=== PATIENT | male | born 1955 | race Caucasian/White ===

== ENCOUNTER → 2016-05-29 | Outpatient (CLI) | payer MEDICARE, MEDICAID | LOC: OD 17:00 | PROVIDERS: ATTEND Preventive Medicine Undersea and Hyperbaric Medicine | DX: L97.524 Non-pressure chronic ulcer of other part of left foot with necrosis of bone (principal); L97.512 Non-pressure chronic ulcer of other part of right foot with fat layer exposed ==

== ENCOUNTER → 2016-05-29 | Outpatient (CLI) | payer MEDICARE, MEDICAID ==
[2016-05-29 17:37] LABS: ABSOLUTE BASOPHILS # (AUTO) 0.1 10^3/uL (0.0-0.2); ABSOLUTE EOSINOPHILS # (AUTO) 0.2 10^3/uL (0.0-0.6); ABSOLUTE LYMPHOCYTES (AUTO) 2.8 10^3/uL (0.5-4.7); ABSOLUTE MONOCYTES (AUTO) 1.3 10^3/uL (0.1-1.4); ABSOLUTE NEUT (AUTO) 9.1 10^3/uL (1.7-8.2); BASOPHILS % (AUTO) 0.6 % (0-2); EOSINOPHILS % (AUTO) 1.1 % (0-6); HEMATOCRIT 47.6 % (37.9-51.0); HEMOGLOBIN 15.4 g/dL (13.5-17.0); HGB HCT DIFFERENCE -1.4; LYMPHOCYTES % (AUTO) 21.2 % (13-45); MEAN CORPUSCULAR HEMOGLOBIN 31.3 pg (27.0-33.4); MEAN CORPUSCULAR HGB CONC 32.3 g/dL (32.0-36.0); MEAN CORPUSCULAR VOLUME 97 fl (80-97); MONOCYTES % (AUTO) 9.5 % (3-13); RED BLOOD COUNT 4.91 10^6/uL (4.35-5.55); RED CELL DISTRIBUTION WIDTH 14.6 % (11.5-14.0); SEGMENTED NEUTROPHILS % (AUTO) 67.6 % (42-78); WHITE BLOOD COUNT 13.4 10^3/uL (4.0-10.5)
[2016-05-29 17:39] LABS: PROTHROMBIN TIME 31.7 SEC (11.4-15.4)
[2016-05-29 17:51] LABS: ALANINE AMINOTRANSFERASE 26 U/L (21-72); ALBUMIN 4.4 g/dL (3.5-5.0); ALKALINE PHOSPHATASE 74 U/L (38-126); ANION GAP 12 (5-19); ASPARTATE AMINO TRANSFERASE 23 U/L (17-59); BILIRUBIN,TOTAL 0.8 mg/dL (0.2-1.3); BLOOD UREA NITROGEN 24 mg/dL (7-20); C-REACTIVE PROTEIN 16.4 mg/L (<10.0); CALCIUM 9.6 mg/dL (8.4-10.2); CARBON DIOXIDE 26 mmol/L (22-30); CHLORIDE 107 mmol/L (98-107); CREATININE RESULT 1.49 mg/dL (0.52-1.25); GLUCOSE 85 mg/dL (75-110); POTASSIUM 4.6 mmol/L (3.6-5.0); SODIUM 145.4 mmol/L (137-145); TOTAL PROTEIN 7.2 g/dL (6.3-8.2)
[2016-05-29 18:14] LABS: ERYTHROCYTE SEDIMENTATION RATE 23 mm/hr (0-20)
== END ==
LOC: OD 16:29
PROVIDERS: ATTEND Internal Medicine
DX: L97.524 Non-pressure chronic ulcer of other part of left foot with necrosis of bone (principal); I48.2 Chronic atrial fibrillation; Z79.01 Long term (current) use of anticoagulants
CPT/HCPCS: 36415; 80053; 85025; 85610; 85652; 86140

== ENCOUNTER → 2016-07-08 | Outpatient (CLI) | payer MEDICARE, MEDICAID ==
[2016-07-08 16:17] LABS: PROTHROMBIN TIME 24.8 SEC (11.4-15.4)
== END ==
LOC: OD 15:15
PROVIDERS: ATTEND Internal Medicine
DX: I48.2 Chronic atrial fibrillation (principal); Z79.02 Long term (current) use of antithrombotics/antiplatelets
CPT/HCPCS: 36415; 85610

== ENCOUNTER → 2016-07-08 | Outpatient (CLI) | payer MEDICARE, MEDICAID | LOC: OD 15:09 | PROVIDERS: ATTEND Preventive Medicine Undersea and Hyperbaric Medicine | DX: L97.524 Non-pressure chronic ulcer of other part of left foot with necrosis of bone (principal) ==

== ENCOUNTER → 2016-08-07 | Outpatient (CLI) | payer MEDICARE, MEDICAID | LOC: OD 16:45 | PROVIDERS: ATTEND Preventive Medicine Undersea and Hyperbaric Medicine | DX: L97.513 Non-pressure chronic ulcer of other part of right foot with necrosis of muscle (principal) ==

== ENCOUNTER → 2016-09-18 | Outpatient (CLI) | payer MEDICARE, MEDICAID | LOC: OD 14:34 | PROVIDERS: ATTEND Internal Medicine | DX: I48.2 Chronic atrial fibrillation (principal); Z79.01 Long term (current) use of anticoagulants; Z53.8 Procedure and treatment not carried out for other reasons ==

== ENCOUNTER → 2016-09-24 | Outpatient (CLI) | payer MEDICARE, MEDICAID ==
[2016-09-23 18:16] LABS: PROTHROMBIN TIME 23.7 SEC (11.4-15.4)
== END ==
LOC: OD 11:28
PROVIDERS: ATTEND Internal Medicine
DX: I48.2 Chronic atrial fibrillation (principal); Z79.01 Long term (current) use of anticoagulants
CPT/HCPCS: 36415; 85610

== ENCOUNTER → 2016-10-16 | Outpatient (CLI) | payer MEDICARE, MEDICAID ==
[2016-10-16 15:06] LABS: PROTHROMBIN TIME 23.8 SEC (11.4-15.4)
== END ==
LOC: OD 14:22
PROVIDERS: ATTEND Internal Medicine
DX: I48.2 Chronic atrial fibrillation (principal); Z79.01 Long term (current) use of anticoagulants
CPT/HCPCS: 36415; 85610

== ENCOUNTER → 2016-10-16 | Outpatient (CLI) | payer MEDICARE, MEDICAID ==
[2016-10-16 14:58] LABS: ABSOLUTE BASOPHILS # (AUTO) 0.1 10^3/uL (0.0-0.2); ABSOLUTE EOSINOPHILS # (AUTO) 0.1 10^3/uL (0.0-0.6); ABSOLUTE LYMPHOCYTES (AUTO) 2.7 10^3/uL (0.5-4.7); ABSOLUTE MONOCYTES (AUTO) 0.9 10^3/uL (0.1-1.4); BASOPHILS % (AUTO) 0.6 % (0-2); EOSINOPHILS % (AUTO) 0.8 % (0-6); HEMATOCRIT 46.9 % (37.9-51.0); HEMOGLOBIN 15.4 g/dL (13.5-17.0); HGB HCT DIFFERENCE -0.7; LYMPHOCYTES % (AUTO) 23.3 % (13-45); MEAN CORPUSCULAR HEMOGLOBIN 30.9 pg (27.0-33.4); MEAN CORPUSCULAR HGB CONC 32.8 g/dL (32.0-36.0); MEAN CORPUSCULAR VOLUME 94 fl (80-97); MONOCYTES % (AUTO) 7.5 % (3-13); RED BLOOD COUNT 4.97 10^6/uL (4.35-5.55); RED CELL DISTRIBUTION WIDTH 14.8 % (11.5-14.0); SEGMENTED NEUTROPHILS % (AUTO) 67.8 % (42-78); WHITE BLOOD COUNT 11.8 10^3/uL (4.0-10.5)
--- NOTE | 2016-10-16 15:10 | RADIOLOGY REPORT (SQ) ---
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 TECHNIQUE: AP, lateral and oblique radiographic images acquired of the right foot. LIMITATIONS: None. FINDINGS: MINERALIZATION: Normal. BONES: No acute fracture or dislocation. No worrisome bone lesions. JOINTS: No effusions. SOFT TISSUES: No soft tissue swelling. No foreign body. OTHER: No other significant finding. IMPRESSION: NEGATIVE STUDY OF THE RIGHT FOOT. NO RADIOGRAPHIC EVIDENCE OF ACUTE INJURY. TECHNICAL DOCUMENTATION: JOB ID: [id number] [employer]- All Rights Reserved
[2016-10-16 15:25] LABS: ALANINE AMINOTRANSFERASE 25 U/L (21-72); ALKALINE PHOSPHATASE 69 U/L (38-126); ANION GAP 10 (5-19); ASPARTATE AMINO TRANSFERASE 19 U/L (17-59); BILIRUBIN,DIRECT 0.3 mg/dL (0.0-0.4); BILIRUBIN,TOTAL 0.8 mg/dL (0.2-1.3); BLOOD UREA NITROGEN 20 mg/dL (7-20); C-REACTIVE PROTEIN 12.7 mg/L (<10.0); CALCIUM 9.6 mg/dL (8.4-10.2); CARBON DIOXIDE 29 mmol/L (22-30); CHLORIDE 103 mmol/L (98-107); GLUCOSE 95 mg/dL (75-110); POTASSIUM 4.4 mmol/L (3.6-5.0); SODIUM 141.6 mmol/L (137-145)
[2016-10-16 15:44] LABS: ERYTHROCYTE SEDIMENTATION RATE 13 mm/hr (0-20)
== END ==
LOC: WC 14:17
PROVIDERS: ATTEND Preventive Medicine Undersea and Hyperbaric Medicine
DX: L97.512 Non-pressure chronic ulcer of other part of right foot with fat layer exposed (principal)
CPT/HCPCS: 36415; 80053; 85025; 85610; 85652; 86140

== ENCOUNTER → 2016-11-07 | Outpatient (CLI) | payer MEDICARE, MEDICAID ==
--- NOTE | 2016-11-07 11:19 | RADIOLOGY REPORT (SQ) ---
EXAM DESCRIPTION: U/S ABD AORTIC SCREENING COMPLETED DATE/TIME: 11/07/2016 10:35 am REASON FOR STUDY: PERIPHERAL VASCULAR DISEASE, UNSPECIFIED N18.3 CHRONIC KIDNEY DISEASE, STAGE 3 (M ODERATE) I73.9 PERIPHERAL VASCULAR DISEASE, UNSPECIFIED I12.9 HYPERTENSIVE CHRONIC KIDNEY DISEASE W STG 1-4/UNSP CHR COMPARISON: None. TECHNIQUE: Static and dynamic grayscale images acquired of the aorta and stored on PACs. Selected co tyler Doppler and spectral images recorded. LIMITATIONS: None. FINDINGS: AORTIC CALIBER MAXIMAL PROXIMAL: 2.0 cm. MID: 1.7 cm. DISTAL: 1.9 cm. ILIAC DIAMETER RIGHT: 1.3 cm. LEFT: 1.4 cm. OTHER: No other significant finding. IMPRESSION: NO ABDOMINAL AORTIC ANEURYSM. TECHNICAL DOCUMENTATION: JOB ID: [id number] [employer]- All Rights Reserved
--- NOTE | 2016-11-07 11:31 | RADIOLOGY REPORT (SQ) ---
EXAM DESCRIPTION: U/S RETROPERITON (RENAL/AORTA) COMPLETED DATE/TIME: 11/07/2016 10:31 am REASON FOR STUDY: CKD STAGE 3 N18.3 CHRONIC KIDNEY DISEASE, STAGE 3 (MODERATE) I73.9 PERIPHERAL VA SCULAR DISEASE, UNSPECIFIED I12.9 HYPERTENSIVE CHRONIC KIDNEY DISEASE W STG 1-4/UNSP CHR COMPARISON: None. TECHNIQUE: Dynamic and static grayscale images acquired of the kidneys and bladder and recorded on P ACS. Additional selected color Doppler and spectral images recorded. LIMITATIONS: None. FINDINGS: RIGHT KIDNEY: Right kidney is 9.5 cm in length. Diffuse cortical thinning and increased e chogenicity from medical renal disease. There is a shadowing stone in the lower pole right kidney, 2 cm in diameter. LEFT KIDNEY: Left kidney is 12 cm in length. Grossly normal cortical thickness. Question 2 cm eric d cortical nodule along the left upper pole kidney. Patient has renal insufficiency, non contrasted MRI is recommended for followup, to include coronal T2, coronal STIR, coronal T1 weighted images, axi al T2, axial T1, and axial fat-sat T1 weighted images for followup. BLADDER: No masses. OTHER FINDINGS: No other significant finding. IMPRESSION: Diffuse right renal cortical thinning and increased echogenicity, likely from chronic ar terial insufficiency. Normal size left kidney with normal cortical thickness. Question 2 cm solid nodule upper pole left k idney for which noncontrast MRI is recommended for followup. TECHNICAL DOCUMENTATION: JOB ID: [id number]- All Rights Reserved
--- NOTE | 2016-11-07 12:26 | RADIOLOGY REPORT (SQ) ---
EXAM DESCRIPTION: CAROTID DOPPLER COMPLETED DATE/TIME: 11/07/2016 11:51 am REASON FOR STUDY: PAD I73.9 N18.3 CHRONIC KIDNEY DISEASE, STAGE 3 (MODERATE) I73.9 PERIPHERAL VASC ULAR DISEASE, UNSPECIFIED I12.9 HYPERTENSIVE CHRONIC KIDNEY DISEASE W STG 1-4/UNSP CHR COMPARISON: None. TECHNIQUE: Grayscale ultrasound, Doppler velocity and spectra, and color Doppler images acquired of the extra-cranial carotid and vertebral arteries. Images stored on PACS. LIMITATIONS: None. FINDINGS: RIGHT CAROTID CCA Velocities: Within normal limits. ICA Velocities Peak systolic 1.05 m/s. End diastolic 0.54 m/s. Proximal ICA/CCA peak systolic ratio 2.2. Heterogeneous irregular plaque noted within the ICA. Normal waveforms LEFT CAROTID CCA Velocities: Within normal limits. ICA Velocities Peak systolic 1.1 m/s. End diastolic 0.39 m/s. Proximal ICA/CCA peak systolic ratio 1.9. Irregular heterogeneous plaque noted in the proximal ICA. Normal waveforms. VERTEBRAL ARTERIES: Antegrade flow. Normal waveforms. SUBCLAVIAN ARTERIES: No finding. OTHER: No other significant finding. IMPRESSION: NO HEMODYNAMICALLY SIGNIFICANT STENOSIS. COMMENT: Quality ID #[id number]: Velocity criteria are extrapolated from the diameter data as defined by t he Society of Radiologists in Ultrasound Consensus Conference. Radiology 2003: 229; 340-346. TECHNICAL DOCUMENTATION: JOB ID: [id number]- All Rights Reserved
== END ==
LOC: RAD 09:06
PROVIDERS: ATTEND Family Medicine
DX: R19.00 Intra-abdominal and pelvic swelling, mass and lump, unspecified site (principal); I73.9 Peripheral vascular disease, unspecified; I25.10 Atherosclerotic heart disease of native coronary artery without angina pectoris; I12.9 Hypertensive chronic kidney disease with stage 1 through stage 4 chronic kidney disease, or unspecified chronic kidney disease; N18.3 Chronic kidney disease, stage 3 (moderate); E78.5 Hyperlipidemia, unspecified; Z72.0 Tobacco use
CPT/HCPCS: 76706; 76770; 93880

== ENCOUNTER 2016-11-13 14:36 | Emergency (ER) | payer MEDICARE, MEDICAID ==
--- NOTE | 2016-11-13 18:46 | ER Document Report ---
ED Fall - General Information source: Patient TRAVEL OUTSIDE OF THE [place]. IN LAST 30 DAYS: No - HPI Occurred: Other - Friday Where: Home Context: Slipped Location of injury/pain: Chest - right ribs <MANNY ESCALANTE - Last Filed: 11/13/16 22:34> <BRUCE ODONNELL - Last Filed: 11/14/16 04:26> - General Chief Complaint: Rib Pain Stated Complaint: RIB PAIN Time Seen by Provider: 11/13/16 18:33 Notes: Patient is a 61 year old male who presents to the ED with complaints of right rib pain secondary to a fall that occurred on Friday. Patient states he slipped on his walking shoe causing the fall, patient landed on bricks. Patient states he is in constant pain and it is exacerbated by movement but there are not any relieving factors. Patient states he has had fractured ribs in the past so he wrapped himself with an abdi bandage like in the past. Patient states today he developed a productive cough which he is attributing to smoking more than baseline over the weekend. Patient denies a known history of any lung diseases. Patient took 1500 mg of Tylenol this morning at 1000 which he states he takes daily. No other concerns or complaints at this time. ( MANNY ESCALANTE) - Related data Allergies/Adverse Reactions: No Known Allergies Allergy (Unverified 03/09/15 12:33) Past Medical History - General Information source: Patient - Social History Smoking Status: Current Every Day Smoker Chew tobacco use (# tins/day): No Frequency of alcohol use: Occasional Drug Abuse: None Patient has suicidal ideation: No Patient has homicidal ideation: No - Past Medical History Cardiac Medical History: Reports: Hx Coronary Artery Disease, Hx Heart Attack, Hx Hypertension Pulmonary Medical History: Denies: Hx Asthma, Hx Bronchitis, Hx COPD, Hx Pneumonia Neurological Medical History: Denies: Hx Cerebrovascular Accident, Hx Seizures Renal/ Medical History: Denies: Hx Peritoneal Dialysis Musculoskeltal Medical History: Reports Hx Arthritis - Immunizations Hx Diphtheria, Pertussis, Tetanus Vaccination: No Hx Pneumococcal Vaccination: 02/20/13 <MANNY ESCALANTE - Last Filed: 11/13/16 22:34> - Social History Family History: Reviewed & Not Pertinent <BRUCE ODONNELL - Last Filed: 11/14/16 04:26> Review of Systems - Review of Systems Constitutional: No symptoms reported EENT: No symptoms reported Cardiovascular: No symptoms reported Respiratory: See HPI, Cough - productive Gastrointestinal: No symptoms reported Genitourinary: No symptoms reported Male Genitourinary: No symptoms reported Musculoskeletal: See HPI, Other - right rib pain Skin: No symptoms reported Hematologic/Lymphatic: No symptoms reported Neurological/Psychological: No symptoms reported <MANNY ESCALANTE - Last Filed: 11/13/16 22:34> Physical Exam - General General appearance: Appears well - HEENT Head: Normocephalic, Atraumatic Eyes: Normal Extraocular movements intact: Yes Pupils: PERRL - Respiratory Respiratory status: No respiratory distress Chest status: Tender - right lateral chest wall pain Breath sounds: Normal - Cardiovascular Rhythm: Regular Heart sounds: Normal auscultation Murmur: No - Abdominal Inspection: Normal Distension: No distension Tenderness: Nontender. No: Tender - Back Back: Normal - Extremities General upper extremity: Normal inspection, Normal ROM General lower extremity: Normal inspection, Normal ROM - Neurological Neuro grossly intact: Yes Cognition: Normal Orientation: AAOx4 Naseem Coma Scale Eye Opening: Spontaneous [place] Coma Scale Verbal: Oriented [place] Coma Scale Motor: Obeys Commands Naseem Coma Scale Total: 15 Speech: Normal - Psychological Associated symptoms: Normal affect, Normal mood - Skin Skin Temperature: Warm Skin Moisture: Dry Skin Color: Normal <MANNY ESCALNATE - Last Filed: 11/13/16 22:34> Course <MANNY ESCALANTE - Last Filed: 11/13/16 22:34> - Diagnostic Test Radiology reviewed: Reports reviewed <BRUCE ODONNELL - Last Filed: 11/14/16 04:26> - Re-evaluation Re-evalutation: Patient presents with right reproducible chest wall pain after a fall on Friday under his right side. No acute findings on x-ray. Patient has reproducible tenderness to palpation. No abdominal pain. Patient began having a productive cough this morning. No evidence for x-ray but due to his comorbidities, patient will be started on Levaquin for possible early pneumonia related to his chest wall injury. Patient will be discharged home with Tylenol with codeine which she is taken from pain in the past as well as Levaquin. Stable for discharge. Understands and agrees with plan. Follow-up with PMD this week. (BRUCE ODONNELL) - Vital Signs Vital signs: Temp Pulse Resp BP Pulse Ox 98.0 F 73 14 150/92 H 97 11/13/16 19:05 11/13/16 19:05 11/13/16 19:05 11/13/16 19:05 11/13/16 19:05 Discharge <MANNY ESCALANTE - Last Filed: 11/13/16 22:34> <BRUCE ODONNELL - Last Filed: 11/14/16 04:26> - Discharge Clinical Impression: Cough Chest wall injury Qualifiers: Encounter type: initial encounter Qualified Code(s): S29.9XXA - Unspecified injury of thorax, initial encounter Condition: Stable Disposition: HOME, SELF-CARE Instructions: Chest Wall Pain ([facility]), Pneumonia ([facility]), Rib Injuries and Fractures ([facility]) Prescriptions: Acetaminophen with Codeine [Tylenol with Codeine #3 Tablet] 1 tab PO TIDP PRN # 14 tab PRN Reason: Levofloxacin [Levaquin 750 mg Tablet] 750 mg PO DAILY #5 tablet Referrals: RIMA REIS DO [Primary Care Provider] - Follow up in 3-5 days Scribe Attestation: 11/14/16 04:26 I personally performed the services described in the documentation, reviewed and edited the documentation which was dictated to the scribe in my presence, and it accurately records my words and actions. (BRUCE ODONNELL) Scribe Documentation - Scribe Written by Norberto:: norberto Tabor, 11/[id number] acting as scribe for :: Bill <MANNY ESCALANTE - Last Filed: 11/13/16 22:34>
[2016-11-13 19:07] VITALS: BP 150/92
--- NOTE | 2016-11-13 19:21 | RADIOLOGY REPORT (SQ) ---
EXAM DESCRIPTION: RIBS RIGHT W/PA CHEST COMPLETED DATE/TIME: 11/13/2016 6:57 pm REASON FOR STUDY: fall, pain COMPARISON: None. TECHNIQUE: Frontal view of the chest and additional views of the right ribs acquired. NUMBER OF VIEWS: Four views LIMITATIONS: None. FINDINGS: FRONTAL CXR: No pneumothorax. No pleural effusion. No atelectasis or infiltrates. RIBS: No displaced rib fractures. No lytic or blastic bony lesions. Couple old healed right rib fra ctures are identified. OTHER: No other significant finding. IMPRESSION: NO PNEUMOTHORAX. NO DISPLACED RIB FRACTURES. COMMENT: SITE OF TRAUMA/COMPLAINT MARKED/STAMP COMPLETED: No TECHNICAL DOCUMENTATION: JOB ID: [id number] [employer]- All Rights Reserved
[2016-11-13] MEDS ORDERED: ACETAMINOPHEN WITH CODEINE #3 TABLET PO ONE (19:46)
[2016-11-13] MEDS ORDERED: LEVOFLOXACIN 750 MG TABLET PO ONE (19:46)
== END 2016-11-13 21:07 | disposition home or self-care (01) ==
LOC: ER 14:36
DX: S29.9XXA Unspecified injury of thorax, initial encounter (principal); R07.81 Pleurodynia; R05 Cough; F17.200 Nicotine dependence, unspecified, uncomplicated; W01.0XXA Fall on same level from slipping, tripping and stumbling without subsequent striking against object, initial encounter; Y92.009 Unspecified place in unspecified non-institutional (private) residence as the place of occurrence of the external cause; I25.10 Atherosclerotic heart disease of native coronary artery without angina pectoris; I10 Essential (primary) hypertension; I25.2 Old myocardial infarction
CPT/HCPCS: 99283; 71101; A9270 ×2

== ENCOUNTER → 2016-11-29 | Outpatient (CLI) | payer MEDICARE, MEDICAID ==
[2016-11-29 15:23] LABS: ABSOLUTE BASOPHILS # (AUTO) 0.1 10^3/uL (0.0-0.2); ABSOLUTE EOSINOPHILS # (AUTO) 0.1 10^3/uL (0.0-0.6); ABSOLUTE LYMPHOCYTES (AUTO) 2.8 10^3/uL (0.5-4.7); ABSOLUTE NEUT (AUTO) 8.6 10^3/uL (1.7-8.2); BASOPHILS % (AUTO) 0.4 % (0-2); EOSINOPHILS % (AUTO) 0.8 % (0-6); HEMATOCRIT 45.4 % (37.9-51.0); HGB HCT DIFFERENCE -0.4; LYMPHOCYTES % (AUTO) 22.6 % (13-45); MEAN CORPUSCULAR HEMOGLOBIN 31.5 pg (27.0-33.4); MEAN CORPUSCULAR VOLUME 96 fl (80-97); MONOCYTES % (AUTO) 7.8 % (3-13); PROTHROMBIN TIME 21.8 SEC (11.4-15.4); RED BLOOD COUNT 4.76 10^6/uL (4.35-5.55); RED CELL DISTRIBUTION WIDTH 14.4 % (11.5-14.0); SEGMENTED NEUTROPHILS % (AUTO) 68.4 % (42-78); WHITE BLOOD COUNT 12.6 10^3/uL (4.0-10.5)
[2016-11-29 15:28] LABS: APPEARANCE,URINE CLEAR; BILIRUBIN,URINE NEGATIVE (NEGATIVE); GLUCOSE, URINE NEGATIVE (NEGATIVE); KETONES,URINE NEGATIVE (NEGATIVE); LEUKOCYTE ESTERASE,URINE NEGATIVE (NEGATIVE); NITRITE,URINE NEGATIVE (NEGATIVE); PROTEIN,URINE 30 mg/dL (NEGATIVE); URINE SPECIFIC GRAVITY 1.011; UROBILINOGEN,URINE NEGATIVE mg/dL (<2.0)
[2016-11-29 15:37] LABS: ALANINE AMINOTRANSFERASE 29 U/L (21-72); ALBUMIN 3.9 g/dL (3.5-5.0); ALKALINE PHOSPHATASE 77 U/L (38-126); ANION GAP 11 (5-19); ASPARTATE AMINO TRANSFERASE 18 U/L (17-59); BILIRUBIN,DIRECT 0.3 mg/dL (0.0-0.4); BILIRUBIN,TOTAL 0.7 mg/dL (0.2-1.3); BLOOD UREA NITROGEN 22 mg/dL (7-20); CALCIUM 9.3 mg/dL (8.4-10.2); CARBON DIOXIDE 27 mmol/L (22-30); CHLORIDE 105 mmol/L (98-107); CREATININE RESULT 1.28 mg/dL (0.52-1.25); GLUCOSE 85 mg/dL (75-110); POTASSIUM 4.7 mmol/L (3.6-5.0); SODIUM 142.5 mmol/L (137-145); TOTAL PROTEIN 6.6 g/dL (6.3-8.2); URIC ACID 6.7 mg/dL (3.5-8.5)
== END ==
LOC: OD 14:21
PROVIDERS: ATTEND Internal Medicine
DX: I12.9 Hypertensive chronic kidney disease with stage 1 through stage 4 chronic kidney disease, or unspecified chronic kidney disease (principal); N18.3 Chronic kidney disease, stage 3 (moderate); Z79.01 Long term (current) use of anticoagulants; I48.2 Chronic atrial fibrillation
CPT/HCPCS: 36415; 80053; 81001; 84550; 85025; 85610

== ENCOUNTER → 2016-12-03 | Outpatient (CLI) | payer MEDICARE, MEDICAID ==
--- NOTE | 2016-12-03 15:05 | RADIOLOGY REPORT (SQ) ---
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 TECHNIQUE: Noncontrast imaging of the abdomen, including axial and coronal T1 and T2 weighted sequen frantz and in and out of phase T1 sequences. LIMITATIONS: None. FINDINGS: RIGHT KIDNEY: Mildly atrophic with mild cortical thinning. No solid or cystic masses. N o hydronephrosis. LEFT KIDNEY: No solid or cystic masses. No hydronephrosis. ADRENAL GLANDS: Normal configuration. No mass. GALLBLADDER: No masses. No stones. No gallbladder wall thickening or pericholecystic fluid. LIVER AND BILIARY STRUCTURES: Normal. No ductal dilatation. SPLEEN: Normal. PANCREAS: Normal. Peripancreatic tissues normal. PERITONEUM: No ascites, gross adenopathy or implants. OTHER: No other significant finding. IMPRESSION: MILD ATROPHY OF THE RIGHT KIDNEY. OTHERWISE UNREMARKABLE NONCONTRAST MRI OF THE ABDOMEN . NO MASS OR OTHER ABNORMALITY IDENTIFIED IN THE LEFT KIDNEY. FINDINGS ON ULTRASOUND ARE DUE TO MIL D IRREGULARITY OF THE RENAL CONTOUR. TECHNICAL DOCUMENTATION: JOB ID: [id number] [employer]- All Rights Reserved
== END ==
LOC: RAD 10:39
PROVIDERS: ATTEND Internal Medicine Nephrology
DX: D41.02 Neoplasm of uncertain behavior of left kidney (principal); N18.3 Chronic kidney disease, stage 3 (moderate)
CPT/HCPCS: 74181

== ENCOUNTER → 2016-12-18 | Outpatient (CLI) | payer MEDICARE, MEDICAID ==
[2016-12-18 14:04] LABS: PROTHROMBIN TIME 32.2 SEC (11.4-15.4)
== END ==
LOC: OD 12:11
PROVIDERS: ATTEND Internal Medicine
DX: I48.2 Chronic atrial fibrillation (principal); Z79.01 Long term (current) use of anticoagulants
CPT/HCPCS: 36415; 85610

== ENCOUNTER → 2017-01-29 | Outpatient (CLI) | payer MEDICARE, MEDICAID ==
[2017-01-29 17:55] LABS: PROTHROMBIN TIME 20.8 SEC (11.4-15.4)
== END ==
LOC: OD 16:26
PROVIDERS: ATTEND Internal Medicine
DX: Z79.01 Long term (current) use of anticoagulants (principal); I48.2 Chronic atrial fibrillation
CPT/HCPCS: 36415; 85610

== ENCOUNTER → 2017-02-19 | Outpatient (CLI) | payer MEDICARE, MEDICAID ==
[2017-02-19 17:55] LABS: PROTHROMBIN TIME 25.7 SEC (11.4-15.4)
== END ==
LOC: OD 16:14
PROVIDERS: ATTEND Internal Medicine
DX: Z79.01 Long term (current) use of anticoagulants (principal); I48.2 Chronic atrial fibrillation
CPT/HCPCS: 36415; 85610

== ENCOUNTER → 2017-03-24 | Outpatient (CLI) | payer MEDICARE, MEDICAID ==
[2017-03-24 12:58] LABS: PROTHROMBIN TIME 27.5 SEC (11.4-15.4)
== END ==
LOC: OD 10:30
PROVIDERS: ATTEND Internal Medicine
DX: I48.2 Chronic atrial fibrillation (principal); Z79.01 Long term (current) use of anticoagulants
CPT/HCPCS: 36415; 85610

== ENCOUNTER → 2017-04-16 | Outpatient (CLI) | payer MEDICARE, MEDICAID ==
[2017-04-16 17:21] LABS: HEMATOCRIT 49.8 % (37.9-51.0); HEMOGLOBIN 16.8 g/dL (13.5-17.0); HGB HCT DIFFERENCE 0.6; MEAN CORPUSCULAR HEMOGLOBIN 30.7 pg (27.0-33.4); MEAN CORPUSCULAR HGB CONC 33.7 g/dL (32.0-36.0); MEAN CORPUSCULAR VOLUME 91 fl (80-97); RED BLOOD COUNT 5.46 10^6/uL (4.35-5.55); WHITE BLOOD COUNT 15.1 10^3/uL (4.0-10.5)
[2017-04-16 17:28] LABS: APPEARANCE,URINE CLEAR; BILIRUBIN,URINE NEGATIVE (NEGATIVE); GLUCOSE, URINE NEGATIVE (NEGATIVE); KETONES,URINE NEGATIVE (NEGATIVE); LEUKOCYTE ESTERASE,URINE NEGATIVE (NEGATIVE); NITRITE,URINE NEGATIVE (NEGATIVE); PROTEIN,URINE NEGATIVE (NEGATIVE); URINE SPECIFIC GRAVITY 1.012; UROBILINOGEN,URINE NEGATIVE mg/dL (<2.0)
[2017-04-16 17:29] LABS: PROTHROMBIN TIME 46.6 SEC (11.4-15.4)
[2017-04-16 17:42] LABS: ANION GAP 15 (5-19); BLOOD UREA NITROGEN 29 mg/dL (7-20); CALCIUM 9.4 mg/dL (8.4-10.2); CARBON DIOXIDE 28 mmol/L (22-30); CHLORIDE 102 mmol/L (98-107); CREATININE RESULT 1.52 mg/dL (0.52-1.25); GLUCOSE 88 mg/dL (75-110); POTASSIUM 4.5 mmol/L (3.6-5.0); SODIUM 145.2 mmol/L (137-145)
[2017-04-16 17:45] LABS: URINE CREATININE 136.2 mg/dL (22-328); URINE PROTEIN 19.3 mg/dL (<12)
== END ==
LOC: OD 15:33
PROVIDERS: ATTEND Internal Medicine Nephrology
DX: I12.9 Hypertensive chronic kidney disease with stage 1 through stage 4 chronic kidney disease, or unspecified chronic kidney disease (principal); N18.3 Chronic kidney disease, stage 3 (moderate); R80.9 Proteinuria, unspecified; I48.2 Chronic atrial fibrillation; Z79.01 Long term (current) use of anticoagulants
CPT/HCPCS: 36415; 80048; 81001; 82570; 84156; 85027; 85610

== ENCOUNTER → 2017-04-30 | Outpatient (CLI) | payer MEDICARE, MEDICAID ==
--- NOTE | 2017-04-30 16:31 | RADIOLOGY REPORT (SQ) ---
EXAM DESCRIPTION: FOOT RIGHT COMPLETE COMPLETED DATE/TIME: 04/30/2017 3:29 pm REASON FOR STUDY: NON-PRS CHRONIC ULCER OTH PRT RIGHT FOOT W NECROSIS OF BONE L97.514 NON-PRS CHRON IC ULCER OTH PRT RIGHT FOOT W NECROSIS COMPARISON: Right foot films 08/07/2016, 10/16/2016, 03/05/2017 NUMBER OF VIEWS: Three views. TECHNIQUE: AP, lateral and oblique radiographic images acquired of the right foot. LIMITATIONS: None. FINDINGS: MINERALIZATION: Aggressive demineralization of the knees right 4th proximal phalanx, and m edial aspect of the 5th metatarsal head and base 5th proximal phalanx worrisome for osteomyelitis. BONES: Post amputation of right 4th metatarsal at the midshaft. There is a 2 cm radiodensity at the amputation site which may be antibiotic impregnated material or bone graft. JOINTS: Mild 1st metatarsophalangeal joint space narrowing. SOFT TISSUES: Diffuse forefoot soft tissue swelling OTHER: Artifact from cast IMPRESSION: Aggressive bony demineralization at the base of the 4th toe proximal phalanx, and medial aspect of the 5th metatarsal head and 5th toe proximal phalanx worrisome for osteomyelitis. Overlyi ng soft tissue swelling. TECHNICAL DOCUMENTATION: JOB ID: [id number] [employer]- All Rights Reserved
== END ==
LOC: OD 15:08
PROVIDERS: ATTEND Preventive Medicine Undersea and Hyperbaric Medicine
DX: L97.514 Non-pressure chronic ulcer of other part of right foot with necrosis of bone (principal)

== ENCOUNTER → 2017-06-13 | Outpatient (CLI) | payer MEDICARE, MEDICAID ==
[2017-06-13 16:59] LABS: HEMATOCRIT 46.6 % (37.9-51.0); HEMOGLOBIN 15.7 g/dL (13.5-17.0); MEAN CORPUSCULAR HEMOGLOBIN 30.5 pg (27.0-33.4); MEAN CORPUSCULAR HGB CONC 33.6 g/dL (32.0-36.0); MEAN CORPUSCULAR VOLUME 91 fl (80-97); PLATELET COUNT 271 10^3/uL (150-450); RED BLOOD COUNT 5.13 10^6/uL (4.35-5.55); RED CELL DISTRIBUTION WIDTH 16.8 % (11.5-14.0); WHITE BLOOD COUNT 9.2 10^3/uL (4.0-10.5)
--- NOTE | 2017-06-13 17:00 | RADIOLOGY REPORT (SQ) ---
EXAM DESCRIPTION: CHEST PA/LATERAL COMPLETED DATE/TIME: 06/13/2017 4:46 pm REASON FOR STUDY: PNEUMOTHORAX,UNSPEC COMPARISON: 02/01/2014. EXAM PARAMETERS: NUMBER OF VIEWS: two views TECHNIQUE: Digital Frontal and Lateral radiographic views of the chest acquired. RADIATION DOSE: NA LIMITATIONS: none FINDINGS: LUNGS AND PLEURA: No opacities, masses or pneumothorax. No pleural effusion. MEDIASTINUM AND HILAR STRUCTURES: No masses or contour abnormalities. HEART AND VASCULAR STRUCTURES: Heart upper limits of normal size. No evidence for failure. BONES: No acute findings. HARDWARE: None in the chest. OTHER: No other significant finding. IMPRESSION: NO SIGNIFICANT RADIOGRAPHIC FINDING IN THE CHEST. TECHNICAL DOCUMENTATION: JOB ID: [id number] [employer]- All Rights Reserved
--- NOTE | 2017-06-13 17:03 | RADIOLOGY REPORT (SQ) ---
EXAM DESCRIPTION: FOOT RIGHT COMPLETE COMPLETED DATE/TIME: 06/13/2017 4:46 pm REASON FOR STUDY: NON-PRS CHRONIC ULCER OTH PRT RIGHT FOOT W NECROSIS OF BONE Z11.59 ENCOUNTER FOR SCREENING FOR OTHER VIRAL DISEASES N18.3 CHRONIC KIDNEY DISEASE, STAGE 3 (MODERATE) I48.2 CHRONIC A TRIAL FIBRILLATION COMPARISON: 04/30/2017. NUMBER OF VIEWS: Three views. TECHNIQUE: AP, lateral and oblique radiographic images acquired of the right foot. LIMITATIONS: None. FINDINGS: MINERALIZATION: Normal. BONES: Interval resection of the distal 4th metatarsal. Osteopenia and cortical destruction at the b ase of the proximal phalanx of the 4th toe. JOINTS: No effusions. SOFT TISSUES: No soft tissue swelling. No foreign body. OTHER: No other significant finding. IMPRESSION: INTERVAL RESECTION OF THE DISTAL 4TH METATARSAL. AGAIN SEEN IS OSTEOPENIA AND CORTICAL DESTRUCTION AT THE BASE OF THE PROXIMAL PHALANX 4TH TOE. TECHNICAL DOCUMENTATION: JOB ID: [id number] [employer]- All Rights Reserved
[2017-06-13 17:18] LABS: INTERNATIONAL RATION (INR) 1.81
[2017-06-13 17:45] LABS: ANION GAP 9 (5-19); BLOOD UREA NITROGEN 18 mg/dL (7-20); CARBON DIOXIDE 27 mmol/L (22-30); CHLORIDE 103 mmol/L (98-107); GLUCOSE 81 mg/dL (75-110); POTASSIUM 4.6 mmol/L (3.6-5.0); SODIUM 139.1 mmol/L (137-145)
[2017-06-15 07:39] LABS: HEPATITIS C VIRUS AB 0.1 s/co ratio (0.0-0.9)
== END ==
LOC: OD 15:30
PROVIDERS: ATTEND Family Medicine
DX: J93.9 Pneumothorax, unspecified (principal); L97.514 Non-pressure chronic ulcer of other part of right foot with necrosis of bone; L97.512 Non-pressure chronic ulcer of other part of right foot with fat layer exposed; Z11.59 Encounter for screening for other viral diseases; I12.9 Hypertensive chronic kidney disease with stage 1 through stage 4 chronic kidney disease, or unspecified chronic kidney disease; N18.3 Chronic kidney disease, stage 3 (moderate); R80.9 Proteinuria, unspecified; I48.2 Chronic atrial fibrillation
CPT/HCPCS: 36415; 71046; 80048; 85027; 85610; 86803; 86804

== ENCOUNTER → 2017-06-13 | Outpatient (CLI) | payer MEDICARE, MEDICAID ==
[2017-06-13 16:59] LABS: ABSOLUTE BASOPHILS # (AUTO) 0.1 10^3/uL (0.0-0.2); ABSOLUTE EOSINOPHILS # (AUTO) 0.1 10^3/uL (0.0-0.6); ABSOLUTE LYMPHOCYTES (AUTO) 2.9 10^3/uL (0.5-4.7); ABSOLUTE MONOCYTES (AUTO) 0.7 10^3/uL (0.1-1.4); ABSOLUTE NEUT (AUTO) 5.6 10^3/uL (1.7-8.2); BASOPHILS % (AUTO) 0.7 % (0-2); EOSINOPHILS % (AUTO) 1.3 % (0-6); HEMATOCRIT 47.4 % (37.9-51.0); HEMOGLOBIN 15.6 g/dL (13.5-17.0); LYMPHOCYTES % (AUTO) 30.2 % (13-45); MEAN CORPUSCULAR HEMOGLOBIN 30.2 pg (27.0-33.4); MEAN CORPUSCULAR VOLUME 92 fl (80-97); MONOCYTES % (AUTO) 7.8 % (3-13); PLATELET COUNT 268 10^3/uL (150-450); RED BLOOD COUNT 5.18 10^6/uL (4.35-5.55); RED CELL DISTRIBUTION WIDTH 16.6 % (11.5-14.0); TOTAL CELLS COUNTED % (AUTO) 100 %; WHITE BLOOD COUNT 9.4 10^3/uL (4.0-10.5)
[2017-06-13 17:21] LABS: ALANINE AMINOTRANSFERASE 29 U/L (21-72); ALBUMIN 4.2 g/dL (3.5-5.0); ALKALINE PHOSPHATASE 66 U/L (38-126); ANION GAP 9 (5-19); ASPARTATE AMINO TRANSFERASE 29 U/L (17-59); BILIRUBIN,DIRECT 0.7 mg/dL (0.0-0.4); BILIRUBIN,TOTAL 0.9 mg/dL (0.2-1.3); BLOOD UREA NITROGEN 18 mg/dL (7-20); C-REACTIVE PROTEIN 13.6 mg/L (<10.0); CARBON DIOXIDE 27 mmol/L (22-30); CHLORIDE 103 mmol/L (98-107); GLUCOSE 81 mg/dL (75-110); POTASSIUM 4.6 mmol/L (3.6-5.0); SODIUM 139.1 mmol/L (137-145); TOTAL PROTEIN 6.8 g/dL (6.3-8.2)
[2017-06-13 17:43] LABS: ERYTHROCYTE SEDIMENTATION RATE 10 mm/hr (0-20)
== END ==
LOC: WC 15:55
PROVIDERS: ATTEND Preventive Medicine Undersea and Hyperbaric Medicine
DX: L97.512 Non-pressure chronic ulcer of other part of right foot with fat layer exposed (principal)
CPT/HCPCS: 36415; 80053; 85025; 85652; 86140

== ENCOUNTER → 2017-07-14 | Outpatient (CLI) | payer MEDICARE, MEDICAID ==
--- NOTE | 2017-07-14 17:08 | RADIOLOGY REPORT (SQ) ---
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 NUMBER OF VIEWS: Three views. TECHNIQUE: AP, lateral and oblique radiographic images acquired of the right foot. LIMITATIONS: None. FINDINGS: MINERALIZATION: Normal. BONES: Amputation of the distal 4th metatarsal. Regional osteopenia involving the proximal end of th e proximal phalanx of the 4th and 5th toe. Periosteal reaction involving the proximal phalanx of the 4th toe. Cortical irregularity at the base. JOINTS: No effusions. SOFT TISSUES: No soft tissue swelling. No foreign body. OTHER: No other significant finding. IMPRESSION: AMPUTATION OF THE DISTAL 4TH METATARSAL. OSTEOPENIA AND PERIOSTEAL REACTION INVOLVING T HE PROXIMAL PHALANX OF THE 4TH TOE. CORTICAL IRREGULARITY AT THE BASE. CONCERNING FOR OSTEOMYELITIS . TECHNICAL DOCUMENTATION: JOB ID: [id number] [employer]- All Rights Reserved Reading location - IP/workstation name: [email or web address]
== END ==
LOC: OD 15:28
PROVIDERS: ATTEND Preventive Medicine Undersea and Hyperbaric Medicine
DX: L97.512 Non-pressure chronic ulcer of other part of right foot with fat layer exposed (principal); M85.871 Other specified disorders of bone density and structure, right ankle and foot

== ENCOUNTER → 2017-08-14 | Outpatient (CLI) | payer MEDICARE, MEDICAID ==
[2017-08-14 14:18] LABS: PROTHROMBIN TIME 31.6 SEC (11.4-15.4)
== END ==
LOC: OD 13:13
PROVIDERS: ATTEND Specialist
DX: I25.10 Atherosclerotic heart disease of native coronary artery without angina pectoris (principal); I48.2 Chronic atrial fibrillation; Z79.01 Long term (current) use of anticoagulants; G45.9 Transient cerebral ischemic attack, unspecified; E78.5 Hyperlipidemia, unspecified; F17.210 Nicotine dependence, cigarettes, uncomplicated; R01.1 Cardiac murmur, unspecified; I12.9 Hypertensive chronic kidney disease with stage 1 through stage 4 chronic kidney disease, or unspecified chronic kidney disease; N18.3 Chronic kidney disease, stage 3 (moderate); R06.00 Dyspnea, unspecified; Z79.899 Other long term (current) drug therapy
CPT/HCPCS: 36415; 85610

== ENCOUNTER → 2017-08-14 | Outpatient (CLI) | payer MEDICARE, MEDICAID ==
--- NOTE | 2017-08-14 15:01 | RADIOLOGY REPORT (SQ) ---
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 TECHNIQUE: AP, lateral and oblique radiographic images acquired of the right foot. LIMITATIONS: None. FINDINGS: Patient is post resection of the distal half of the right 4th metatarsal. Healing at the osteotomy site. There is demineralization of the 4th toe proximal phalanx, with periosteal new bone formation along t he 4th toe proximal phalanx. Question osteomyelitis. There is demineralization of the 5th metatarsal head and base 5th proximal phalanx without periostiti s. This is similar compared to multiple previous studies. No radiopaque foreign body. No soft tissue gas. Small dorsal calcaneal spur. IMPRESSION: Healed osteotomy of the 4th metatarsal Demineralization of the 4th toe proximal phalanx with periosteal new bone worrisome for osteomyelitis TECHNICAL DOCUMENTATION: JOB ID: [id number] [employer]- All Rights Reserved Reading location - IP/workstation name: [email or web address]
== END ==
LOC: OD 13:28
PROVIDERS: ATTEND Preventive Medicine Undersea and Hyperbaric Medicine
DX: L97.514 Non-pressure chronic ulcer of other part of right foot with necrosis of bone (principal); M86.371 Chronic multifocal osteomyelitis, right ankle and foot

== ENCOUNTER → 2017-09-24 | Outpatient (CLI) | payer MEDICARE, MEDICAID ==
[2017-09-24 14:59] LABS: HEMATOCRIT 49.1 % (37.9-51.0); HEMOGLOBIN 16.3 g/dL (13.5-17.0); MEAN CORPUSCULAR HEMOGLOBIN 30.8 pg (27.0-33.4); MEAN CORPUSCULAR HGB CONC 33.2 g/dL (32.0-36.0); MEAN CORPUSCULAR VOLUME 93 fl (80-97); PLATELET COUNT 255 10^3/uL (150-450); RED BLOOD COUNT 5.28 10^6/uL (4.35-5.55); RED CELL DISTRIBUTION WIDTH 14.8 % (11.5-14.0); WHITE BLOOD COUNT 11.3 10^3/uL (4.0-10.5)
[2017-09-24 15:02] LABS: INTERNATIONAL RATION (INR) 3.11; PROTHROMBIN TIME 33.5 SEC (11.4-15.4)
[2017-09-24 15:25] LABS: ANION GAP 13 (5-19); BLOOD UREA NITROGEN 21 mg/dL (7-20); CALCIUM 9.9 mg/dL (8.4-10.2); CARBON DIOXIDE 29 mmol/L (22-30); CHLORIDE 102 mmol/L (98-107); GLUCOSE 82 mg/dL (75-110); POTASSIUM 4.4 mmol/L (3.6-5.0); SODIUM 143.8 mmol/L (137-145)
== END ==
LOC: OD 14:12
PROVIDERS: ATTEND Internal Medicine Nephrology
DX: I12.9 Hypertensive chronic kidney disease with stage 1 through stage 4 chronic kidney disease, or unspecified chronic kidney disease (principal); N18.3 Chronic kidney disease, stage 3 (moderate); R80.9 Proteinuria, unspecified; I48.2 Chronic atrial fibrillation; Z79.01 Long term (current) use of anticoagulants
CPT/HCPCS: 36415; 80048; 85027; 85610

== ENCOUNTER → 2017-10-14 | Outpatient (CLI) | payer MEDICARE, MEDICAID ==
[2017-10-14 16:22] LABS: ABSOLUTE EOSINOPHILS # (AUTO) 0.1 10^3/uL (0.0-0.6); ABSOLUTE LYMPHOCYTES (AUTO) 2.6 10^3/uL (0.5-4.7); ABSOLUTE MONOCYTES (AUTO) 1.2 10^3/uL (0.1-1.4); ABSOLUTE NEUT (AUTO) 7.4 10^3/uL (1.7-8.2); BASOPHILS % (AUTO) 0.4 % (0-2); EOSINOPHILS % (AUTO) 0.9 % (0-6); HEMATOCRIT 48.9 % (37.9-51.0); HEMOGLOBIN 16.4 g/dL (13.5-17.0); LYMPHOCYTES % (AUTO) 23.1 % (13-45); MEAN CORPUSCULAR HEMOGLOBIN 31.3 pg (27.0-33.4); MEAN CORPUSCULAR HGB CONC 33.4 g/dL (32.0-36.0); MEAN CORPUSCULAR VOLUME 94 fl (80-97); MONOCYTES % (AUTO) 10.7 % (3-13); PLATELET COUNT 337 10^3/uL (150-450); RED BLOOD COUNT 5.23 10^6/uL (4.35-5.55); RED CELL DISTRIBUTION WIDTH 14.6 % (11.5-14.0); SEGMENTED NEUTROPHILS % (AUTO) 64.9 % (42-78); TOTAL CELLS COUNTED % (AUTO) 100 %; WHITE BLOOD COUNT 11.5 10^3/uL (4.0-10.5)
[2017-10-14 16:38] LABS: ALANINE AMINOTRANSFERASE 23 U/L (21-72); ALKALINE PHOSPHATASE 65 U/L (38-126); ANION GAP 7 (5-19); ASPARTATE AMINO TRANSFERASE 25 U/L (17-59); BILIRUBIN,DIRECT 0.4 mg/dL (0.0-0.4); BILIRUBIN,TOTAL 0.5 mg/dL (0.2-1.3); BLOOD UREA NITROGEN 18 mg/dL (7-20); C-REACTIVE PROTEIN 17.9 mg/L (<10.0); CALCIUM 9.3 mg/dL (8.4-10.2); CARBON DIOXIDE 29 mmol/L (22-30); CHLORIDE 108 mmol/L (98-107); GLUCOSE 82 mg/dL (75-110); POTASSIUM 4.4 mmol/L (3.6-5.0); SODIUM 144.3 mmol/L (137-145); TOTAL PROTEIN 7.1 g/dL (6.3-8.2)
--- NOTE | 2017-10-14 16:38 | RADIOLOGY REPORT (SQ) ---
EXAM DESCRIPTION: FOOT LEFT COMPLETE COMPLETED DATE/TIME: 10/14/2017 4:21 pm REASON FOR STUDY: NON-PRESSURE CHRONIC ULCER FAT LAYER EXPOSED L97.522 NON-PRS CHRONIC ULCER OTH MO T LEFT FOOT W FAT LAYER COMPARISON: 07/08/2016. NUMBER OF VIEWS: Three views. TECHNIQUE: AP, lateral and oblique without weight bearing radiographic images acquired of the left f oot. LIMITATIONS: None. FINDINGS: MINERALIZATION: Normal. BONES: Stable chronic changes in the 4th and 5th toe. No acute fracture or dislocation. No worrisome bone lesions. No significant osteophytes. JOINTS: No erosions. No alexandra-articular osteopenia. No chondrocalcinosis. SOFT TISSUES: No swelling. No calcifications. OTHER: No other significant finding. IMPRESSION: STABLE CHRONIC CHANGES IN THE 4TH AND 5TH TOE. OTHERWISE NO ACUTE OR SIGNIFICANT FINDIN GS. TECHNICAL DOCUMENTATION: JOB ID: [id number] [employer]- All Rights Reserved Reading location - IP/workstation name: [email or web address]
[2017-10-14 16:59] LABS: ERYTHROCYTE SEDIMENTATION RATE 20 mm/hr (0-20)
== END ==
LOC: WC 15:23
PROVIDERS: ATTEND Preventive Medicine Undersea and Hyperbaric Medicine
DX: L97.522 Non-pressure chronic ulcer of other part of left foot with fat layer exposed (principal)
CPT/HCPCS: 36415; 80053; 85025; 85652; 86140

== ENCOUNTER → 2017-10-14 | Outpatient (CLI) | payer MEDICARE, MEDICAID ==
[2017-10-14 16:30] LABS: INTERNATIONAL RATION (INR) 3.31; PROTHROMBIN TIME 35.2 SEC (11.4-15.4)
[2017-10-14 16:44] LABS: ALANINE AMINOTRANSFERASE 23 U/L (21-72); ALKALINE PHOSPHATASE 65 U/L (38-126); ASPARTATE AMINO TRANSFERASE 25 U/L (17-59); BILIRUBIN,DIRECT 0.4 mg/dL (0.0-0.4); BILIRUBIN,TOTAL 0.5 mg/dL (0.2-1.3); TOTAL PROTEIN 7.1 g/dL (6.3-8.2)
[2017-10-14 16:52] LABS: CHOLESTEROL 142.54 mg/dL (0-200); TRIGLYCERIDES 193 mg/dL (<150)
[2017-10-14 17:03] LABS: DIRECT LDL 69 mg/dL (<100)
[2017-10-14 17:15] LABS: VLDL CHOLESTEROL 38.6 mg/dL (10-31)
== END ==
LOC: OD 15:18
PROVIDERS: ATTEND Specialist
DX: I25.10 Atherosclerotic heart disease of native coronary artery without angina pectoris (principal); I12.9 Hypertensive chronic kidney disease with stage 1 through stage 4 chronic kidney disease, or unspecified chronic kidney disease; N18.3 Chronic kidney disease, stage 3 (moderate); E78.5 Hyperlipidemia, unspecified; I48.2 Chronic atrial fibrillation; Z79.01 Long term (current) use of anticoagulants; I73.9 Peripheral vascular disease, unspecified; G45.9 Transient cerebral ischemic attack, unspecified; F17.210 Nicotine dependence, cigarettes, uncomplicated; R01.1 Cardiac murmur, unspecified; R06.00 Dyspnea, unspecified; Z79.899 Other long term (current) drug therapy
CPT/HCPCS: 36415; 80061; 80076; 85610

== ENCOUNTER → 2017-12-25 | Outpatient (CLI) | payer MEDICARE, MEDICAID ==
[2017-12-25 13:29] LABS: INTERNATIONAL RATION (INR) 2.21; PROTHROMBIN TIME 25.6 SEC (11.4-15.4)
== END ==
LOC: OD 12:35
PROVIDERS: ATTEND Specialist
DX: Z79.01 Long term (current) use of anticoagulants (principal); Z79.899 Other long term (current) drug therapy; I25.10 Atherosclerotic heart disease of native coronary artery without angina pectoris; I25.2 Old myocardial infarction; I48.2 Chronic atrial fibrillation; I73.9 Peripheral vascular disease, unspecified; G45.9 Transient cerebral ischemic attack, unspecified; E78.5 Hyperlipidemia, unspecified; F17.210 Nicotine dependence, cigarettes, uncomplicated; R01.1 Cardiac murmur, unspecified; I12.9 Hypertensive chronic kidney disease with stage 1 through stage 4 chronic kidney disease, or unspecified chronic kidney disease; N18.3 Chronic kidney disease, stage 3 (moderate)
CPT/HCPCS: 36415; 85610

== ENCOUNTER → 2018-02-10 | Outpatient (CLI) | payer MEDICARE, MEDICAID ==
[2018-02-10 16:43] LABS: INTERNATIONAL RATION (INR) 3.07; PROTHROMBIN TIME 33.1 SEC (11.4-15.4)
== END ==
LOC: OD 15:17
PROVIDERS: ATTEND Specialist
DX: I48.2 Chronic atrial fibrillation (principal); Z79.01 Long term (current) use of anticoagulants
CPT/HCPCS: 36415; 85610

== ENCOUNTER → 2018-02-27 | Outpatient (CLI) | payer MEDICARE, MEDICAID ==
[2018-02-27 12:24] LABS: HEMATOCRIT 41.7 % (37.9-51.0); MEAN CORPUSCULAR HEMOGLOBIN 32.5 pg (27.0-33.4); MEAN CORPUSCULAR HGB CONC 33.6 g/dL (32.0-36.0); MEAN CORPUSCULAR VOLUME 97 fl (80-97); PLATELET COUNT 268 10^3/uL (150-450); RED BLOOD COUNT 4.31 10^6/uL (4.35-5.55); RED CELL DISTRIBUTION WIDTH 15.3 % (11.5-14.0); WHITE BLOOD COUNT 12.3 10^3/uL (4.0-10.5)
[2018-02-27 12:28] LABS: INTERNATIONAL RATION (INR) 2.32; PROTHROMBIN TIME 26.6 SEC (11.4-15.4)
[2018-02-27 12:45] LABS: ANION GAP 9 (5-19); BLOOD UREA NITROGEN 21 mg/dL (7-20); CALCIUM 9.3 mg/dL (8.4-10.2); CARBON DIOXIDE 30 mmol/L (22-30); CHLORIDE 101 mmol/L (98-107); GLUCOSE 92 mg/dL (75-110); POTASSIUM 4.3 mmol/L (3.6-5.0); SODIUM 139.8 mmol/L (137-145)
== END ==
LOC: OD 11:07
PROVIDERS: ATTEND Specialist
DX: I25.10 Atherosclerotic heart disease of native coronary artery without angina pectoris (principal); I25.2 Old myocardial infarction; I48.2 Chronic atrial fibrillation; I12.9 Hypertensive chronic kidney disease with stage 1 through stage 4 chronic kidney disease, or unspecified chronic kidney disease; N18.3 Chronic kidney disease, stage 3 (moderate); R80.9 Proteinuria, unspecified; Z79.01 Long term (current) use of anticoagulants; I73.9 Peripheral vascular disease, unspecified; G45.9 Transient cerebral ischemic attack, unspecified; E78.5 Hyperlipidemia, unspecified; F17.210 Nicotine dependence, cigarettes, uncomplicated; R01.1 Cardiac murmur, unspecified; R06.00 Dyspnea, unspecified; Z79.899 Other long term (current) drug therapy
CPT/HCPCS: 36415; 80048; 85027; 85610

== ENCOUNTER 2018-04-20 15:33 | Emergency (ER) | payer MEDICARE, MEDICAID ==
[2018-04-20] MEDS ORDERED: CEFTRIAXONE 1 GM/D5W RTU 1 GM/50 ML RTUPB IV ONE (16:00)
--- NOTE | 2018-04-20 16:02 | ER Document Report ---
ED Medical Screen (RME) - General Chief Complaint: Skin Sore(s) Stated Complaint: FOOT PAIN Time Seen by Provider: 04/20/18 15:43 TRAVEL OUTSIDE OF THE [place] IN LAST 30 DAYS: No - HPI Notes: 04/20/18 16:00 Patient with a history of peripheral vascular disease coming in for possible foot infection bilaterally - Related Data Allergies/Adverse Reactions: No Known Allergies Allergy (Verified 04/20/18 15:33) Past Medical History - Past Medical History Cardiac Medical History: Reports: Hx Coronary Artery Disease, Hx Heart Attack, Hx Hypertension Pulmonary Medical History: Denies: Hx Asthma, Hx Bronchitis, Hx COPD, Hx Pneumonia Neurological Medical History: Denies: Hx Cerebrovascular Accident, Hx Seizures Renal/ Medical History: Denies: Hx Peritoneal Dialysis Musculoskeltal Medical History: Reports Hx Arthritis - Immunizations Hx Diphtheria, Pertussis, Tetanus Vaccination: No Review of Systems - Review of Systems Skin: Other - Feet infection Physical Exam - Vital signs Vitals: Temp Pulse Resp BP Pulse Ox 97.9 F 73 16 163/85 H 97 04/20/18 15:36 04/20/18 15:36 04/20/18 15:36 04/20/18 15:36 04/20/18 15:36 - Notes Notes: Bilateral feet left one third digit with dry gangrene of the tip with redness redness on the dorsum of the right Course - Vital Signs Vital signs: Temp Pulse Resp BP Pulse Ox 97.9 F 73 16 163/85 H 97 04/20/18 15:36 04/20/18 15:36 04/20/18 15:36 04/20/18 15:36 04/20/18 15:36 Doctor's Discharge - Discharge Referrals: ISAC DIAZ MD [Primary Care Provider] - Follow up as needed
--- NOTE | 2018-04-20 16:25 | RADIOLOGY REPORT (SQ) ---
EXAM DESCRIPTION: FOOT BILATERAL 3 VIEWS COMPLETED DATE/TIME: 04/20/2018 4:10 pm REASON FOR STUDY: foot infection blisters on the bilateral 2nd and 3rd toes on both the, evaluate fo r toe osteomyelitis COMPARISON: None. NUMBER OF VIEWS: Three views. TECHNIQUE: AP, lateral and oblique radiographic images acquired of the right and left foot. LIMITATIONS: None. FINDINGS: RIGHT FOOT: MINERALIZATION: Normal. BONES: No aggressive demineralization worrisome for active osteomyelitis. Post resection of the dist al half, 4th metatarsal. JOINTS: No effusions. SOFT TISSUES: Mild diffuse forefoot soft tissue swelling. No foreign body. OTHER: No other significant finding. LEFT FOOT: MINERALIZATION: Normal. BONES: No aggressive demineralization worrisome for active osteomyelitis. Post resection of the dist al half, 4th and 5th metatarsals. Chronic resorption of the 3rd toe distal phalanx tuft. JOINTS: No effusions. SOFT TISSUES: Mild forefoot soft tissue swelling. No foreign body. OTHER: No other significant finding. IMPRESSION: No acute bony findings TECHNICAL DOCUMENTATION: JOB ID: [id number] [employer]- All Rights Reserved Reading location - IP/workstation name: [email or web address]
[2018-04-20 16:33] LABS: ABSOLUTE BASOPHILS # (AUTO) 0.1 10^3/uL (0.0-0.2); ABSOLUTE EOSINOPHILS # (AUTO) 0.1 10^3/uL (0.0-0.6); ABSOLUTE LYMPHOCYTES (AUTO) 2.5 10^3/uL (0.5-4.7); ABSOLUTE NEUT (AUTO) 7.9 10^3/uL (1.7-8.2); BASOPHILS % (AUTO) 0.6 % (0-2); EOSINOPHILS % (AUTO) 0.8 % (0-6); HEMATOCRIT 47.5 % (37.9-51.0); HEMOGLOBIN 15.9 g/dL (13.5-17.0); LYMPHOCYTES % (AUTO) 21.4 % (13-45); MEAN CORPUSCULAR HEMOGLOBIN 31.9 pg (27.0-33.4); MEAN CORPUSCULAR HGB CONC 33.5 g/dL (32.0-36.0); MEAN CORPUSCULAR VOLUME 95 fl (80-97); MONOCYTES % (AUTO) 8.7 % (3-13); PLATELET COUNT 281 10^3/uL (150-450); RED BLOOD COUNT 4.98 10^6/uL (4.35-5.55); RED CELL DISTRIBUTION WIDTH 13.7 % (11.5-14.0); SEGMENTED NEUTROPHILS % (AUTO) 68.5 % (42-78); TOTAL CELLS COUNTED % (AUTO) 100 %; WHITE BLOOD COUNT 11.5 10^3/uL (4.0-10.5)
[2018-04-20 16:40] LABS: INTERNATIONAL RATION (INR) 1.92; PROTHROMBIN TIME 22.9 SEC (11.4-15.4)
[2018-04-20 16:41] LABS: PARTIAL THROMBOPLASTIN TIME 54.8 SEC (23.5-35.8)
[2018-04-20 16:55] LABS: ANION GAP 16 (5-19); BLOOD UREA NITROGEN 16 mg/dL (7-20); CALCIUM 9.6 mg/dL (8.4-10.2); CARBON DIOXIDE 27 mmol/L (22-30); CHLORIDE 101 mmol/L (98-107); GLUCOSE 103 mg/dL (75-110); POTASSIUM 3.9 mmol/L (3.6-5.0); SODIUM 143.6 mmol/L (137-145)
[2018-04-20] MEDS ORDERED: SULFAMETHOXAZOLE/TRIMETHOPRIM 800-160 MG TABLET PO ONE (19:33)
[2018-04-20] MEDS ORDERED: BACITRACIN ZINC OINTMENT 15 GM TP ONE (19:34)
--- NOTE | 2018-04-20 19:37 | ER Document Report ---
ED Skin Rash/Insect Bite/Abscs - General Chief Complaint: Skin Sore(s) Stated Complaint: FOOT PAIN Time Seen by Provider: 04/20/18 15:43 Notes: This is a 62-year-old male with known vascular disease status post bilateral lower extremity grafting presents to the emergency department for evaluation of blisters and possible cellulitis on bilateral feet. Patient states that he has been putting some Gold[employer] powder on his feet. Followed by local competitive intelligence analyst. Was unable to get seen today. Patient has had multiple osteomyelitis infections to the feet. Decided to come in and get checked out. The feet have been swollen but appear to be getting better in his opinion. The toenail on the third digit of the left foot fell off yesterday. TRAVEL OUTSIDE OF THE [place] IN LAST 30 DAYS: No - HPI Patient complains to provider of: Skin rash/lesion, Tender/swollen area Quality of pain: Achy Severity: Mild Pain Level: 1 Skin Character: Drainage, Erythema, Swelling, Tenderness Skin Temperature: Warm Quality of rash: Burning Identify cause: No - Related Data Allergies/Adverse Reactions: No Known Allergies Allergy (Verified 04/20/18 15:33) Past Medical History - General Information source: Patient - Social History Smoking Status: Never Smoker Frequency of alcohol use: None Drug Abuse: None Lives with: Alone Family History: Reviewed & Not Pertinent Patient has suicidal ideation: No Patient has homicidal ideation: No - Past Medical History Cardiac Medical History: Reports: Hx Coronary Artery Disease, Hx Heart Attack, Hx Hypertension Pulmonary Medical History: Denies: Hx Asthma, Hx Bronchitis, Hx COPD, Hx Pneumonia Neurological Medical History: Denies: Hx Cerebrovascular Accident, Hx Seizures Renal/ Medical History: Denies: Hx Peritoneal Dialysis Musculoskeletal Medical History: Reports Hx Arthritis - Immunizations Hx Diphtheria, Pertussis, Tetanus Vaccination: No Hx Pneumococcal Vaccination: 02/20/13 Review of Systems - Review of Systems Notes: Constitutional: denies: Chills, Diaphoresis, Fever, Malaise, Weakness EENT: denies: Eye discharge, Blurred vision, Tearing, Double vision, Nose congestion, Nose discharge, Throat swelling, Mouth pain Cardiovascular: denies: Palpitations, Heart racing, Orthopnea, Dyspnea, Chest pain Respiratory: denies: Cough, Hurts to breathe, Wheezing, Shortness of breath Gastrointestinal: denies: Abdominal pain, Diarrhea, Nausea, Vomiting, Black stools, bright red blood in stool Genitourinary: denies: Burning, Dysuria, Discharge, Frequency, Flank pain, Hematuria Musculoskeletal: denies: Joint pain, Joint swelling, Muscle pain, Muscle stiffness, back pain Hematologic/Lymphatic: denies: Anemia, Easy bleeding, Easy bruising, Blood clots Neurological/Psychological: denies: Confusion, Dementia, Depression, Loss of consciousness Skin: Patient complaining of cellulitis, redness and blisters to the bilateral feet and toes. Physical Exam - Vital signs Vitals: Temp Pulse Resp BP Pulse Ox 97.9 F 73 16 163/85 H 97 04/20/18 15:36 04/20/18 15:36 04/20/18 15:36 04/20/18 15:36 04/20/18 15:36 Interpretation: Normal - General General appearance: Appears well, Alert - HEENT Head: Normocephalic, Atraumatic Eyes: Normal Pupils: PERRL - Respiratory Respiratory status: No respiratory distress Chest status: Nontender Breath sounds: Normal Chest palpation: Normal - Cardiovascular Rhythm: Regular Heart sounds: Normal auscultation Murmur: No - Abdominal Inspection: Normal Distension: No distension Bowel sounds: Normal Tenderness: Nontender Organomegaly: No organomegaly - Back Back: Normal, Nontender - Extremities General upper extremity: Normal inspection, Nontender, Normal color, Normal ROM , Normal temperature General lower extremity: Other - Patient has sloughing of the skin on the dorsum of both feet distally at the digits. The left foot appears to have a toenail missing on the third digit with darkening noted to the distal aspect of the third digit of the left foot. The right foot has blisters on the bottom of all toes but no signs of necrosis. There is some redness and erythema on the tops of both feet. The pulse is bounding on the left dorsalis pedis. There is a dopplerable pulse on the right dorsalis pedis.. No: Naresh's sign - Neurological Neuro grossly intact: Yes Cognition: Normal Orientation: AAOx4 Naseem Coma Scale Eye Opening: Spontaneous [place] Coma Scale Verbal: Oriented Naseem Coma Scale Motor: Obeys Commands Naseem Coma Scale Total: 15 Speech: Normal Motor strength normal: LUE, RUE, LLE, RLE Sensory: Normal - Psychological Associated symptoms: Normal affect, Normal mood - Skin Skin Temperature: Warm Skin Moisture: Dry Skin Color: Other - Redness, blistering and erythema noted to the toes bilaterally Course - Re-evaluation Re-evalutation: 04/20/18 21:43 Patient has a slightly elevated WBC count. No evidence of osteomyelitis seen on x-ray. A arterial study was done bilaterally which demonstrates patency of both grafts. There is a monophasic flow to the right lower extremity but this appears to be at his baseline. The feet are warm. There is some concern for infection. Unknown etiology. No signs of mild osteomyelitis at this time. Offered admission to the patient and highly advised that he needed to be admitted however the patient did not want to be admitted at this time. Patient only wants oral antibiotics. I have advised that this will unlikely cure his current condition but he would like for me to try it at this time. I have expressed my concerns and patient will be leaving at this time with oral antibiotics. An initial dose of Bactrim p.o. was given as well as an initial dose of IV Rocephin given. I have advised him to follow-up with his competitive intelligence analyst to return tomorrow for repeat evaluation. - Vital Signs Vital signs: Temp Pulse Resp BP Pulse Ox 98.0 F 89 18 189/87 H 100 04/20/18 20:16 04/20/18 20:16 04/20/18 20:16 04/20/18 20:16 04/20/18 20:16 - Laboratory Result Diagrams: 04/20/18 16:20 04/20/18 16:20 Laboratory results interpreted by me: 04/20/18 04/20/18 16:20 16:20 WBC 11.5 H PT 22.9 H APTT 54.8 H Discharge - Discharge Clinical Impression: Cellulitis of both feet Condition: Good Disposition: HOME, SELF-CARE Instructions: Cellulitis ([facility]) Additional Instructions: Please follow-up with your doctor tomorrow to have these reevaluated. Take all medications as prescribed. In the event that redness is getting worse he should return immediately. Prescriptions: Cefdinir [Omnicef 300 mg Capsule] 1 cap PO BID 10 Days #20 capsule Mupirocin [Bactroban 2% Ointment 22 gm] 1 applic TP BID 10 Days #1 tube Sulfamethoxazole/Trimethoprim [Bactrim Ds Tablet] 1 each PO BID 10 Days #20 tablet Referrals: NILE ORO DPM [ACTIVE STAFF] - Follow up tomorrow
[2018-04-20 20:17] VITALS: BP 189/87
--- NOTE | 2018-04-21 13:35 | XCELERA REPORT ---
[address] [address] Lower Extremity Arterial Evaluation Name: FRANCIE RUVALCABA Age: 62 yrs Gender: Male : 1955 Patient Status: Emergency Patient Location: ER Study Date: 04/20/2018 07:08 PM Procedure: A color flow and duplex scan of the lower extremity arteries was performed bilaterally with velocity and waveform anaylsis. 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 Biphasic with step up in velocity at the Femoral. Normal velocity and biphasic in the Popliteal. Monophasic, low normal velocity in the infrageniculate vessels . Ankle Brachial index not done. Left Side Arterial Evaluation Normal velocity and triphasic waveforms noted from the Common Femoral To Popliteal. Monophasic, low normal velocity in the Posterior Tibial. Biphasic with step up in velocity at the Dorsalis Pedis. Anterior Tibial, not well seen. Ankle Brachial index not done. Critical Findings Discussed with Dr Joshua. Interpretation Summary Severe hemodynamically significant lesions in the right lower extremity only, on duplex imaging, at rest. Moderate hemodynamically significant lesions in the left lower extremity only, on duplex imaging, at rest. Complex pattern of disease, possible graft on left. Not fully elucidated. : GRISELDA JOSHUA > Ronnie Ryan
== END 2018-04-20 20:18 | disposition home or self-care (01) ==
LOC: ER 15:33
DX: L03.116 Cellulitis of left lower limb (principal); L03.115 Cellulitis of right lower limb; I25.10 Atherosclerotic heart disease of native coronary artery without angina pectoris; I25.2 Old myocardial infarction; I10 Essential (primary) hypertension
CPT/HCPCS: 99284; 96365; 36415; 87040; 85025; 85610; 85730; 80048; 93925 ×2; 73630; A9270; J0696; J3490

== ENCOUNTER 2018-05-14 13:24 | Inpatient (IN) | payer MEDICARE, MEDICAID ==
[2018-05-14 14:13] LABS: ABSOLUTE MONOCYTES (AUTO) 0.5 10^3/uL (0.1-1.4); ABSOLUTE NEUT (AUTO) 7.4 10^3/uL (1.7-8.2); BASOPHILS % (AUTO) 0.4 % (0-2); EOSINOPHILS % (AUTO) 0.3 % (0-6); HEMATOCRIT 37.9 % (37.9-51.0); HEMOGLOBIN 12.5 g/dL (13.5-17.0); LYMPHOCYTES % (AUTO) 10.9 % (13-45); MEAN CORPUSCULAR HEMOGLOBIN 31.5 pg (27.0-33.4); MEAN CORPUSCULAR VOLUME 96 fl (80-97); MONOCYTES % (AUTO) 5.7 % (3-13); PLATELET COUNT 258 10^3/uL (150-450); RED BLOOD COUNT 3.96 10^6/uL (4.35-5.55); RED CELL DISTRIBUTION WIDTH 14.6 % (11.5-14.0); SEGMENTED NEUTROPHILS % (AUTO) 82.7 % (42-78); TOTAL CELLS COUNTED % (AUTO) 100 %; WHITE BLOOD COUNT 8.9 10^3/uL (4.0-10.5)
--- NOTE | 2018-05-14 14:14 | ER Document Report ---
ED General - General Chief Complaint: Low Blood Pressure Stated Complaint: BLOOD PRESSURE ISSUE Time Seen by Provider: 05/14/18 13:47 Notes: Patient is here because his blood pressure is low. He is feeling somewhat lightheaded and dizzy. Went to a scheduled appointment at the wound care clinic this morning and they found his blood pressure was low and referred him here. EMS obtained a blood pressure of 92/60, and without any interventions, it went up to 111/73. Patient has severe hypertension and is on metoprolol 100 mg twice a day, hydralazine 100 mg twice a day, lisinopril 40 mg twice daily, and amlodipine 5 mg daily. He has not had any recent changes in his blood pressure medicines. Patient says he was sick about a week ago with some nausea but no vomiting. Had explosive diarrhea, however, he does have chronic diarrhea and is on loperamide. Denies any chest pains. Has a history of atrial fibrillation and is on Coumadin.. Patient has not had any fever. No significant infections anywhere, although he is has both feet under wound care visits twice a week. Patient had recent surgery on his toes by local project manager retail, Dr. Domingo, and has been taking cephalosporin and sulfa antibiotics orally. TRAVEL OUTSIDE OF THE [place] IN LAST 30 DAYS: No - Related Data Allergies/Adverse Reactions: No Known Allergies Allergy (Verified 05/14/18 17:20) Past Medical History - Social History Smoking Status: Never Smoker Chew tobacco use (# tins/day): No Frequency of alcohol use: None Drug Abuse: None Family History: Reviewed & Not Pertinent Patient has suicidal ideation: No Patient has homicidal ideation: No - Past Medical History Cardiac Medical History: Reports: Hx Atrial Fibrillation, Hx Coronary Artery Disease, Hx Heart Attack, Hx Hypertension, Hx Peripheral Vascular Disease Musculoskeletal Medical History: Reports Hx Arthritis - Immunizations Hx Diphtheria, Pertussis, Tetanus Vaccination: No Hx Pneumococcal Vaccination: 02/20/13 Review of Systems - Review of Systems Notes: REVIEW OF SYSTEMS: CONSTITUTIONAL : Denies fever. EENT: Denies eye, ear, nose or mouth or throat pain or other symptoms. CARDIOVASCULAR: Denies chest pain. Patient has severe peripheral vascular disease. Has had surgery of both lower extremities. He has some necrotic tip to the middle toe of the left foot. RESPIRATORY: Denies cough, chest congestion, or shortness of breath. GASTROINTESTINAL: See HPI. GENITOURINARY: Denies difficulty or painful urinating, urinary frequency, blood in urine. Has a history of kidney problems and is seen Dr. Castro Miller. MUSCULOSKELETAL: Denies back or neck pain. Denies joint pain or swelling. SKIN: Denies rash or skin lesions. NEUROLOGICAL: Denies LOC or altered mental status. Denies headache. Denies sensory loss or motor deficits. ALL OTHER SYSTEMS REVIEWED AND NEGATIVE. Physical Exam - Vital signs Vitals: Temp Resp BP Pulse Ox 98.2 F 14 106/68 99 05/14/18 13:32 05/14/18 13:32 05/14/18 13:32 05/14/18 13:32 Interpretation: Normal Notes: PHYSICAL EXAMINATION: GENERAL: Well-appearing, in no acute distress. Blood pressure low for this patient. HEAD: Atraumatic, normocephalic. EYES: Pupils equal round and reactive to light, extraocular movements intact. ENT: oropharynx clear without exudates. Moist mucous membranes. NECK: Normal range of motion, supple. LUNGS: Breath sounds clear and equal bilaterally. HEART: Irregularly irregular rate and rhythm without murmurs. ABDOMEN: Soft, nontender. No guarding or rebound. No masses. BACK: No tenderness throughout entire back. EXTREMITIES: Normal range of motion without pain. Scars from previous vascular surgery of the lower legs bilaterally. Both feet are bandaged from the wound care center. We remove the bandages revealing some small areas of redness around a couple of toes, but nothing that would suggest a significant infection or sepsis. The left middle toe has a bandage on it its stuck on it and probably has a necrotic tip to that toe. NEUROLOGICAL: Normal speech, normal gait. Normal sensory, motor, and reflex exams. Awake, alert, and oriented x3. Cranial nerves normal. PSYCH: Normal mood, normal affect. SKIN: Warm, dry, no rashes. Course - Re-evaluation Re-evalutation: 05/14/18 16:14 Patient's lab work revealed significant increase in creatinine and BUN since a previous chemistry April 20. His creatinine is now 3.47 and BUN of 52. Additionally, patient's pro time is greater than 130 and the INR cannot be calculated. Most likely this is result of the fact the patient is on 2 very common antibiotics for warfarin coagulopathies. Patient is receiving his first dose of vitamin K p.o. here in the emergency department. He has had a bag of saline. Blood pressure has improved. I talked to the hospitalist who will admit him to the hospital. - Vital Signs Vital signs: Temp Pulse Resp BP Pulse Ox 98.2 F 75 12 91/56 L 99 05/14/18 18:28 05/14/18 18:28 05/14/18 18:28 05/14/18 18:28 05/14/18 18:28 - Laboratory Result Diagrams: 05/14/18 13:45 05/14/18 13:45 Laboratory results interpreted by me: 05/14/18 05/14/18 05/14/18 13:45 13:45 14:48 RBC 3.96 L Hgb 12.5 L RDW 14.6 H Seg Neutrophils % 82.7 H Lymphocytes % 10.9 L PT > 120.0 H* Potassium 5.1 H Carbon Dioxide 21 L BUN 52 H Creatinine 3.47 H Est GFR ( Amer) 22 L Est GFR (Non-Af Amer) 18 L ALT 17 L - Diagnostic Test Radiology results interpreted by me: 05/14/18 16:18 Chest x-ray is unremarkable. X-ray of the foot does not show any evidence of osteomyelitis. - EKG Interpretation by Me Rate: Normal Rhythm: A.Fib [place]/QRS: RBBB Discharge - Discharge Clinical Impression: Over-anticoagulated, Acute renal injury due to circulatory failure, Peripheral vascular disease Condition: Stable Disposition: ADMITTED OBSERVATION Admitting Provider: Hospitalist Unit Admitted: Medical Floor
--- NOTE | 2018-05-14 14:26 | RADIOLOGY REPORT (SQ) ---
EXAM DESCRIPTION: CHEST SINGLE VIEW COMPLETED DATE/TIME: 05/14/2018 2:05 pm REASON FOR STUDY: short of breath COMPARISON: 06/13/2017. EXAM PARAMETERS: NUMBER OF VIEWS: One view. TECHNIQUE: Single frontal radiographic view of the chest acquired. RADIATION DOSE: NA LIMITATIONS: None. FINDINGS: LUNGS AND PLEURA: No opacities, masses or pneumothorax. No pleural effusion. MEDIASTINUM AND HILAR STRUCTURES: No masses. Contour normal. HEART AND VASCULAR STRUCTURES: Heart upper limits of normal in size. Normal vasculature. BONES: No acute findings. HARDWARE: None in the chest. OTHER: No other significant finding. IMPRESSION: NO ACUTE RADIOGRAPHIC FINDING IN THE CHEST. TECHNICAL DOCUMENTATION: JOB ID: [id number] [employer]- All Rights Reserved Reading location - IP/workstation name: [email or web address]
[2018-05-14 14:33] LABS: ALANINE AMINOTRANSFERASE 17 U/L (21-72); ALBUMIN 3.8 g/dL (3.5-5.0); ALKALINE PHOSPHATASE 56 U/L (38-126); ANION GAP 12 (5-19); ASPARTATE AMINO TRANSFERASE 28 U/L (17-59); BILIRUBIN,DIRECT 0.2 mg/dL (0.0-0.4); BILIRUBIN,TOTAL 0.2 mg/dL (0.2-1.3); BLOOD UREA NITROGEN 52 mg/dL (7-20); CALCIUM 8.8 mg/dL (8.4-10.2); CARBON DIOXIDE 21 mmol/L (22-30); CHLORIDE 106 mmol/L (98-107); GLUCOSE 105 mg/dL (75-110); POTASSIUM 5.1 mmol/L (3.6-5.0); SODIUM 139.4 mmol/L (137-145); TOTAL PROTEIN 6.5 g/dL (6.3-8.2)
[2018-05-14] MEDS ORDERED: NORMAL SALINE 1000 ML 1,000 ML IV ONE (14:57)
[2018-05-14] MEDS ORDERED: MUPIROCIN 2% OINTMENT 22 GM TP ONE (15:15)
[2018-05-14 15:30] LABS: PROTHROMBIN TIME > 120.0 SEC (11.4-15.4)
[2018-05-14] MEDS ORDERED: PHYTONADIONE 5 MG TABLET PO ONE (16:03)
[2018-05-14] MEDS ORDERED: ACETAMINOPHEN 325 MG TABLET PO PRN (17:30)
[2018-05-14] MEDS ORDERED: METOPROLOL SUCCINATE PO SCH (18:00)
[2018-05-14] MEDS ORDERED: NICOTINE 7 MG/24 HR PATCH.TD24 TD PRN (18:28)
--- NOTE | 2018-05-14 18:28 | PDOC H&P ---
History of Present Illness Admission Date/PCP: 05/14/18 16:26 RIMA REIS DO Patient complains of: Hypotension History of Present Illness: FRANCIE RUVALCABA is a 62 year old male who is a chronic kidney patient of Dr. Miller and wound care patient of Dr. Domingo. He has underlying chronic atrial fibrillation, chronic kidney failure, hypertension and peripheral vascular disease. He went to the wound care center for a routine follow-up appointment today and prior to the appointment while taking his vital signs he was found to have a systolic pressure less than 100. The office directed him to go to the emergency department. The patient reports that he felt that his blood pressure might have been a little low but did not think it was going to be as low as the measured pressure. During the evaluation in the emergency department blood work revealed that his INR was above the detectable limit. This is likely from antibiotics given for his feet. The patient is on multiple antihypertensive medications and we will need to judiciously adjust them. In addition we need to evaluate the absolute need for antibiotics or not. His renal function certainly took a hit. He states that he had profuse diarrhea approximately 1 week ago and believes that it was volume depletion that may have started this. He will be admitted to the hospital and given fluids and adjust medications for his blood pressure. He was given vitamin K for the markedly elevated INR. We will continue to monitor his labs. I have asked Dr. Domingo to see the patient tomorrow regarding his feet and have asked Dr. Rodgers, who is covering for Dr. Miller, to review the patient tomorrow as well. Past Medical History Cardiac Medical History: Reports: Atrial Fibrillation, Coronary Artery Disease, Myocardial Infarction, Hypertension, Peripheral Vascular Disease Pulmonary Medical History: Denies: Asthma, Bronchitis, Chronic Obstructive Pulmonary Disease (COPD), Pneumonia Neurological Medical History: Denies: Seizures Musculoskeltal Medical History: Reports: Arthritis Hematology: Denies: Anemia Past Surgical History Past Surgical History: Reports: Vascular Surgery - Left femoropopliteal bypass. Right artery stent. Social History Information Source: Patient Lives with: Alone Smoking Status: Current Every Day Smoker Frequency of Alcohol Use: Social Hx Recreational Drug Use: Yes - None since 2002 Drugs: Cocaine Hx Prescription Drug Abuse: No - Advance Directive Resuscitation Status: Do Not Resuscitate Surrogate healthcare decision maker:: The patient does have a completed DNR form. It is not on his person. He was very clear about his CODE STATUS. Family History Family History: CAD, Malignancy Parental Family History Reviewed: Yes Children Family History Reviewed: Yes Sibling(s) Family History Reviewed.: Yes Medication/Allergy Home Medications: Acetaminophen with Codeine [Tylenol with Codeine #3 Tablet] 1 tab PO Q6HP PRN 05/14/18 Amlodipine Besylate [Norvasc 5 mg Tablet] 5 mg PO DAILY 05/14/18 Atorvastatin Calcium [Lipitor 40 mg Tablet] 40 mg PO QHS 05/14/18 Fenofibrate 160 mg PO QHS 05/14/18 Furosemide [Lasix] 20 mg PO DAILY 05/14/18 Hydralazine HCl 100 mg PO Q12 05/14/18 Lisinopril [Prinivil 40 mg Tablet] 40 mg PO Q12 05/14/18 Metoprolol Tartrate [Lopressor 100 mg Tablet] 100 mg PO Q12 05/14/18 Nifedipine [Nifedipine ER] 30 mg PO QHS 05/14/18 Tramadol HCl [Ultram 50 mg Tablet] 50 mg PO Q6HP PRN 05/14/18 Warfarin Sodium [Coumadin 2.5 mg Tablet] 2.5 mg PO MOWEFR@1000 05/14/18 Warfarin Sodium [Coumadin 5 mg Tablet] 5 mg PO SUTUTHSA@1000 05/14/18 Allergies/Adverse Reactions: No Known Allergies Allergy (Verified 05/14/18 17:20) Review of Systems Constitutional: PRESENT: as per HPI Eyes: PRESENT: other - Wears glasses Ears: ABSENT: hearing changes Nose, Mouth, and Throat: PRESENT: other - Poor dentition. ABSENT: mouth pain Cardiovascular: PRESENT: edema. ABSENT: chest pain, dyspnea on exertion, palpitations Respiratory: ABSENT: dyspnea, hemoptysis Gastrointestinal: ABSENT: abdominal pain, heartburn, nausea, vomiting Genitourinary: ABSENT: dysuria, hematuria Musculoskeletal: ABSENT: deformity, joint swelling Integumentary: PRESENT: other - Ulcerations on the third toe of each foot Neurological: ABSENT: abnormal speech, confusion, memory loss, syncope, vertigo Psychiatric: ABSENT: anxiety, depression, hallucinations Endocrine: ABSENT: cold intolerance, heat intolerance, polydipsia, polyuria Hematologic/Lymphatic: PRESENT: other - Chronic warfarin therapy Physical Exam Vital Signs: Temp Pulse Resp BP Pulse Ox 98.2 F 15 107/71 100 05/14/18 13:32 05/14/18 17:01 05/14/18 17:00 05/14/18 16:01 Intake & Output 05/13/18 05/14/18 05/15/18 06:59 06:59 06:59 Intake Total 1000 Balance 1000 General appearance: PRESENT: no acute distress, obese, well-developed Head exam: PRESENT: normocephalic Eye exam: PRESENT: conjunctiva pale, EOMI. ABSENT: scleral icterus Ear exam: PRESENT: normal external ear exam Mouth exam: PRESENT: moist, neck supple, tongue midline Teeth exam: PRESENT: poor dentation Neck exam: PRESENT: full ROM. ABSENT: carotid bruit, JVD, lymphadenopathy Respiratory exam: PRESENT: clear to auscultation manuela, symmetrical, unlabored. ABSENT: prolonged expiratory phas, rales, rhonchi, wheezes Cardiovascular exam: PRESENT: irregular rhythm GI/Abdominal exam: PRESENT: normal bowel sounds, soft. ABSENT: distended, tenderness Rectal exam: PRESENT: deferred Extremities exam: PRESENT: other - Both feet with gauze dressings in place Neurological exam: PRESENT: alert, awake, oriented to person, oriented to place, oriented to time, oriented to situation, CN II-XII grossly intact Psychiatric exam: PRESENT: appropriate affect, normal mood. ABSENT: agitated, anxious Focused psych exam: ABSENT: restlessness Skin exam: PRESENT: other - Large incision medial left lower leg. Chronic pigment deposition both legs from chronic edema. Results Laboratory Results: 05/14/18 13:45 05/14/18 13:45 05/14/18 05/14/18 13:45 13:45 WBC 8.9 RBC 3.96 L Hgb 12.5 L Hct 37.9 MCV 96 MCH 31.5 MCHC 33.0 RDW 14.6 H Plt Count 258 Seg Neutrophils % 82.7 H Lymphocytes % 10.9 L Monocytes % 5.7 Eosinophils % 0.3 Basophils % 0.4 Absolute Neutrophils 7.4 Absolute Lymphocytes 1.0 Absolute Monocytes 0.5 Absolute Eosinophils 0.0 Absolute Basophils 0.0 Sodium 139.4 Potassium 5.1 H Chloride 106 Carbon Dioxide 21 L Anion Gap 12 BUN 52 H Creatinine 3.47 H Est GFR ( Amer) 22 L Est GFR (Non-Af Amer) 18 L Glucose 105 Calcium 8.8 Total Bilirubin 0.2 AST 28 ALT 17 L Alkaline Phosphatase 56 Total Protein 6.5 Albumin 3.8 Impressions: Chest X-Ray 05/14/18 13:34 IMPRESSION: NO ACUTE RADIOGRAPHIC FINDING IN THE CHEST. Assessment & Plan - Diagnosis (1) Hypotension Qualifiers: Hypotension type: hypotension due to hypovolemia Qualified Code(s): I95.89 - Other hypotension; E86.1 - Hypovolemia Is this a current diagnosis for this admission?: Yes Plan: The patient typically has refractory hypertension. He is on multiple medications. I will continue the amlodipine and metoprolol. I am temporarily holding the furosemide, hydralazine and lisinopril. He will be hydrated. We will be able to add these medications back based on his blood pressures. (2) Acute renal injury due to circulatory failure Is this a current diagnosis for this admission?: Yes Plan: The patient has acute on chronic kidney injury. Looking back at his records it appears that his baseline GFR is between 55 and 65. On admission today his GFR was only 18. We will hydrate the patient. Antihypertensives on hold as above. Repeat laboratory studies in the morning. Nephrology consulted to see the patient as well. (3) Over-anticoagulated Is this a current diagnosis for this admission?: Yes Plan: He was given vitamin K in the emergency department. I will recheck his INR tomorrow. Additional vitamin K if needed. If there is no bleeding then I will likely let his INR drift down without additional medication. (4) Peripheral vascular disease Is this a current diagnosis for this admission?: Yes Plan: He has had bypass on his left leg. He has a stent in his right leg. He still smokes which he knows is very bad for his peripheral arterial disease and I reminded him of this. A nicotine patch will be available. We will continue his aspirin. Resume warfarin when appropriate. Continue statin therapy. - Time Time Spent: 50 to 70 Minutes Smoking Cessation Education: 3 to 10 minutes Medications reviewed and adjusted accordingly: Yes Anticipated discharge: Home Within: within 48 hours
[2018-05-14] MEDS: NORMAL SALINE 1000 ML 1,000 ML IV PRN (20:17)
[2018-05-14] MEDS: METOPROLOL TARTRATE 100 MG TABLET PO SCH (21:22)
[2018-05-14] MEDS: ACETAMINOPHEN WITH CODEINE #3 TABLET PO PRN (21:48)
[2018-05-14] MEDS ORDERED: NORMAL SALINE 250 ML IV PRN ×2 (22:26)
[2018-05-14] MEDS: MUPIROCIN 2% OINTMENT 22 GM TP SCH (23:05)
[2018-05-15] MEDS: ACETAMINOPHEN WITH CODEINE #3 TABLET PO PRN ×4 (03:07→21:47)
[2018-05-15] MEDS: NORMAL SALINE 1000 ML 1,000 ML IV PRN ×3 (04:29→20:42)
[2018-05-15 04:57] LABS: ABSOLUTE EOSINOPHILS # (AUTO) 0.1 10^3/uL (0.0-0.6); ABSOLUTE LYMPHOCYTES (AUTO) 1.8 10^3/uL (0.5-4.7); ABSOLUTE MONOCYTES (AUTO) 0.7 10^3/uL (0.1-1.4); ABSOLUTE NEUT (AUTO) 2.3 10^3/uL (1.7-8.2); BASOPHILS % (AUTO) 0.7 % (0-2); EOSINOPHILS % (AUTO) 2.3 % (0-6); HEMATOCRIT 28.3 % (37.9-51.0); LYMPHOCYTES % (AUTO) 36.1 % (13-45); MEAN CORPUSCULAR HEMOGLOBIN 32.8 pg (27.0-33.4); MEAN CORPUSCULAR HGB CONC 34.8 g/dL (32.0-36.0); MEAN CORPUSCULAR VOLUME 94 fl (80-97); MONOCYTES % (AUTO) 13.3 % (3-13); PLATELET COUNT 187 10^3/uL (150-450); RED CELL DISTRIBUTION WIDTH 14.7 % (11.5-14.0); SEGMENTED NEUTROPHILS % (AUTO) 47.6 % (42-78); TOTAL CELLS COUNTED % (AUTO) 100 %; WHITE BLOOD COUNT 4.9 10^3/uL (4.0-10.5)
[2018-05-15 05:05] LABS: HEMOGLOBIN 9.8 g/dL (13.5-17.0)
[2018-05-15 05:10] LABS: INTERNATIONAL RATION (INR) 2.38
[2018-05-15 05:12] LABS: PROTHROMBIN TIME 27.1 SEC (11.4-15.4)
[2018-05-15 05:46] LABS: ANION GAP 8 (5-19); BLOOD UREA NITROGEN 45 mg/dL (7-20); CALCIUM 8.1 mg/dL (8.4-10.2); CARBON DIOXIDE 20 mmol/L (22-30); CHLORIDE 110 mmol/L (98-107); GLUCOSE 100 mg/dL (75-110); PHOSPHORUS 3.7 mg/dL (2.5-4.5); POTASSIUM 4.3 mmol/L (3.6-5.0); SODIUM 138.4 mmol/L (137-145)
--- NOTE | 2018-05-15 06:20 | PDOC CONSULTATION ---
Consultation Consult Date: 05/15/18 Consult reason:: bleeding foot wound History of Present Illness Admission Date/PCP: 05/14/18 16:26 RIMA REIS DO History of Present Illness: FRANCIE RUVALCABA is a 62 year old male seen at the request of the hospitalist service. The pt has a chronic foot wound, last debrided by his steam room attendant on 05-11-18. The pt is on Coumadin for A-fib chronically. The pt was started on antibiotics for his foot and began having spontaneous bleeding at home. The pt was seen at the wound-care clinic and was transferred to the hospital for further treatment. Nothing makes his bleeding better or worse. The pt denies CP SOB, fevers, chills, N/V, BANSAL, dizziness, orthostasis, sore throat, melena, he matochezia, hematemesis. Past Medical History Cardiac Medical History: Reports: Atrial Fibrillation, Coronary Artery Disease, Myocardial Infarction, Hypertension, Peripheral Vascular Disease Pulmonary Medical History: Denies: Asthma, Bronchitis, Chronic Obstructive Pulmonary Disease (COPD), Pneumonia Neurological Medical History: Denies: Seizures Musculoskeltal Medical History: Reports: Arthritis Psychiatric Medical History: Denies: Depression Hematology: Denies: Anemia Past Surgical History Past Surgical History: Reports: Vascular Surgery - Left femoropopliteal bypass. Right artery stent. Social History Lives with: Alone Smoking Status: Current Some Day Smoker Cigarettes Packs Per Day: 5 Number of Years Smokin Last Time Smoked: 2 days ago Frequency of Alcohol Use: Occasional Hx Recreational Drug Use: - in past Drugs: Cocaine Hx Prescription Drug Abuse: No - Advance Directive Resuscitation Status: Do Not Resuscitate Family History Family History: Reviewed & Not Pertinent Parental Family History Reviewed: Yes Children Family History Reviewed: Yes Sibling(s) Family History Reviewed.: Yes Medication/Allergy Home Medications: Acetaminophen with Codeine [Tylenol with Codeine #3 Tablet] 1 tab PO Q6HP PRN 05/14/18 Amlodipine Besylate [Norvasc 5 mg Tablet] 5 mg PO DAILY 05/14/18 Atorvastatin Calcium [Lipitor 40 mg Tablet] 40 mg PO QHS 05/14/18 Fenofibrate 160 mg PO QHS 05/14/18 Furosemide [Lasix] 20 mg PO DAILY 05/14/18 Hydralazine HCl 100 mg PO Q12 05/14/18 Lisinopril [Prinivil 40 mg Tablet] 40 mg PO Q12 05/14/18 Metoprolol Tartrate [Lopressor 100 mg Tablet] 100 mg PO Q12 05/14/18 Nifedipine [Nifedipine ER] 30 mg PO QHS 05/14/18 Tramadol HCl [Ultram 50 mg Tablet] 50 mg PO Q6HP PRN 05/14/18 Warfarin Sodium [Coumadin 2.5 mg Tablet] 2.5 mg PO MOWEFR@1000 05/14/18 Warfarin Sodium [Coumadin 5 mg Tablet] 5 mg PO SUTUTHSA@1000 05/14/18 Allergies/Adverse Reactions: No Known Allergies Allergy (Verified 05/14/18 17:20) Review of Systems Constitutional: ABSENT: anorexia, chills, fatigue, fever(s), headache(s) Eyes: ABSENT: visual disturbances Ears: ABSENT: hearing changes Nose, Mouth, and Throat: ABSENT: sore throat Cardiovascular: ABSENT: chest pain Respiratory: ABSENT: cough, dyspnea Gastrointestinal: ABSENT: abdominal pain, hematemesis, hematochezia, melena, nausea, vomiting Genitourinary: ABSENT: dysuria Musculoskeletal: ABSENT: back pain Integumentary: ABSENT: pruritus, rash Neurological: ABSENT: confusion, convulsions, dizziness Psychiatric: ABSENT: anxiety, depression Endocrine: ABSENT: cold intolerance, heat intolerance Hematologic/Lymphatic: PRESENT: easy bleeding, easy bruising Physical Exam Vital Signs: Temp Pulse Resp BP Pulse Ox 98.3 F 83 17 117/74 99 05/15/18 00:44 05/15/18 00:44 05/15/18 00:44 05/15/18 00:44 05/15/18 00:44 Intake & Output 05/13/18 05/14/18 05/15/18 06:59 06:59 06:59 Intake Total 1330 Output Total 300 Balance 1030 Weight 88.3 kg General appearance: PRESENT: no acute distress, cooperative Head exam: PRESENT: atraumatic, normocephalic Eye exam: PRESENT: EOMI, PERRLA. ABSENT: scleral icterus Mouth exam: PRESENT: moist, neck supple Neck exam: ABSENT: meningismus, tenderness, thyromegaly, tracheal deviation Respiratory exam: PRESENT: clear to auscultation manuela, unlabored. ABSENT: chest wall tenderness, tachypnea, wheezes Cardiovascular exam: PRESENT: irregular rhythm Pulses: PRESENT: normal radial pulses Vascular exam: PRESENT: normal capillary refill. ABSENT: pallor GI/Abdominal exam: PRESENT: soft. ABSENT: distended, tenderness Rectal exam: PRESENT: deferred Extremities exam: PRESENT: other - Wound to the distal aspect of the left third toe. No active bleeding.. ABSENT: clubbing Musculoskeletal exam: ABSENT: deformity Neurological exam: PRESENT: alert, awake, oriented to person, oriented to place, oriented to time, oriented to situation, CN II-XII grossly intact Psychiatric exam: ABSENT: agitated, anxious, depressed Focused psych exam: ABSENT: delusional Skin exam: ABSENT: abrasion, erythema, jaundice Results Laboratory Results: 05/14/18 13:45 05/14/18 13:45 05/14/18 05/14/18 05/14/18 13:45 13:45 22:40 WBC 8.9 RBC 3.96 L Hgb 12.5 L Hct 37.9 MCV 96 MCH 31.5 MCHC 33.0 RDW 14.6 H Plt Count 258 Seg Neutrophils % 82.7 H Lymphocytes % 10.9 L Monocytes % 5.7 Eosinophils % 0.3 Basophils % 0.4 Absolute Neutrophils 7.4 Absolute Lymphocytes 1.0 Absolute Monocytes 0.5 Absolute Eosinophils 0.0 Absolute Basophils 0.0 Sodium 139.4 Potassium 5.1 H Chloride 106 Carbon Dioxide 21 L Anion Gap 12 BUN 52 H Creatinine 3.47 H Est GFR ( Amer) 22 L Est GFR (Non-Af Amer) 18 L Glucose 105 Calcium 8.8 Total Bilirubin 0.2 AST 28 ALT 17 L Alkaline Phosphatase 56 Total Protein 6.5 Albumin 3.8 Blood Type O POSITIVE Impressions: Chest X-Ray 05/14/18 13:34 IMPRESSION: NO ACUTE RADIOGRAPHIC FINDING IN THE CHEST. Assessment & Plan - Diagnosis (1) Supratherapeutic INR Is this a current diagnosis for this admission?: Yes (2) Spontaneous bleeding of digits Is this a current diagnosis for this admission?: Yes - Plan Summary Plan Summary: This is a 62-year-old male with spontaneous bleeding from a chronic wound due to his supratherapeutic INR. At this time, I recommend reversal of his Coumadin toxicity. There is no surgical intervention that would be helpful in this patient with an INR so high that it is unmeasurable. I recommend FFP, pressure, and repeat INR in the near future. Damp dressing changes twice daily. I will sign off the patient's care at this time. Please renotify with any questions or concerns.
[2018-05-15 07:05] LABS: APPEARANCE,URINE SLIGHTLY-CLOUDY; BILIRUBIN,URINE NEGATIVE (NEGATIVE); COLOR,URINE YELLOW; GLUCOSE, URINE 50 mg/dL (NEGATIVE); KETONES,URINE NEGATIVE (NEGATIVE); LEUKOCYTE ESTERASE,URINE NEGATIVE (NEGATIVE); NITRITE,URINE NEGATIVE (NEGATIVE); PROTEIN,URINE NEGATIVE (NEGATIVE); URIC ACID CRYSTALS,URINE RARE /HPF; URINE SPECIFIC GRAVITY 1.018; UROBILINOGEN,URINE NEGATIVE mg/dL (<2.0)
--- NOTE | 2018-05-15 08:24 | EKG REPORT ---
SEVERITY:- ABNORMAL ECG - ATRIAL FIBRILLATION, V-RATE 58-89 RIGHT BUNDLE BRANCH BLOCK : Confirmed by: Camelia Cagle MD 15-May-2018 08:23:35
[2018-05-15] MEDS: METOPROLOL TARTRATE 100 MG TABLET PO SCH ×2 (10:18→21:46)
[2018-05-15] MEDS: AMLODIPINE BESYLATE 5 MG TABLET PO SCH (10:18)
[2018-05-15] MEDS: ASPIRIN 81 MG TABLET, ENT COATED PO SCH (10:18)
[2018-05-15] MEDS: PSYLLIUM SEED-SF 5.85 GM PACKET PO SCH (10:18)
[2018-05-15] MEDS: MUPIROCIN 2% OINTMENT 22 GM TP SCH ×2 (10:21→17:31)
[2018-05-15] MEDS: LOPERAMIDE HCL 2 MG CAPSULE PO PRN (17:31)
--- NOTE | 2018-05-15 19:46 | PDOC PROGRESS REPORT ---
Subjective Progress Note for:: 05/15/18 Subjective:: Patient resting comfortably this evening. Left foot with Covan over gauze to apply increased pressure to the spontaneous bleeding. Patient reports diarrhea and requests Imodium. He is otherwise resting comfortably. Reason For Visit: HYPOTENSION,HYPERCOAGULATION Physical Exam Vital Signs: Temp Pulse Resp BP Pulse Ox 98.4 F 71 16 99/57 L 96 05/15/18 15:51 05/15/18 15:51 05/15/18 15:51 05/15/18 15:51 05/15/18 15:51 Intake & Output 05/14/18 05/15/18 05/16/18 06:59 06:59 06:59 Intake Total 2330 1873 Output Total 300 550 Balance 2030 1323 Weight 92.9 kg General appearance: PRESENT: no acute distress Head exam: PRESENT: normocephalic Respiratory exam: PRESENT: clear to auscultation manuela, symmetrical, unlabored. ABSENT: rales, rhonchi, wheezes Cardiovascular exam: PRESENT: irregular rhythm GI/Abdominal exam: PRESENT: normal bowel sounds, soft. ABSENT: tenderness Extremities exam: PRESENT: other - Dressings on both feet. Neurological exam: PRESENT: alert, awake, oriented to person, oriented to place, oriented to time, oriented to situation, CN II-XII grossly intact Psychiatric exam: PRESENT: appropriate affect, normal mood. ABSENT: agitated, anxious Results Laboratory Results: 05/15/18 04:33 05/15/18 04:33 05/14/18 05/15/18 05/15/18 22:40 04:33 04:33 WBC 4.9 RBC 3.00 L Hgb 9.8 L D Hct 28.3 L MCV 94 MCH 32.8 MCHC 34.8 RDW 14.7 H Plt Count 187 Seg Neutrophils % 47.6 Lymphocytes % 36.1 Monocytes % 13.3 H Eosinophils % 2.3 Basophils % 0.7 Absolute Neutrophils 2.3 Absolute Lymphocytes 1.8 Absolute Monocytes 0.7 Absolute Eosinophils 0.1 Absolute Basophils 0.0 Sodium 138.4 Potassium 4.3 Chloride 110 H Carbon Dioxide 20 L Anion Gap 8 BUN 45 H Creatinine 2.70 H Est GFR ( Amer) 29 L Est GFR (Non-Af Amer) 24 L Glucose 100 Calcium 8.1 L Phosphorus 3.7 Albumin 3.0 L Urine Color Urine Appearance Urine pH Ur Specific [place] Urine Protein Urine Glucose (UA) Urine Ketones Urine Blood Urine Nitrite Ur Leukocyte Esterase Urine WBC (Auto) Urine RBC (Auto) Blood Type O POSITIVE 05/15/18 06:42 WBC RBC Hgb Hct MCV MCH MCHC RDW Plt Count Seg Neutrophils % Lymphocytes % Monocytes % Eosinophils % Basophils % Absolute Neutrophils Absolute Lymphocytes Absolute Monocytes Absolute Eosinophils Absolute Basophils Sodium Potassium Chloride Carbon Dioxide Anion Gap BUN Creatinine Est GFR ( Amer) Est GFR (Non-Af Amer) Glucose Calcium Phosphorus Albumin Urine Color YELLOW Urine Appearance SLIGHTLY-CLOUDY Urine pH 5.0 Ur Specific [place] 1.018 Urine Protein NEGATIVE Urine Glucose (UA) 50 H Urine Ketones NEGATIVE Urine Blood MODERATE H Urine Nitrite NEGATIVE Ur Leukocyte Esterase NEGATIVE Urine WBC (Auto) 1 Urine RBC (Auto) 78 Blood Type Impressions: Chest X-Ray 05/14/18 13:34 IMPRESSION: NO ACUTE RADIOGRAPHIC FINDING IN THE CHEST. Assessment & Plan - Diagnosis (1) Hypotension Qualifiers: Hypotension type: hypotension due to hypovolemia Qualified Code(s): I95.89 - Other hypotension; E86.1 - Hypovolemia Is this a current diagnosis for this admission?: Yes Plan: Still with low blood pressures despite holding more than half of his antihypertensives. Parameters are in place to hold for low blood pressure. We will need to add back medications very slowly. (2) Acute renal injury due to circulatory failure Is this a current diagnosis for this admission?: Yes Plan: Serum creatinine is improving slowly. We will continue hydration. The patient sees Dr. Miller for nephrology. Will refer back after discharge. (3) Over-anticoagulated Is this a current diagnosis for this admission?: Yes Plan: INR was in the therapeutic range today. The patient still had some bleeding on his feet. I will resume his warfarin tomorrow. (4) Peripheral vascular disease Is this a current diagnosis for this admission?: Yes Plan: Remains on aspirin. Warfarin is still on hold but will likely start tomorrow. Will need to be mindful of his circulation when applying compression for his bleeding. - Time Time Spent with patient: Less than 15 minutes Medications reviewed and adjusted accordingly: Yes
[2018-05-16] MEDS: NORMAL SALINE 1000 ML 1,000 ML IV PRN ×2 (03:09→10:34)
[2018-05-16 05:10] LABS: ABSOLUTE BASOPHILS # (AUTO) 0.1 10^3/uL (0.0-0.2); ABSOLUTE EOSINOPHILS # (AUTO) 0.1 10^3/uL (0.0-0.6); ABSOLUTE LYMPHOCYTES (AUTO) 2.3 10^3/uL (0.5-4.7); ABSOLUTE MONOCYTES (AUTO) 0.6 10^3/uL (0.1-1.4); ABSOLUTE NEUT (AUTO) 3.6 10^3/uL (1.7-8.2); BASOPHILS % (AUTO) 0.9 % (0-2); EOSINOPHILS % (AUTO) 2.1 % (0-6); HEMATOCRIT 29.3 % (37.9-51.0); HEMOGLOBIN 9.7 g/dL (13.5-17.0); LYMPHOCYTES % (AUTO) 34.2 % (13-45); MEAN CORPUSCULAR HEMOGLOBIN 31.9 pg (27.0-33.4); MEAN CORPUSCULAR HGB CONC 33.1 g/dL (32.0-36.0); MEAN CORPUSCULAR VOLUME 96 fl (80-97); MONOCYTES % (AUTO) 9.6 % (3-13); PLATELET COUNT 176 10^3/uL (150-450); RED BLOOD COUNT 3.04 10^6/uL (4.35-5.55); RED CELL DISTRIBUTION WIDTH 14.6 % (11.5-14.0); SEGMENTED NEUTROPHILS % (AUTO) 53.2 % (42-78); TOTAL CELLS COUNTED % (AUTO) 100 %; WHITE BLOOD COUNT 6.7 10^3/uL (4.0-10.5)
[2018-05-16 05:12] LABS: INTERNATIONAL RATION (INR) 1.57; PROTHROMBIN TIME 19.5 SEC (11.4-15.4)
[2018-05-16 05:44] LABS: ANION GAP 5 (5-19); BLOOD UREA NITROGEN 32 mg/dL (7-20); CALCIUM 7.9 mg/dL (8.4-10.2); CARBON DIOXIDE 21 mmol/L (22-30); CHLORIDE 114 mmol/L (98-107); GLUCOSE 94 mg/dL (75-110); POTASSIUM 4.9 mmol/L (3.6-5.0); SODIUM 139.6 mmol/L (137-145)
[2018-05-16] MEDS: ACETAMINOPHEN WITH CODEINE #3 TABLET PO PRN (10:33)
[2018-05-16] MEDS: LOPERAMIDE HCL 2 MG CAPSULE PO PRN ×2 (10:34→17:03)
[2018-05-16] MEDS: ASPIRIN 81 MG TABLET, ENT COATED PO SCH (10:34)
[2018-05-16] MEDS: METOPROLOL TARTRATE 100 MG TABLET PO SCH (10:34)
[2018-05-16] MEDS: AMLODIPINE BESYLATE 5 MG TABLET PO SCH (10:34)
[2018-05-16] MEDS: MUPIROCIN 2% OINTMENT 22 GM TP SCH ×2 (10:34→17:05)
[2018-05-16] MEDS: PSYLLIUM SEED-SF 5.85 GM PACKET PO SCH (11:14)
[2018-05-16 17:10] VITALS: BP 117/74
--- NOTE | 2018-05-16 19:48 | PDOC DISCHARGE SUMMARY ---
General - Admit/Disc Date/PCP Admission Date/Primary Care Provider: 05/15/18 16:40 RIMA ROBERSON, Castro Domingo Discharge Date: 05/16/18 - Discharge Diagnosis (1) Hypotension Is this a current diagnosis for this admission?: Yes Summary: Due to profuse diarrhea and decreased intake the patient became volume contracted. This led to hypotension. He is on multiple antihypertensive medications. On admission in addition to hydration some of these medications were held. His blood pressure is greatly improved. I will still hold some of his medicines at discharge and he will follow-up with his steel buffer and/or primary care physician before adding the remainder of his medicines. (2) Acute renal injury due to circulatory failure Is this a current diagnosis for this admission?: Yes Summary: The patient has chronic stage III kidney failure. Because of volume depletion and dehydration he suffered acute on chronic kidney injury with significant decrease in GFR. With hydration and holding some of his medications his renal function is improving. It is not yet to baseline. I have asked him to hold his lisinopril and hydralazine. With his current regimen he should have reasonable blood pressure control and his renal function should improve to baseline. I have asked him to follow-up with Dr. Miller and Dr. Roberson. (3) Over-anticoagulated Is this a current diagnosis for this admission?: Yes Summary: His INR is finally in the lower end of the therapeutic range. He has had no more bleeding from his left foot. I told him to resume his current regimen of warfarin. We are holding p.o. antibiotics until cc the wound care clinic on I believe. He will continue his topical Bactroban with dressing epstein es. (4) Peripheral vascular disease Is this a current diagnosis for this admission?: Yes Summary: The patient will continue good blood pressure control and his aspirin therapy along with his warfarin. - Additional Information Resuscitation Status: Do Not Resuscitate Discharge Diet: Cardiac Discharge Activity: Activity As Tolerated, Balance Activity w/Rest Home Medications: Acetaminophen with Codeine [Tylenol with Codeine #3 Tablet] 1 tab PO Q6HP PRN 05/14/18 Amlodipine Besylate [Norvasc 5 mg Tablet] 5 mg PO DAILY 05/14/18 Atorvastatin Calcium [Lipitor 40 mg Tablet] 40 mg PO QHS 05/14/18 Fenofibrate 160 mg PO QHS 05/14/18 Furosemide [Lasix] 20 mg PO DAILY 05/14/18 Metoprolol Tartrate [Lopressor 100 mg Tablet] 100 mg PO Q12 05/14/18 Nifedipine [Nifedipine ER] 30 mg PO QHS 05/14/18 Tramadol HCl [Ultram 50 mg Tablet] 50 mg PO Q6HP PRN 05/14/18 Warfarin Sodium [Coumadin 2.5 mg Tablet] 2.5 mg PO MOWEFR@1000 05/14/18 Warfarin Sodium [Coumadin 5 mg Tablet] 5 mg PO SUTUTHSA@1000 05/14/18 Acetaminophen with Codeine [Tylenol #3 Tablet] 1 each PO TIDP PRN tablet 05/16/18 Amlodipine Besylate [Norvasc 5 mg Tablet] 5 mg PO DAILY tablet 05/16/18 Aspirin [Ecotrin 81 mg EC Tablet] 81 mg PO DAILY tabec 05/16/18 Loperamide HCl [Imodium 2 mg Capsule] 2 mg PO Q4HP PRN capsule 05/16/18 Metoprolol Tartrate [Lopressor 100 mg Tablet] 100 mg PO Q12 tablet 05/16/18 Mupirocin [Bactroban 2% Ointment 22 gm] 1 applic TP BID tube 05/16/18 Nicotine [Nicoderm 7 mg/24 Hr Transdermal Patch] 1 each TD DAILYP PRN patch.td24 05/16/18 Psyllium Seed [Metamucil-Sf Powder 5.85 gm Packet] 1 packet PO DAILY packet 05/16/18 History of Present Illness Patient complains of: Intractable bleeding from his toes History of Present Illness: FRANCIE RUVALCABA is a 62 year old male who is a chronic kidney patient of Dr. Miller and wound care patient of Dr. Domingo. He has underlying chronic atrial fibrillation, chronic kidney failure, hypertension and peripheral vascular disease. He went to the wound care center for a routine follow-up appointment today and prior to the appointment while taking his vital signs he was found to have a systolic pressure less than 100. The office directed him to go to the emergency department. The patient reports that he felt that his blood pressure might have been a little low but did not think it was going to be as low as the measured pressure. During the evaluation in the emergency department blood work revealed that his INR was above the detectable limit. This is likely from antibiotics given for his feet. The patient is on multiple antihypertensive medications and we will need to judiciously adjust them. In addition we need to evaluate the absolute need for antibiotics or not. His renal function certainly took a hit. He states that he had profuse diarrhea approximately 1 week ago and believes that it was volume depletion that may have started this. He will be admitted to the hospital and given fluids and adjust medications for his blood pressure. He was given vitamin K for the markedly elevated INR. We will continue to monitor his labs. I have asked Dr. Domingo to see the patient tomorrow regarding his feet and have asked Dr. Rodgers, who is covering for Dr. Miller, to review the patient tomorrow as well. Hospital Course Hospital Course: Patient uneventful hospital course. He was given vitamin K in the emergency department. His INR decreased and was in the low therapeutic range. Warfarin was held yesterday because he was still bleeding from the left foot. There is no bleeding today. With IV hydration and withholding some of his antihypertensives (furosemide, lisinopril and hydralazine) his renal function was improving. He did review his numbers with Dr. Rodgers and the hydration and limited antihypertensives were a ppropriate. At the time of discharge he has had no more bleeding from his foot. He will resume his old warfarin schedule. He will continue Bactroban to the toe ulcers. I did not give him systemic antibiotics. He finished one 10-day course prior and was in the midst of a second course of antibiotics when his INR was supratherapeutic. We have asked that he be scheduled in wound care clinic on . Dr. Domingo can decide if further antibiotic therapy is appropriate. The patient's lisinopril and hydralazine are being withheld. I did asked that he check his blood pressure regularly. I told him that over the next week or so he will likely be able to slowly add back his medications. I asked that he follow-up with Dr. Miller and Dr. Roberson as it will likely take 5-7 days before the next adjustment is necessary. Physical Exam Vital Signs: Temp Pulse Resp BP Pulse Ox 98.3 F 71 18 117/74 96 05/16/18 17:06 05/16/18 17:06 05/16/18 17:06 05/16/18 17:06 05/16/18 17:06 Intake & Output 05/15/18 05/16/18 05/17/18 06:59 06:59 06:59 Intake Total 2330 3841 1000 Output Total 300 1550 625 Balance 2030 2291 375 Weight 92.9 kg 93 kg 93 kg General appearance: PRESENT: no acute distress Respiratory exam: PRESENT: clear to auscultation manuela, symmetrical, unlabored. ABSENT: prolonged expiratory phas, rales, rhonchi, wheezes Cardiovascular exam: PRESENT: irregular rhythm GI/Abdominal exam: PRESENT: normal bowel sounds, soft. ABSENT: distended - He was in there when I came through, tenderness Extremities exam: PRESENT: other - Dressings on both feet. The left foot had compression dressings due to the bleeding. Neurological exam: PRESENT: alert, awake, oriented to person, oriented to place, oriented to time, oriented to situation, CN II-XII grossly intact Psychiatric exam: PRESENT: appropriate affect, normal mood. ABSENT: agitated, anxious Focused psych exam: ABSENT: restlessness Skin exam: PRESENT: other - Feet as above Results Laboratory Results: 05/16/18 04:48 05/16/18 04:48 05/16/18 05/16/18 04:48 04:48 WBC 6.7 RBC 3.04 L Hgb 9.7 L Hct 29.3 L MCV 96 MCH 31.9 MCHC 33.1 RDW 14.6 H Plt Count 176 Seg Neutrophils % 53.2 Lymphocytes % 34.2 Monocytes % 9.6 Eosinophils % 2.1 Basophils % 0.9 Absolute Neutrophils 3.6 Absolute Lymphocytes 2.3 Absolute Monocytes 0.6 Absolute Eosinophils 0.1 Absolute Basophils 0.1 Sodium 139.6 Potassium 4.9 Chloride 114 H Carbon Dioxide 21 L Anion Gap 5 BUN 32 H Creatinine 1.99 H Est GFR ( Amer) 42 L Est GFR (Non-Af Amer) 34 L Glucose 94 Calcium 7.9 L Impressions: Chest X-Ray 05/14/18 13:34 IMPRESSION: NO ACUTE RADIOGRAPHIC FINDING IN THE CHEST. Qualifiers - * PATIENT BEING DISCHARGED WITH ANY OF THE FOLLOWING DIAGNOSIS: No Plan Discharge Plan: The patient will be discharged to home. He will continue with his primary care, steel buffer, global lead and psychiatry teacher. Time Spent: Greater than 30 Minutes
== END 2018-05-16 17:38 | disposition home or self-care (01) | DRG 813 ==
LOC: ER 13:24 → EH 16:26 → 3N 18:46 → OBSVTOIN 05-15 16:40
PROVIDERS: ADMIT Hospitalist; ATTEND Hospitalist
PROC: 30233K1 Transfusion of Nonautologous Frozen Plasma into Peripheral Vein, Percutaneous Approach (ICD-10-PCS; principal; 2018-05-15)
DX: D68.32 Hemorrhagic disorder due to extrinsic circulating anticoagulants (principal); N17.9 Acute kidney failure, unspecified; R58 Hemorrhage, not elsewhere classified; T45.525A Adverse effect of antithrombotic drugs, initial encounter; I95.89 Other hypotension; Z66 Do not resuscitate; I12.9 Hypertensive chronic kidney disease with stage 1 through stage 4 chronic kidney disease, or unspecified chronic kidney disease; N18.3 Chronic kidney disease, stage 3 (moderate); L97.529 Non-pressure chronic ulcer of other part of left foot with unspecified severity; L97.519 Non-pressure chronic ulcer of other part of right foot with unspecified severity; I48.2 Chronic atrial fibrillation; I25.10 Atherosclerotic heart disease of native coronary artery without angina pectoris; I73.9 Peripheral vascular disease, unspecified; F17.210 Nicotine dependence, cigarettes, uncomplicated; Y92.098 Other place in other non-institutional residence as the place of occurrence of the external cause; Z60.2 Problems related to living alone; I25.2 Old myocardial infarction; Z79.01 Long term (current) use of anticoagulants; Z79.899 Other long term (current) drug therapy; R19.7 Diarrhea, unspecified
CPT/HCPCS: 36415; 36430; 71045; 80048; 80053; 80069; 81001; 85025; 85610; 86900; 86901; 93005; 93010; 96360; 96361; 99285; G0378; J3490; J7030; P9017

== ENCOUNTER → 2018-05-14 | Outpatient (CLI) | payer MEDICARE, MEDICAID ==
--- NOTE | 2018-05-14 11:45 | RADIOLOGY REPORT (SQ) ---
EXAM DESCRIPTION: FOOT LEFT COMPLETE COMPLETED DATE/TIME: 05/14/2018 11:36 am REASON FOR STUDY: ANON-PRS CHRONIC ULCER OTH PRT LEFT FOOT W NECROSIS OF BONE I48.2 CHRONIC ATRIAL FIBRILLATION Z79.01 DIRECT CARE STAFFER (CURRENT) USE OF ANTICOAGULANTS L97.524 NON-PRS CHRONIC ULCER OTH PRT LEFT FOOT W NECROSIS O COMPARISON: 04/20/2018, 04/14/2015 NUMBER OF VIEWS: Three views. TECHNIQUE: AP, lateral and oblique radiographic images acquired of the left foot. LIMITATIONS: None. FINDINGS: MINERALIZATION: Normal. 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 4th and 5th toes are still pr esent. Progressive demineralization of the 3rd toe phalanges from osteomyelitis. Overlying soft tissue woun d 3rd toe with radiopaque gauze. JOINTS: No ankle joint effusion SOFT TISSUES: No soft tissue swelling. No foreign body. OTHER: No other significant finding. IMPRESSION: Progressive demineralization of the 3rd toe phalanges from osteomyelitis since prior geeta ms 04/20/2018. TECHNICAL DOCUMENTATION: JOB ID: [id number]- All Rights Reserved Reading location - IP/workstation name: [email or web address]
== END ==
LOC: OD 10:55
PROVIDERS: ATTEND Specialist
DX: I48.2 Chronic atrial fibrillation (principal); I25.10 Atherosclerotic heart disease of native coronary artery without angina pectoris; I25.2 Old myocardial infarction; I73.9 Peripheral vascular disease, unspecified; G45.9 Transient cerebral ischemic attack, unspecified; E78.5 Hyperlipidemia, unspecified; F17.210 Nicotine dependence, cigarettes, uncomplicated; R01.1 Cardiac murmur, unspecified; R06.00 Dyspnea, unspecified; I13.0 Hypertensive heart and chronic kidney disease with heart failure and stage 1 through stage 4 chronic kidney disease, or unspecified chronic kidney disease; N18.3 Chronic kidney disease, stage 3 (moderate); Z79.01 Long term (current) use of anticoagulants

== ENCOUNTER → 2018-06-17 | Outpatient (CLI) | payer MEDICARE, MEDICAID ==
[2018-06-17 17:57] LABS: INTERNATIONAL RATION (INR) 1.45; PROTHROMBIN TIME 18.4 SEC (11.4-15.4)
== END ==
LOC: OD 16:54
PROVIDERS: ATTEND Specialist
DX: I25.10 Atherosclerotic heart disease of native coronary artery without angina pectoris (principal); I25.2 Old myocardial infarction; I48.2 Chronic atrial fibrillation; Z79.01 Long term (current) use of anticoagulants; I12.9 Hypertensive chronic kidney disease with stage 1 through stage 4 chronic kidney disease, or unspecified chronic kidney disease; N18.9 Chronic kidney disease, unspecified; G45.9 Transient cerebral ischemic attack, unspecified; E78.5 Hyperlipidemia, unspecified; R06.00 Dyspnea, unspecified; R01.1 Cardiac murmur, unspecified; Z79.899 Other long term (current) drug therapy; F17.210 Nicotine dependence, cigarettes, uncomplicated
CPT/HCPCS: 36415; 85610

== ENCOUNTER → 2018-07-07 | Outpatient (CLI) | payer MEDICARE, MEDICAID ==
[2018-07-07 17:52] LABS: INTERNATIONAL RATION (INR) 1.37; PROTHROMBIN TIME 17.6 SEC (11.4-15.4)
== END ==
LOC: OD 16:31
PROVIDERS: ATTEND Specialist
DX: I25.10 Atherosclerotic heart disease of native coronary artery without angina pectoris (principal); I48.2 Chronic atrial fibrillation; Z79.01 Long term (current) use of anticoagulants; I73.9 Peripheral vascular disease, unspecified; I12.9 Hypertensive chronic kidney disease with stage 1 through stage 4 chronic kidney disease, or unspecified chronic kidney disease; N18.3 Chronic kidney disease, stage 3 (moderate); E78.5 Hyperlipidemia, unspecified; I34.0 Nonrheumatic mitral (valve) insufficiency; I25.2 Old myocardial infarction; I36.1 Nonrheumatic tricuspid (valve) insufficiency; G45.9 Transient cerebral ischemic attack, unspecified; R01.1 Cardiac murmur, unspecified; R06.00 Dyspnea, unspecified; F17.210 Nicotine dependence, cigarettes, uncomplicated; Z79.899 Other long term (current) drug therapy
CPT/HCPCS: 36415; 85610

== ENCOUNTER 2018-07-09 11:10 | Emergency (ER) | payer MEDICARE, MEDICAID ==
[2018-07-09 11:40] LABS: HEMATOCRIT 51.5 % (37.9-51.0); HEMOGLOBIN 16.7 g/dL (13.5-17.0); MEAN CORPUSCULAR HEMOGLOBIN 27.2 pg (27.0-33.4); MEAN CORPUSCULAR HGB CONC 32.4 g/dL (32.0-36.0); MEAN CORPUSCULAR VOLUME 84 fl (80-97); PLATELET COUNT 310 10^3/uL (150-450); RED BLOOD COUNT 6.13 10^6/uL (4.35-5.55); RED CELL DISTRIBUTION WIDTH 17.7 % (11.5-14.0); WHITE BLOOD COUNT 21.6 10^3/uL (4.0-10.5)
[2018-07-09] MEDS ORDERED: KETOROLAC TROMETHAMINE INJ/PF 30 MG/1 ML SDV IV ONE (11:45)
[2018-07-09] MEDS ORDERED: NORMAL SALINE 1000 ML 1,000 ML IV ONE (11:45)
--- NOTE | 2018-07-09 11:46 | ER Document Report ---
ED General - General Chief Complaint: Flank Pain Stated Complaint: NAUSEA Time Seen by Provider: 07/09/18 11:25 Primary Care Provider: ISAC DIAZ MD [ACTIVE STAFF] - Follow up as needed TRAVEL OUTSIDE OF THE [place] IN LAST 30 DAYS: No - HPI Notes: Patient is a 63-year-old male that presents to the emergency department for chief complaint of left flank pain. Patient states he had acute onset of pain in his left flank at 8 PM last night. The pain is sharp and achy. He states it wraps from his left side down into his left groin. He does have a history of kidney stones and states this feels the same. Patient denies any dysuria, hematuria, fever, chills, diarrhea and constipation. He has not taken any [id number] medication for his pain. He denies any relieving factors or aggravating factors to his pain. Past Medical History: Kidney stones, hypertension, atrial fibrillation, cardiomyopathy Past Surgical History: Left leg femoropopliteal bypass Social History: Occasional tobacco, occasional alcohol, denies drug use Family History: Reviewed and noncontributory for presenting illness Allergies: Reviewed, see documented allergy list. REVIEW OF SYSTEMS: CONSTITUTIONAL : No fever No chills No diaphoresis No recent illness EENT: No vision changes No congestion No sore throat CARDIOVASCULAR: No chest pain No palpitations RESPIRATORY: No shortness of breath No cough No difficulty breathing GASTROINTESTINAL: No abdominal pain Left flank pain No nausea No vomiting No diarrhea GENITOURINARY: No dysuria No hematuria No difficulty urinating MUSCULOSKELETAL: No back pain No leg pain No arm pain SKIN: No rashes No lesions LYMPHATIC: No swollen, enlarged glands. NEUROLOGICAL: No lightheadedness No headache No weakness No paresthesias PSYCHIATRIC: No anxiety No depression PHYSICAL EXAMINATION: Vital signs reviewed, nursing noted reviewed. GENERAL: Well-appearing, well-nourished and in no acute distress. HEAD: Atraumatic, normocephalic. EYES: Eyes appear normal, extraocular movements intact, sclera anicteric, conjunctiva are normal. ENT: nares patent, oropharynx clear without exudates. Moist mucous membranes. NECK: Normal range of motion, supple without lymphadenopathy LUNGS: Breath sounds wheezing to auscultation bilaterally. No accessory muscle use or tachypnea HEART: Regular rate and rhythm without murmurs ABDOMEN: No CVA tenderness, protuberant, soft, mild left lower quadrant tenderness. No rebound, guarding, or rigidity. No masses appreciated. EXTREMITIES: Nontender, good range of motion, +1 pretibial edema bilateral, symmetric NEUROLOGICAL: No focal neurological deficits. Moves all extremities spontaneously Motor and sensory grossly intact on exam. PSYCH: Normal mood, normal affect. SKIN: Warm, Dry, normal turgor. Wound dressings to bilateral feet - Related Data Allergies/Adverse Reactions: No Known Allergies Allergy (Verified 05/14/18 17:20) Past Medical History - Social History Smoking Status: Unknown if Ever Smoked Family History: Reviewed & Not Pertinent Patient has suicidal ideation: No Patient has homicidal ideation: No - Past Medical History Cardiac Medical History: Reports: Hx Atrial Fibrillation, Hx Coronary Artery Disease, Hx Heart Attack, Hx Hypertension, Hx Peripheral Vascular Disease Pulmonary Medical History: Denies: Hx Asthma, Hx Bronchitis, Hx COPD, Hx Pneumonia Neurological Medical History: Denies: Hx Cerebrovascular Accident, Hx Seizures Renal/ Medical History: Denies: Hx Peritoneal Dialysis Musculoskeletal Medical History: Reports Hx Arthritis Psychiatric Medical History: Denies: Hx Depression Past Surgical History: Reports: Hx Vascular Surgery - Left femoropopliteal bypass. Right artery stent. - Immunizations Hx Diphtheria, Pertussis, Tetanus Vaccination: No Hx Pneumococcal Vaccination: 02/20/13 Physical Exam - Vital signs Vitals: Temp Pulse Resp BP Pulse Ox 98.2 F 72 14 118/76 100 07/09/18 11:31 07/09/18 11:31 07/09/18 11:31 07/09/18 11:31 07/09/18 11:31 Course - Re-evaluation Re-evalutation: 07/09/18 11:44 Vitals reviewed. Nursing notes reviewed. Patient was at the wound center this morning where he follows for chronic wounds on his feet. He came from there and just had his dressings put on this morning. He has no complaint of fevers or increased pain with his feet. He states they have been healing well. For these reasons I am not going to remove the dressing that was placed this morning by wound management. Patient was given IV fluids and Toradol for pain control. 07/09/18 14:29 Patient was reevaluated and states he is feeling much better. His CT scan shows diverticuli with no diverticulitis however it was a noncontrast study. Patient does not have any ureterolithiasis or hydronephrosis. His urinalysis is negative for infection. Patient does have a leukocytosis of 21 with unknown origin. He is wheezing he had an x-ray was ordered to rule out underlying pneumonia. Patient is otherwise afebrile, eating and improving. Laboratory 07/09/18 07/09/18 07/09/18 11:27 11:27 12:21 WBC 21.6 H RBC 6.13 H Hgb 16.7 Hct 51.5 H MCV 84 MCH 27.2 MCHC 32.4 RDW 17.7 H Plt Count 310 Total Counted 100 Seg Neutrophils % Not Reportable Seg Neuts % (Manual) 92 H Lymphocytes % Not Reportable Lymphocytes % (Manual) 3 L Monocytes % Not Reportable Monocytes % (Manual) 5 Eosinophils % Not Reportable Eosinophils % (Manual) 0 Basophils % Not Reportable Basophils % (Manual) 0 Absolute Neutrophils Not Reportable Abs Neuts (Manual) 19.9 H Absolute Lymphocytes Not Reportable Abs Lymphs (Manual) 0.6 Absolute Monocytes Not Reportable Abs Monocytes (Manual) 1.1 Absolute Eosinophils Not Reportable Absolute Eos (Manual) 0.0 Absolute Basophils Not Reportable Abs Basophils (Manual) 0.0 Platelet Comment ADEQUATE Polychromasia SLIGHT Anisocytosis 2+ Sodium 139.0 Potassium 5.3 H Chloride 98 Carbon Dioxide 26 Anion Gap 15 BUN 29 H Creatinine 1.90 H Est GFR ( Amer) 44 L Est GFR (Non-Af Amer) 36 L Glucose 104 Calcium 10.3 H Urine Color YELLOW Urine Appearance SLIGHTLY-CLOUDY Urine pH 5.0 Ur Specific [place] 1.016 Urine Protein 100 H Urine Glucose (UA) 50 H Urine Ketones TRACE H Urine Blood SMALL H Urine Nitrite NEGATIVE Urine Bilirubin NEGATIVE Urine Urobilinogen NEGATIVE Ur Leukocyte Esterase NEGATIVE Urine WBC (Auto) 1 Urine RBC (Auto) 3 U Hyaline Cast (Auto) 12 Squamous Epi Cells Auto <1 Urine Mucus (Auto) RARE Urine Ascorbic Acid NEGATIVE 07/09/18 15:09 Patient's chest x-ray shows no acute process. He does have now some left lower quadrant tenderness on deep palpation. His leukocytosis and symptoms may be related to early diverticulitis that is not appearing on CT because of lack of contrast dye. Patient will be started on Augmentin and advised to follow closely with his primary care doctor. He was told to return if his pain increases or if he begins to develop fevers or chills. Patient in agreement with plan of care and stable at discharge. - Vital Signs Vital signs: Temp Pulse Resp BP Pulse Ox 98.2 F 72 14 118/76 100 07/09/18 11:31 07/09/18 11:31 07/09/18 11:31 07/09/18 11:31 07/09/18 11:31 - Laboratory Result Diagrams: 07/09/18 11:27 07/09/18 11:27 Laboratory results interpreted by me: 07/09/18 07/09/18 07/09/18 11:27 11:27 12:21 WBC 21.6 H RBC 6.13 H Hct 51.5 H RDW 17.7 H Seg Neuts % (Manual) 92 H Lymphocytes % (Manual) 3 L Abs Neuts (Manual) 19.9 H Potassium 5.3 H BUN 29 H Creatinine 1.90 H Est GFR ( Amer) 44 L Est GFR (Non-Af Amer) 36 L Calcium 10.3 H Urine Protein 100 H Urine Glucose (UA) 50 H Urine Ketones TRACE H Urine Blood SMALL H Discharge - Discharge Clinical Impression: Diverticulitis Leukocytosis Qualifiers: Leukocytosis type: unspecified Qualified Code(s): D72.829 - Elevated white blood cell count, unspecified Condition: Stable Disposition: HOME, SELF-CARE Instructions: Diverticulitis ([facility]) Additional Instructions: Please return to the emergency department if you have any worsening, or concern of your symptoms. Please return to the emergency department if you develop fevers, chest pain, difficulty breathing, severe abdominal pain, or ongoing vomiting. Please follow-up with your primary care physician in 1-2 days and any other recommended physicians. If prescribed, take all medications as directed. If you have any questions or concerns do not hesitate to return the emergency department for evaluation. [] Prescriptions: Amox Tr/Potassium Clavulanate [Augmentin 875-125 Tablet] 1 tab PO BID 10 Days tablet
[2018-07-09 12:01] LABS: ABSOLUTE LYMPHOCYTES# (MANUAL) 0.6 10^3/uL (0.5-4.7); ABSOLUTE MONOCYTES # (MANUAL) 1.1 10^3/uL (0.1-1.4); ABSOLUTE NEUTROPHILS# (MANUAL) 19.9 10^3/uL (1.7-8.2); ANISOCYTOSIS 2+; BASOPHILS % (MANUAL) 0 % (0-2); EOSINOPHILS % (MANUAL) 0 % (0-6); LYMPHOCYTES % (MANUAL) 3 % (13-45); MONOCYTES % (MANUAL) 5 % (3-13); PLATELET COMMENT ADEQUATE; POLYCHROMASIA SLIGHT; SEGMENTED NEUTROPHILS % (MAN) 92 % (42-78); TOTAL CELLS COUNTED 100
[2018-07-09 12:06] LABS: ANION GAP 15 (5-19); BLOOD UREA NITROGEN 29 mg/dL (7-20); CALCIUM 10.3 mg/dL (8.4-10.2); CARBON DIOXIDE 26 mmol/L (22-30); CHLORIDE 98 mmol/L (98-107); GLUCOSE 104 mg/dL (75-110); POTASSIUM 5.3 mmol/L (3.6-5.0)
--- NOTE | 2018-07-09 12:37 | RADIOLOGY REPORT (SQ) ---
EXAM DESCRIPTION: CT ABD/PELVIS NO ORAL OR IV COMPLETED DATE/TIME: 07/09/2018 12:00 pm REASON FOR STUDY: Left flank pain COMPARISON: None. TECHNIQUE: CT scan of the abdomen and pelvis performed without intravenous or oral contrast. Images reviewed with lung, soft tissue, and bone windows. Reconstructed coronal and sagittal MPR images revi ewed. All images stored on PACS. All CT scanners at this facility use dose modulation, iterative reconstruction, and/or weight based d osing when appropriate to reduce radiation dose to as low as reasonably achievable (ALARA). [facility]: Dose Right [facility]: CareDose [facility]: Dose Right [facility]: Teradose 4D [facility]: Smart INgrooves RADIATION DOSE: CT Rad equipment meets quality standard of care and radiation dose reduction techniq ues were employed. CTDIvol: 12.7 mGy. DLP: 696 mGy-cm.mGy. LIMITATIONS: None. FINDINGS: LOWER CHEST: No significant findings. No nodules or infiltrates. NON-CONTRASTED LIVER, SPLEEN, ADRENALS: Evaluation limited by lack of IV contrast. No identified sign ificant masses. PANCREAS: No masses. No peripancreatic inflammatory changes. GALLBLADDER: No identified stones by CT criteria. No inflammatory changes to suggest cholecystitis. RIGHT KIDNEY AND URETER: Right kidney atrophic, and 7 cm in greatest craniocaudad length with diffuse cortical thinning. 1.6 cm stone in the right lower pole kidney, 550 Hounsfield units. No hydroneph rosis or hydroureter. No right renal cysts or masses. LEFT KIDNEY AND URETER: No suspicious masses. Assessment limited by lack of IV contrast. No signifi cant calcifications. No hydronephrosis or hydroureter. AORTA AND RETROPERITONEUM: No aneurysm. No retroperitoneal masses or adenopathy. BOWEL AND PERITONEAL CAVITY: No obvious masses or inflammatory changes. No free fluid. Few colonic d iverticuli without CT signs of acute diverticulitis. APPENDIX: Normal. PELVIS, BLADDER, AND ABDOMINAL WALL:No abnormal masses. No free fluid. Bladder normal. BONES: No significant findings. OTHER: No other significant finding. IMPRESSION: No CT findings to explain history of left flank pain. Nonobstructive right lower pole 1.6 cm kidney stone COMMENT: Quality ID # [id number]: Final reports with documentation of one or more dose reduction techniques (e.g., Automated exposure control, adjustment of the mA and/or kV according to patient size, use of iterative reconstruction technique) TECHNICAL DOCUMENTATION: JOB ID: [id number] [employer]- All Rights Reserved Reading location - IP/workstation name: [email or web address]
[2018-07-09 12:49] LABS: APPEARANCE,URINE SLIGHTLY-CLOUDY; BILIRUBIN,URINE NEGATIVE (NEGATIVE); COLOR,URINE YELLOW; GLUCOSE, URINE 50 mg/dL (NEGATIVE); KETONES,URINE TRACE mg/dL (NEGATIVE); LEUKOCYTE ESTERASE,URINE NEGATIVE (NEGATIVE); NITRITE,URINE NEGATIVE (NEGATIVE); PROTEIN,URINE 100 mg/dL (NEGATIVE); URINE SPECIFIC GRAVITY 1.016; UROBILINOGEN,URINE NEGATIVE mg/dL (<2.0)
--- NOTE | 2018-07-09 14:39 | RADIOLOGY REPORT (SQ) ---
EXAM DESCRIPTION: CHEST SINGLE VIEW COMPLETED DATE/TIME: 07/09/2018 2:24 pm REASON FOR STUDY: cough COMPARISON: 05/14/2018 EXAM PARAMETERS: NUMBER OF VIEWS: One view. TECHNIQUE: Single frontal radiographic view of the chest acquired. RADIATION DOSE: NA LIMITATIONS: None. FINDINGS: LUNGS AND PLEURA: No opacities, masses or pneumothorax. No pleural effusion. MEDIASTINUM AND HILAR STRUCTURES: No masses. Contour normal. HEART AND VASCULAR STRUCTURES: Heart normal in size. Normal vasculature. BONES: No acute findings. HARDWARE: None in the chest. OTHER: No other significant finding. IMPRESSION: NO ACUTE RADIOGRAPHIC FINDING IN THE CHEST. TECHNICAL DOCUMENTATION: JOB ID: [id number] [employer]- All Rights Reserved Reading location - IP/workstation name: [email or web address]
[2018-07-09] MEDS ORDERED: AMOXICILLIN TR/POT CLAVULANATE 500-125 MG TAB PO ONE (15:03)
[2018-07-09 16:05] VITALS: BP 152/77
== END 2018-07-09 15:45 | disposition home or self-care (01) ==
LOC: ER 11:10
DX: K57.92 Diverticulitis of intestine, part unspecified, without perforation or abscess without bleeding (principal); D72.829 Elevated white blood cell count, unspecified; R11.0 Nausea; R10.9 Unspecified abdominal pain; I48.91 Unspecified atrial fibrillation; I25.10 Atherosclerotic heart disease of native coronary artery without angina pectoris; I25.2 Old myocardial infarction; I10 Essential (primary) hypertension; Z87.442 Personal history of urinary calculi
CPT/HCPCS: 99284; 96361; 96374; 36415; 85025; 80048; 81001; 71045; 74176; A9270; J1885; J7030

== ENCOUNTER → 2018-07-21 | Outpatient (CLI) | payer MEDICARE, MEDICAID ==
[2018-07-21 17:43] LABS: INTERNATIONAL RATION (INR) 1.98; PROTHROMBIN TIME 23.5 SEC (11.4-15.4)
== END ==
LOC: OD 16:37
PROVIDERS: ATTEND Specialist
DX: I25.10 Atherosclerotic heart disease of native coronary artery without angina pectoris (principal); I25.2 Old myocardial infarction; I48.2 Chronic atrial fibrillation; I73.9 Peripheral vascular disease, unspecified; E78.5 Hyperlipidemia, unspecified; I12.9 Hypertensive chronic kidney disease with stage 1 through stage 4 chronic kidney disease, or unspecified chronic kidney disease; N18.3 Chronic kidney disease, stage 3 (moderate); Z79.01 Long term (current) use of anticoagulants; F17.210 Nicotine dependence, cigarettes, uncomplicated; G45.9 Transient cerebral ischemic attack, unspecified; I34.0 Nonrheumatic mitral (valve) insufficiency; I36.1 Nonrheumatic tricuspid (valve) insufficiency; R01.1 Cardiac murmur, unspecified; R06.00 Dyspnea, unspecified; Z79.899 Other long term (current) drug therapy
CPT/HCPCS: 36415; 85610

== ENCOUNTER → 2018-08-14 | Outpatient (CLI) | payer MEDICARE, MEDICAID ==
[2018-08-14 16:11] LABS: HEMATOCRIT 44.6 % (37.9-51.0); HEMOGLOBIN 14.4 g/dL (13.5-17.0); MEAN CORPUSCULAR HEMOGLOBIN 26.8 pg (27.0-33.4); MEAN CORPUSCULAR HGB CONC 32.4 g/dL (32.0-36.0); MEAN CORPUSCULAR VOLUME 83 fl (80-97); PLATELET COUNT 239 10^3/uL (150-450); RED BLOOD COUNT 5.37 10^6/uL (4.35-5.55); RED CELL DISTRIBUTION WIDTH 18.1 % (11.5-14.0); WHITE BLOOD COUNT 10.8 10^3/uL (4.0-10.5)
[2018-08-14 16:21] LABS: APPEARANCE,URINE CLEAR; BILIRUBIN,URINE NEGATIVE (NEGATIVE); COLOR,URINE STRAW; GLUCOSE, URINE NEGATIVE (NEGATIVE); KETONES,URINE NEGATIVE (NEGATIVE); LEUKOCYTE ESTERASE,URINE NEGATIVE (NEGATIVE); NITRITE,URINE NEGATIVE (NEGATIVE); PROTEIN,URINE NEGATIVE (NEGATIVE); URINE SPECIFIC GRAVITY 1.008; UROBILINOGEN,URINE NEGATIVE mg/dL (<2.0)
[2018-08-14 16:28] LABS: INTERNATIONAL RATION (INR) 1.79; PROTHROMBIN TIME 21.7 SEC (11.4-15.4)
[2018-08-14 16:39] LABS: ANION GAP 9 (5-19); BLOOD UREA NITROGEN 22 mg/dL (7-20); CALCIUM 9.6 mg/dL (8.4-10.2); CARBON DIOXIDE 24 mmol/L (22-30); CHLORIDE 106 mmol/L (98-107); GLUCOSE 88 mg/dL (75-110); POTASSIUM 4.9 mmol/L (3.6-5.0); SODIUM 138.5 mmol/L (137-145)
== END ==
LOC: OD 14:54
PROVIDERS: ATTEND Internal Medicine
DX: I25.10 Atherosclerotic heart disease of native coronary artery without angina pectoris (principal); I25.2 Old myocardial infarction; I48.2 Chronic atrial fibrillation; E78.5 Hyperlipidemia, unspecified; N18.3 Chronic kidney disease, stage 3 (moderate); R80.9 Proteinuria, unspecified; E11.9 Type 2 diabetes mellitus without complications; I73.9 Peripheral vascular disease, unspecified; F17.210 Nicotine dependence, cigarettes, uncomplicated; G45.9 Transient cerebral ischemic attack, unspecified; I10 Essential (primary) hypertension; Z79.01 Long term (current) use of anticoagulants
CPT/HCPCS: 36415; 80048; 81001; 85027; 85610

== ENCOUNTER → 2018-08-27 | Outpatient (CLI) | payer MEDICARE, MEDICAID ==
[2018-08-27 11:19] LABS: INTERNATIONAL RATION (INR) 2.13; PROTHROMBIN TIME 24.8 SEC (11.4-15.4)
== END ==
LOC: OD 10:10
PROVIDERS: ATTEND Specialist
DX: I25.10 Atherosclerotic heart disease of native coronary artery without angina pectoris (principal); I48.2 Chronic atrial fibrillation; Z79.01 Long term (current) use of anticoagulants; I25.2 Old myocardial infarction; I73.9 Peripheral vascular disease, unspecified; E78.5 Hyperlipidemia, unspecified; F17.210 Nicotine dependence, cigarettes, uncomplicated; G45.9 Transient cerebral ischemic attack, unspecified; I12.9 Hypertensive chronic kidney disease with stage 1 through stage 4 chronic kidney disease, or unspecified chronic kidney disease; N18.3 Chronic kidney disease, stage 3 (moderate); I34.0 Nonrheumatic mitral (valve) insufficiency; I36.1 Nonrheumatic tricuspid (valve) insufficiency; R01.0 Benign and innocent cardiac murmurs; R06.00 Dyspnea, unspecified; Z79.899 Other long term (current) drug therapy
CPT/HCPCS: 36415; 85610

== ENCOUNTER → 2018-09-29 | Outpatient (CLI) | payer MEDICARE, MEDICAID ==
[2018-09-29 16:34] LABS: INTERNATIONAL RATION (INR) 1.82
== END ==
LOC: OD 15:19
PROVIDERS: ATTEND Specialist
DX: I48.2 Chronic atrial fibrillation (principal); I25.10 Atherosclerotic heart disease of native coronary artery without angina pectoris; I25.2 Old myocardial infarction; E78.5 Hyperlipidemia, unspecified; F17.210 Nicotine dependence, cigarettes, uncomplicated; G45.9 Transient cerebral ischemic attack, unspecified; I12.9 Hypertensive chronic kidney disease with stage 1 through stage 4 chronic kidney disease, or unspecified chronic kidney disease; N18.3 Chronic kidney disease, stage 3 (moderate); I34.0 Nonrheumatic mitral (valve) insufficiency; I36.1 Nonrheumatic tricuspid (valve) insufficiency; R01.1 Cardiac murmur, unspecified; Z79.01 Long term (current) use of anticoagulants; Z79.899 Other long term (current) drug therapy
CPT/HCPCS: 36415; 85610

== ENCOUNTER → 2018-10-20 | Outpatient (CLI) | payer MEDICARE, MEDICAID ==
[2018-10-20 15:52] LABS: INTERNATIONAL RATION (INR) 1.93
== END ==
LOC: OD 15:08
PROVIDERS: ATTEND Specialist
DX: I25.10 Atherosclerotic heart disease of native coronary artery without angina pectoris (principal); I12.9 Hypertensive chronic kidney disease with stage 1 through stage 4 chronic kidney disease, or unspecified chronic kidney disease; N18.3 Chronic kidney disease, stage 3 (moderate); I73.9 Peripheral vascular disease, unspecified; E78.5 Hyperlipidemia, unspecified; G45.9 Transient cerebral ischemic attack, unspecified; I34.0 Nonrheumatic mitral (valve) insufficiency; I48.2 Chronic atrial fibrillation; I25.2 Old myocardial infarction; F17.210 Nicotine dependence, cigarettes, uncomplicated; I36.1 Nonrheumatic tricuspid (valve) insufficiency; R01.1 Cardiac murmur, unspecified; R06.00 Dyspnea, unspecified; Z79.01 Long term (current) use of anticoagulants; E78.00 Pure hypercholesterolemia, unspecified; Z79.899 Other long term (current) drug therapy
CPT/HCPCS: 36415; 85610

== ENCOUNTER → 2018-11-03 | Outpatient (CLI) | payer MEDICARE, MEDICAID ==
[2018-11-03 15:54] LABS: PROTHROMBIN TIME 20.2 SEC (11.4-15.4)
== END ==
LOC: OD 15:16
PROVIDERS: ATTEND Specialist
DX: I25.10 Atherosclerotic heart disease of native coronary artery without angina pectoris (principal); I12.9 Hypertensive chronic kidney disease with stage 1 through stage 4 chronic kidney disease, or unspecified chronic kidney disease; N18.3 Chronic kidney disease, stage 3 (moderate); I73.9 Peripheral vascular disease, unspecified; E78.5 Hyperlipidemia, unspecified; I25.2 Old myocardial infarction; I48.2 Chronic atrial fibrillation; F17.210 Nicotine dependence, cigarettes, uncomplicated; G45.9 Transient cerebral ischemic attack, unspecified; R01.1 Cardiac murmur, unspecified; R06.00 Dyspnea, unspecified; Z79.01 Long term (current) use of anticoagulants; Z79.899 Other long term (current) drug therapy
CPT/HCPCS: 36415; 85610

== ENCOUNTER → 2019-01-04 | Outpatient (CLI) | payer MEDICARE, MEDICAID ==
[2019-01-04 09:35] LABS: INTERNATIONAL RATION (INR) 3.75
== END ==
LOC: OD 08:52
PROVIDERS: ATTEND Specialist
DX: I25.10 Atherosclerotic heart disease of native coronary artery without angina pectoris (principal); I25.2 Old myocardial infarction; I48.2 Chronic atrial fibrillation; I73.9 Peripheral vascular disease, unspecified; E78.5 Hyperlipidemia, unspecified; F17.210 Nicotine dependence, cigarettes, uncomplicated; G45.9 Transient cerebral ischemic attack, unspecified; I34.0 Nonrheumatic mitral (valve) insufficiency; I36.1 Nonrheumatic tricuspid (valve) insufficiency; I12.9 Hypertensive chronic kidney disease with stage 1 through stage 4 chronic kidney disease, or unspecified chronic kidney disease; N18.3 Chronic kidney disease, stage 3 (moderate); R01.1 Cardiac murmur, unspecified; R06.00 Dyspnea, unspecified; Z79.01 Long term (current) use of anticoagulants; Z79.899 Other long term (current) drug therapy
CPT/HCPCS: 36415; 85610

== ENCOUNTER → 2019-02-17 | Outpatient (CLI) | payer MEDICARE, MEDICAID ==
--- NOTE | 2019-02-17 12:49 | RADIOLOGY REPORT (SQ) ---
EXAM DESCRIPTION: FOOT RIGHT COMPLETE COMPLETED DATE/TIME: 02/17/2019 12:37 pm REASON FOR STUDY: PERIPHERAL VASCULAR DISEASE, UNSPECIFIED I73.9 PERIPHERAL VASCULAR DISEASE, UNSPE CIFIED N18.3 CHRONIC KIDNEY DISEASE, STAGE 3 (MODERATE) I25.2 OLD MYOCARDIAL INFARCTION COMPARISON: None. NUMBER OF VIEWS: Three views. TECHNIQUE: AP, lateral and oblique radiographic images acquired of the right foot. LIMITATIONS: None. FINDINGS: MINERALIZATION: Normal. BONES: No fracture dislocation. No osteomyelitis. There is prior resection of the head of the 4th m etatarsal. JOINTS: No effusions. SOFT TISSUES: No soft tissue swelling. No foreign body. OTHER: No other significant finding. IMPRESSION: NEGATIVE STUDY OF THE RIGHT FOOT. NO RADIOGRAPHIC EVIDENCE OF ACUTE INJURY. TECHNICAL DOCUMENTATION: JOB ID: [id number] [employer]- All Rights Reserved Reading location - IP/workstation name: [email or web address]
[2019-02-17 12:55] LABS: ABSOLUTE BASOPHILS # (AUTO) 0.1 10^3/uL (0.0-0.2); ABSOLUTE EOSINOPHILS # (AUTO) 0.1 10^3/uL (0.0-0.6); ABSOLUTE LYMPHOCYTES (AUTO) 2.4 10^3/uL (0.5-4.7); ABSOLUTE MONOCYTES (AUTO) 0.8 10^3/uL (0.1-1.4); ABSOLUTE NEUT (AUTO) 7.7 10^3/uL (1.7-8.2); APPEARANCE,URINE SLIGHTLY-CLOUDY; BASOPHILS % (AUTO) 0.5 % (0-2); BILIRUBIN,URINE NEGATIVE (NEGATIVE); COLOR,URINE AMBER; EOSINOPHILS % (AUTO) 0.9 % (0-6); GLUCOSE, URINE 150 mg/dL (NEGATIVE); HEMATOCRIT 52.3 % (37.9-51.0); HEMOGLOBIN 17.5 g/dL (13.5-17.0); KETONES,URINE NEGATIVE (NEGATIVE); LEUKOCYTE ESTERASE,URINE NEGATIVE (NEGATIVE); LYMPHOCYTES % (AUTO) 21.5 % (13-45); MEAN CORPUSCULAR HEMOGLOBIN 30.7 pg (27.0-33.4); MEAN CORPUSCULAR HGB CONC 33.5 g/dL (32.0-36.0); MEAN CORPUSCULAR VOLUME 92 fl (80-97); MONOCYTES % (AUTO) 7.1 % (3-13); NITRITE,URINE NEGATIVE (NEGATIVE); PLATELET COUNT 231 10^3/uL (150-450); PROTEIN,URINE >=500 mg/dL (NEGATIVE); RED BLOOD COUNT 5.71 10^6/uL (4.35-5.55); RED CELL DISTRIBUTION WIDTH 15.7 % (11.5-14.0); TOTAL CELLS COUNTED % (AUTO) 100 %; URINE SPECIFIC GRAVITY 1.024
[2019-02-17 13:01] LABS: HEMATOCRIT 52.3 % (37.9-51.0); HEMOGLOBIN 17.5 g/dL (13.5-17.0); MEAN CORPUSCULAR HEMOGLOBIN 30.7 pg (27.0-33.4); MEAN CORPUSCULAR HGB CONC 33.5 g/dL (32.0-36.0); MEAN CORPUSCULAR VOLUME 92 fl (80-97); PLATELET COUNT 231 10^3/uL (150-450); RED BLOOD COUNT 5.71 10^6/uL (4.35-5.55); RED CELL DISTRIBUTION WIDTH 15.7 % (11.5-14.0)
[2019-02-17 13:23] LABS: ALBUMIN 4.4 g/dL (3.5-5.0); ALKALINE PHOSPHATASE 135 U/L (38-126); ANION GAP 13 (5-19); ASPARTATE AMINO TRANSFERASE 26 U/L (17-59); BILIRUBIN,DIRECT 0.3 mg/dL (0.0-0.4); BILIRUBIN,TOTAL 0.9 mg/dL (0.2-1.3); BLOOD UREA NITROGEN 23 mg/dL (7-20); CALCIUM 9.5 mg/dL (8.4-10.2); CARBON DIOXIDE 28 mmol/L (22-30); CHLORIDE 99 mmol/L (98-107); GLUCOSE 113 mg/dL (75-110); POTASSIUM 4.2 mmol/L (3.6-5.0); TOTAL PROTEIN 8.2 g/dL (6.3-8.2)
[2019-02-17 13:24] LABS: ANION GAP 13 (5-19); BLOOD UREA NITROGEN 23 mg/dL (7-20); CALCIUM 9.5 mg/dL (8.4-10.2); CARBON DIOXIDE 28 mmol/L (22-30); CHLORIDE 99 mmol/L (98-107); GLUCOSE 113 mg/dL (75-110); POTASSIUM 4.2 mmol/L (3.6-5.0)
[2019-02-17 13:50] LABS: ERYTHROCYTE SEDIMENTATION RATE 20 mm/hr (0-20)
[2019-02-19 14:52] LABS: INTERNATIONAL RATION (INR) 3.23; PROTHROMBIN TIME 33.7 SEC (11.4-15.4)
== END ==
LOC: WC 11:54
PROVIDERS: ATTEND Internal Medicine Nephrology
DX: I73.9 Peripheral vascular disease, unspecified (principal); L97.512 Non-pressure chronic ulcer of other part of right foot with fat layer exposed; I12.9 Hypertensive chronic kidney disease with stage 1 through stage 4 chronic kidney disease, or unspecified chronic kidney disease; N18.3 Chronic kidney disease, stage 3 (moderate); R80.9 Proteinuria, unspecified; I25.10 Atherosclerotic heart disease of native coronary artery without angina pectoris; E78.5 Hyperlipidemia, unspecified; I34.0 Nonrheumatic mitral (valve) insufficiency; I36.1 Nonrheumatic tricuspid (valve) insufficiency; R01.0 Benign and innocent cardiac murmurs; R06.00 Dyspnea, unspecified; I48.20 Chronic atrial fibrillation, unspecified; Z79.01 Long term (current) use of anticoagulants; G45.9 Transient cerebral ischemic attack, unspecified; I25.2 Old myocardial infarction; Z79.899 Other long term (current) drug therapy
CPT/HCPCS: 36415; 80048; 81001; 85027; 85610; 85652; 86140; 87070

== ENCOUNTER → 2019-02-26 | Outpatient (CLI) | payer MEDICARE, MEDICAID ==
[2019-02-26 16:41] LABS: INTERNATIONAL RATION (INR) 2.35; PROTHROMBIN TIME 26.2 SEC (11.4-15.4)
[2019-02-26 16:46] LABS: APPEARANCE,URINE CLEAR; BILIRUBIN,URINE NEGATIVE (NEGATIVE); COLOR,URINE YELLOW; GLUCOSE, URINE >=500 mg/dL (NEGATIVE); KETONES,URINE NEGATIVE (NEGATIVE); LEUKOCYTE ESTERASE,URINE NEGATIVE (NEGATIVE); NITRITE,URINE NEGATIVE (NEGATIVE); PROTEIN,URINE 100 mg/dL (NEGATIVE); URINE SPECIFIC GRAVITY 1.009; UROBILINOGEN,URINE NEGATIVE mg/dL (<2.0)
== END ==
LOC: OD 15:19
PROVIDERS: ATTEND Specialist
DX: I12.9 Hypertensive chronic kidney disease with stage 1 through stage 4 chronic kidney disease, or unspecified chronic kidney disease (principal); N18.3 Chronic kidney disease, stage 3 (moderate); R31.9 Hematuria, unspecified
CPT/HCPCS: 36415; 81001; 85610

== ENCOUNTER → 2019-03-10 | Outpatient (CLI) | payer MEDICARE, MEDICAID ==
[2019-03-10 17:26] LABS: INTERNATIONAL RATION (INR) 1.86; PROTHROMBIN TIME 21.7 SEC (11.4-15.4)
== END ==
LOC: OD 15:16
PROVIDERS: ATTEND Specialist
DX: I48.20 Chronic atrial fibrillation, unspecified (principal); I73.9 Peripheral vascular disease, unspecified; E78.5 Hyperlipidemia, unspecified; I12.9 Hypertensive chronic kidney disease with stage 1 through stage 4 chronic kidney disease, or unspecified chronic kidney disease; N18.3 Chronic kidney disease, stage 3 (moderate); Z79.01 Long term (current) use of anticoagulants; G45.9 Transient cerebral ischemic attack, unspecified; I34.0 Nonrheumatic mitral (valve) insufficiency; I36.1 Nonrheumatic tricuspid (valve) insufficiency; R01.1 Cardiac murmur, unspecified; R06.00 Dyspnea, unspecified; Z79.899 Other long term (current) drug therapy
CPT/HCPCS: 36415; 85610

== ENCOUNTER → 2019-03-10 | Outpatient (CLI) | payer MEDICARE, MEDICAID ==
--- NOTE | 2019-03-10 16:42 | RADIOLOGY REPORT (SQ) ---
EXAM DESCRIPTION: FOOT RIGHT COMPLETE COMPLETED DATE/TIME: 03/10/2019 3:43 pm REASON FOR STUDY: NON-PRS CHRONIC ULCER OTH PRT RIGHT FOOT W FAT LAYER EXPOSED L97.512 NON-PRS INSOLE AND HEEL STIFFENER STEPHAN ULCER OTH PRT RIGHT FOOT W FAT LAYER I73.9 PERIPHERAL VASCULAR DISEASE, UNSPECIFIED COMPARISON: 02/17/2019 NUMBER OF VIEWS: Three views. TECHNIQUE: AP, lateral and oblique radiographic images acquired of the right foot. LIMITATIONS: None. FINDINGS: MINERALIZATION: As below BONES: There is increased cortical lucency and destructive changes involving the distal 3rd metatarsa l and proximal 3rd phalanx. Additional increased lucency about the proximal and mid 4th phalanges wi thout discrete cortical disruption. Postsurgical changes from the distal 4th metatarsal resection. Unchanged clawtoe deformity at the 4th and 5th digits. JOINTS: No dislocation SOFT TISSUES: Soft tissue swelling about the lateral forefoot. OTHER: No other significant finding. IMPRESSION: Increased cortical lucency and destructive changes involving the distal 3rd metatarsal a nd proximal 3rd phalanx most compatible with osteomyelitis. Additional increased lucency at the 4th proximal and mid phalanges without discrete cortical destructive change also worrisome for osteomyeli tis. Postsurgical chronic changes as above. TECHNICAL DOCUMENTATION: JOB ID: [id number] [employer]- All Rights Reserved Reading location - IP/workstation name: [email or web address]
[2019-03-10 17:19] LABS: ABSOLUTE BASOPHILS # (AUTO) 0.1 10^3/uL (0.0-0.2); ABSOLUTE EOSINOPHILS # (AUTO) 0.1 10^3/uL (0.0-0.6); ABSOLUTE LYMPHOCYTES (AUTO) 2.7 10^3/uL (0.5-4.7); ABSOLUTE MONOCYTES (AUTO) 0.8 10^3/uL (0.1-1.4); ABSOLUTE NEUT (AUTO) 9.2 10^3/uL (1.7-8.2); BASOPHILS % (AUTO) 0.5 % (0-2); EOSINOPHILS % (AUTO) 1.1 % (0-6); HEMATOCRIT 47.3 % (37.9-51.0); HEMOGLOBIN 15.4 g/dL (13.5-17.0); MEAN CORPUSCULAR HEMOGLOBIN 29.7 pg (27.0-33.4); MEAN CORPUSCULAR HGB CONC 32.6 g/dL (32.0-36.0); MEAN CORPUSCULAR VOLUME 91 fl (80-97); MONOCYTES % (AUTO) 6.1 % (3-13); PLATELET COUNT 452 10^3/uL (150-450); RED CELL DISTRIBUTION WIDTH 15.2 % (11.5-14.0); SEGMENTED NEUTROPHILS % (AUTO) 71.3 % (42-78); TOTAL CELLS COUNTED % (AUTO) 100 %; WHITE BLOOD COUNT 12.9 10^3/uL (4.0-10.5)
[2019-03-10 17:38] LABS: ALBUMIN 3.9 g/dL (3.5-5.0); ALKALINE PHOSPHATASE 133 U/L (38-126); ANION GAP 16 (5-19); ASPARTATE AMINO TRANSFERASE 29 U/L (17-59); BILIRUBIN,DIRECT 0.3 mg/dL (0.0-0.4); BILIRUBIN,TOTAL 0.7 mg/dL (0.2-1.3); BLOOD UREA NITROGEN 21 mg/dL (7-20); C-REACTIVE PROTEIN 54.2 mg/L (<10.0); CALCIUM 9.3 mg/dL (8.4-10.2); CARBON DIOXIDE 24 mmol/L (22-30); CHLORIDE 101 mmol/L (98-107); GLUCOSE 91 mg/dL (75-110); POTASSIUM 4.6 mmol/L (3.6-5.0); TOTAL PROTEIN 7.7 g/dL (6.3-8.2)
[2019-03-10 18:02] LABS: ERYTHROCYTE SEDIMENTATION RATE 79 mm/hr (0-20)
== END ==
LOC: WC 15:20
PROVIDERS: ATTEND Preventive Medicine Undersea and Hyperbaric Medicine
DX: I73.9 Peripheral vascular disease, unspecified (principal); L97.512 Non-pressure chronic ulcer of other part of right foot with fat layer exposed; Q66.89 Other specified congenital deformities of feet
CPT/HCPCS: 36415; 80053; 85025; 85652; 86140

== ENCOUNTER 2019-03-11 14:42 | Inpatient (IN) | payer MEDICARE, MEDICAID ==
--- NOTE | 2019-03-11 15:26 | ER Document Report ---
ED Medical Screen (RME) - General Chief Complaint: Wound Recheck Stated Complaint: WOUND CHECK Time Seen by Provider: 03/11/19 15:24 Primary Care Provider: NILE DOMINGO DPM [Primary Care Provider] - Follow up as needed Mode of Arrival: Ambulatory Information source: Patient Notes: 63-year-old male presented to ED for positive wound cultures from his right foot to be worked up for osteomyelitis by Dr. Domingo. He is seen at the [facility] and that is why Dr. Domingo saw. He denies any fevers. Patient states that the doctor did a in office wound culture of the foot and that is with these results are of. Patient states there was also a x-ray of the foot taken that should be in our system. Will get further blood work and have him seen in the emergency room by another provider. I have greeted and performed a rapid initial assessment of this patient. A comprehensive ED assessment and evaluation of the patient, analysis of test results and completion of medical decision making process will be conducted by an additional ED providers. TRAVEL OUTSIDE OF THE [place] IN LAST 30 DAYS: No - Related Data Allergies/Adverse Reactions: No Known Allergies Allergy (Verified 03/11/19 15:14) Past Medical History - Past Medical History Cardiac Medical History: Reports: Hx Atrial Fibrillation, Hx Coronary Artery Disease, Hx Heart Attack, Hx Hypertension, Hx Peripheral Vascular Disease Pulmonary Medical History: Denies: Hx Asthma, Hx Bronchitis, Hx COPD, Hx Pneumonia Neurological Medical History: Denies: Hx Cerebrovascular Accident, Hx Seizures Renal/ Medical History: Denies: Hx Peritoneal Dialysis Musculoskeltal Medical History: Reports Hx Arthritis Psychiatric Medical History: Denies: Hx Depression Past Surgical History: Reports: Hx Vascular Surgery - Left femoropopliteal bypass. Right artery stent. - Immunizations Hx Diphtheria, Pertussis, Tetanus Vaccination: No Physical Exam - Vital signs Vitals: Temp Pulse Resp BP Pulse Ox 97.4 F 79 16 151/86 H 100 03/11/19 14:48 03/11/19 14:48 03/11/19 14:48 03/11/19 14:48 03/11/19 14:48 Course - Vital Signs Vital signs: Temp Pulse Resp BP Pulse Ox 97.4 F 79 16 151/86 H 100 03/11/19 14:48 03/11/19 14:48 03/11/19 14:48 03/11/19 14:48 03/11/19 14:48 Doctor's Discharge - Discharge Referrals: NILE DOMINGO DPM [Primary Care Provider] - Follow up as needed
[2019-03-11 16:51] LABS: ABSOLUTE BASOPHILS # (AUTO) 0.1 10^3/uL (0.0-0.2); ABSOLUTE EOSINOPHILS # (AUTO) 0.1 10^3/uL (0.0-0.6); ABSOLUTE LYMPHOCYTES (AUTO) 2.7 10^3/uL (0.5-4.7); ABSOLUTE MONOCYTES (AUTO) 0.9 10^3/uL (0.1-1.4); ABSOLUTE NEUT (AUTO) 11.6 10^3/uL (1.7-8.2); BASOPHILS % (AUTO) 0.6 % (0-2); EOSINOPHILS % (AUTO) 0.7 % (0-6); HEMATOCRIT 47.8 % (37.9-51.0); LYMPHOCYTES % (AUTO) 17.5 % (13-45); MEAN CORPUSCULAR HEMOGLOBIN 30.4 pg (27.0-33.4); MEAN CORPUSCULAR HGB CONC 33.4 g/dL (32.0-36.0); MEAN CORPUSCULAR VOLUME 91 fl (80-97); MONOCYTES % (AUTO) 5.6 % (3-13); PLATELET COUNT 433 10^3/uL (150-450); RED BLOOD COUNT 5.25 10^6/uL (4.35-5.55); RED CELL DISTRIBUTION WIDTH 15.1 % (11.5-14.0); SEGMENTED NEUTROPHILS % (AUTO) 75.6 % (42-78); TOTAL CELLS COUNTED % (AUTO) 100 %; WHITE BLOOD COUNT 15.4 10^3/uL (4.0-10.5)
[2019-03-11 17:32] LABS: ALBUMIN 3.9 g/dL (3.5-5.0); ALKALINE PHOSPHATASE 137 U/L (38-126); ANION GAP 15 (5-19); ASPARTATE AMINO TRANSFERASE 27 U/L (17-59); BILIRUBIN,DIRECT 0.3 mg/dL (0.0-0.4); BILIRUBIN,TOTAL 0.7 mg/dL (0.2-1.3); BLOOD UREA NITROGEN 28 mg/dL (7-20); CALCIUM 9.5 mg/dL (8.4-10.2); CARBON DIOXIDE 23 mmol/L (22-30); CHLORIDE 102 mmol/L (98-107); GLUCOSE 90 mg/dL (75-110); POTASSIUM 4.6 mmol/L (3.6-5.0); TOTAL PROTEIN 7.7 g/dL (6.3-8.2)
[2019-03-11 20:08] LABS: APPEARANCE,URINE CLOUDY; BILIRUBIN,URINE NEGATIVE (NEGATIVE); COLOR,URINE AMBER; GLUCOSE, URINE NEGATIVE (NEGATIVE); KETONES,URINE NEGATIVE (NEGATIVE); PROTEIN,URINE 100 mg/dL (NEGATIVE); URINE SPECIFIC GRAVITY 1.024; UROBILINOGEN,URINE NEGATIVE mg/dL (<2.0)
--- NOTE | 2019-03-11 22:54 | ER Document Report ---
ED Wound - General Chief Complaint: Wound Infection Stated Complaint: WOUND CHECK Time Seen by Provider: 03/11/19 15:24 Primary Care Provider: NILE ORO DPM [ACTIVE STAFF] - Follow up as needed Mode of Arrival: Ambulatory Information source: Patient Notes: Patient is a 63-year-old male presenting to the emergency department chief complaint of right foot wound. Patient reports wound to the bottom of his right foot, states he is seen at wound care and was referred here today due to abnormal labs and abnormal x-ray. Patient denies any fevers or chills. He st ates he is otherwise feeling well. TRAVEL OUTSIDE OF THE [place] IN LAST 30 DAYS: No - Related Data Allergies/Adverse Reactions: No Known Allergies Allergy (Verified 03/11/19 15:14) Home Medications: [facility], [address] Past Medical History - General Information source: Patient - Social History Smoking Status: Current Some Day Smoker Chew tobacco use (# tins/day): No Frequency of alcohol use: Occasional Drug Abuse: Marijuana Family History: Reviewed & Not Pertinent Patient has suicidal ideation: No Patient has homicidal ideation: No - Past Medical History Cardiac Medical History: Reports: Hx Atrial Fibrillation, Hx Coronary Artery Disease, Hx Heart Attack, Hx Hypertension, Hx Peripheral Vascular Disease Pulmonary Medical History: Denies: Hx Asthma, Hx Bronchitis, Hx COPD, Hx Pneumonia Neurological Medical History: Denies: Hx Cerebrovascular Accident, Hx Seizures Renal/ Medical History: Denies: Hx Peritoneal Dialysis Musculoskeletal Medical History: Reports Hx Arthritis Psychiatric Medical History: Denies: Hx Depression Past Surgical History: Reports: Hx Vascular Surgery - Left femoropopliteal bypass. Right artery stent. - Immunizations Hx Diphtheria, Pertussis, Tetanus Vaccination: No Hx Pneumococcal Vaccination: 02/20/13 Review of Systems - Review of Systems Constitutional: No symptoms reported EENT: No symptoms reported Cardiovascular: No symptoms reported Respiratory: No symptoms reported Gastrointestinal: No symptoms reported Genitourinary: No symptoms reported Male Genitourinary: No symptoms reported Musculoskeletal: See HPI Skin: See HPI Hematologic/Lymphatic: No symptoms reported Neurological/Psychological: No symptoms reported Physical Exam - Vital signs Vitals: Temp Pulse Resp BP Pulse Ox 97.4 F 79 16 151/86 H 100 03/11/19 14:48 03/11/19 14:48 03/11/19 14:48 03/11/19 14:48 03/11/19 14:48 - Notes Notes: PHYSICAL EXAMINATION: GENERAL: Well-appearing, well-nourished and in no acute distress. HEAD: Atraumatic, normocephalic. EYES: Pupils equal round and reactive to light, extraocular movements intact, sclera anicteric, conjunctiva are normal. ENT: Nares patent, oropharynx clear without exudates. Moist mucous membranes. NECK: Normal range of motion, supple without lymphadenopathy LUNGS: Breath sounds clear to auscultation bilaterally and equal. No wheezes rales or rhonchi. HEART: Regular rate and rhythm without murmurs ABDOMEN: Soft, nontender, nondistended abdomen. No guarding, no rebound. No masses appreciated. Musculoskeletal: Normal range of motion, no pitting or edema. No cyanosis. Foot wound see below. Wound noted to NEUROLOGICAL: Cranial nerves grossly intact. Normal speech. Normal sensory, motor exams PSYCH: Normal mood, normal affect. SKIN: Ulceration at Base of right foot near the third through fifth digits. Discharge from Course - Re-evaluation Re-evalutation: 03/11/19 22:59 Laboratory 03/11/19 03/11/19 03/11/19 16:28 16:28 16:28 WBC 15.4 H RBC 5.25 Hgb 16.0 Hct 47.8 MCV 91 MCH 30.4 MCHC 33.4 RDW 15.1 H Plt Count 433 Lymph % (Auto) 17.5 [place] % (Auto) 5.6 Eos % (Auto) 0.7 Baso % (Auto) 0.6 Absolute Neuts (auto) 11.6 H Absolute Lymphs (auto) 2.7 Absolute Monos (auto) 0.9 Absolute Eos (auto) 0.1 Absolute Basos (auto) 0.1 Seg Neutrophils % 75.6 Sodium 139.5 Potassium 4.6 Chloride 102 Carbon Dioxide 23 Anion Gap 15 BUN 28 H Creatinine 2.04 H Est GFR ( Amer) 40 L Est GFR (MDRD) Non-Af 33 L Glucose 90 Lactic Acid 2.3 H Calcium 9.5 Total Bilirubin 0.7 Direct Bilirubin 0.3 Neonat Total Bilirubin Not Reportable Neonat Direct Bilirubin Not Reportable Neonat Indirect Bili Not Reportable AST 27 ALT 19 Alkaline Phosphatase 137 H Total Protein 7.7 Albumin 3.9 Urine Color Urine Appearance Urine pH Ur Specific [place] Urine Protein Urine Glucose (UA) Urine Ketones Urine Blood Urine Nitrite (Reflex) Urine Bilirubin Urine Urobilinogen Leukocyte Esterase Rfl Urine RBC (Auto) U Hyaline Cast (Auto) Urine WBC (Reflex) Urine Mucus (Auto) Urine Ascorbic Acid 03/11/19 19:30 WBC RBC Hgb Hct MCV MCH MCHC RDW Plt Count Lymph % (Auto) [place] % (Auto) Eos % (Auto) Baso % (Auto) Absolute Neuts (auto) Absolute Lymphs (auto) Absolute Monos (auto) Absolute Eos (auto) Absolute Basos (auto) Seg Neutrophils % Sodium Potassium Chloride Carbon Dioxide Anion Gap BUN Creatinine Est GFR ( Amer) Est GFR (MDRD) Non-Af Glucose Lactic Acid Calcium Total Bilirubin Direct Bilirubin Neonat Total Bilirubin Neonat Direct Bilirubin Neonat Indirect Bili AST ALT Alkaline Phosphatase Total Protein Albumin Urine Color CHRIS Urine Appearance CLOUDY Urine pH 5.0 Ur Specific [place] 1.024 Urine Protein 100 H Urine Glucose (UA) NEGATIVE Urine Ketones NEGATIVE Urine Blood NEGATIVE Urine Nitrite (Reflex) NEGATIVE Urine Bilirubin NEGATIVE Urine Urobilinogen NEGATIVE Leukocyte Esterase Rfl NEGATIVE Urine RBC (Auto) 2 U Hyaline Cast (Auto) 16 Urine WBC (Reflex) 1 Urine Mucus (Auto) FEW Urine Ascorbic Acid NEGATIVE Patient x-ray shows osteomyelitis to right foot. Consulted hospitalist, patient accepted for full admission. - Vital Signs Vital signs: Temp Pulse Resp BP Pulse Ox 98.2 F 68 17 155/93 H 100 03/11/19 20:08 03/11/19 20:08 03/11/19 20:08 03/11/19 20:08 03/11/19 20:08 - Laboratory Result Diagrams: 03/11/19 16:28 03/11/19 16:28 Laboratory results interpreted by me: 03/11/19 03/11/19 03/11/19 16:28 16:28 16:28 WBC 15.4 H RDW 15.1 H Absolute Neuts (auto) 11.6 H BUN 28 H Creatinine 2.04 H Est GFR ( Amer) 40 L Est GFR (MDRD) Non-Af 33 L Lactic Acid 2.3 H Alkaline Phosphatase 137 H Urine Protein 03/11/19 19:30 WBC RDW Absolute Neuts (auto) BUN Creatinine Est GFR ( Amer) Est GFR (MDRD) Non-Af Lactic Acid Alkaline Phosphatase Urine Protein 100 H Discharge - Discharge Clinical Impression: Wound of foot Osteomyelitis Qualifiers: Osteomyelitis type: unspecified type Osteomyelitis location: unspecified site Qualified Code(s): M86.9 - Osteomyelitis, unspecified Condition: Stable Disposition: ADMITTED INPATIENT Admitting Provider: Blessing (Hospitalist) Unit Admitted: Medical Floor Referrals: NILE ORO DPM [ACTIVE STAFF] - Follow up as needed
[2019-03-11] MEDS ORDERED: MAGNESIUM HYDROXIDE SUSP 30 ML UDCUP PO PRN (23:56)
[2019-03-11] MEDS ORDERED: DEXTROSE 50%-WATER 25 GM/50 ML DISP.SYRIN IV PRN ×2 (23:56)
[2019-03-11] MEDS ORDERED: DEXTROSE 40% GEL 15 GM TUBE PO PRN ×2 (23:56)
[2019-03-11] MEDS ORDERED: ONDANSETRON HCL INJ/PF 4 MG/2 ML SDV IV PRN (23:56)
[2019-03-11] MEDS ORDERED: GLUCAGON,HUMAN RECOMB 1 MG INJ SUBCUT PRN (23:56)
[2019-03-11] MEDS ORDERED: TEMAZEPAM 15 MG CAPSULE PO PRN (23:56)
[2019-03-11] MEDS ORDERED: MAG HYDROX/AL HYDROX/SIMETH SUSP 30 ML UDCUP PO PRN (23:56)
[2019-03-12] MEDS ORDERED: LEVALBUTEROL HCL NEB 0.63 MG/3 ML AMPUL NEB PRN (00:03)
[2019-03-12] MEDS ORDERED: ACETAMINOPHEN 650 MG SUPP.RECT PR PRN (00:03)
[2019-03-12] MEDS ORDERED: NICOTINE 21 MG/24 HR PATCH.TD24 TD PRN (00:03)
[2019-03-12] MEDS ORDERED: ACETAMINOPHEN 325 MG TABLET PO PRN (00:03)
[2019-03-12] MEDS ORDERED: LINEZOLID 600 MG/300 ML RTUPB IV ONE ×2 (01:15→01:51)
[2019-03-12] MEDS: DEXTROSE 5%-LACTATED RINGERS 1,000 ML IV PRN ×3 (01:52→22:58)
[2019-03-12] MEDS: NALBUPHINE HCL INJ 10 MG/1 ML AMPULE IV PRN ×2 (01:53→20:01)
[2019-03-12] MEDS ORDERED: MEROPENEM 1 GM VIAL IV ONE (02:00)
[2019-03-12] MEDS: HEPARIN SOD (PORCINE) 5,000 UNIT/ML 1 ML VIAL SUBCUT SCH ×3 (06:03→21:43)
[2019-03-12] MEDS: PANTOPRAZOLE SODIUM 40 MG TABLET.DR PO SCH ×2 (06:03→18:05)
[2019-03-12 06:49] LABS: MEAN CORPUSCULAR VOLUME 90 fl (80-97)
[2019-03-12 06:56] LABS: HEMATOCRIT 41.9 % (37.9-51.0); HEMOGLOBIN 14.1 g/dL (13.5-17.0); MEAN CORPUSCULAR HEMOGLOBIN 30.3 pg (27.0-33.4); MEAN CORPUSCULAR HGB CONC 33.7 g/dL (32.0-36.0); PLATELET COUNT 315 10^3/uL (150-450); RED BLOOD COUNT 4.65 10^6/uL (4.35-5.55); RED CELL DISTRIBUTION WIDTH 15.1 % (11.5-14.0); WHITE BLOOD COUNT 11.3 10^3/uL (4.0-10.5)
[2019-03-12 07:56] LABS: ANION GAP 10 (5-19); BLOOD UREA NITROGEN 32 mg/dL (7-20); CALCIUM 8.4 mg/dL (8.4-10.2); CARBON DIOXIDE 24 mmol/L (22-30); CHLORIDE 104 mmol/L (98-107); GLUCOSE 96 mg/dL (75-110); POTASSIUM 4.1 mmol/L (3.6-5.0)
[2019-03-12] MEDS: IPRATROPIUM BROMIDE 0.02% NEB 0.5 MG/2.5 ML AMPUL NEB SCH ×3 (08:12→23:30)
[2019-03-12] MEDS: BUDESONIDE NEB 0.5 MG/2 ML AMPUL NEB SCH ×2 (08:12→20:33)
[2019-03-12] MEDS: LEVALBUTEROL HCL NEB 1.25 MG/3 ML AMPUL NEB SCH ×3 (08:12→23:30)
[2019-03-12 08:46] LABS: INTERNATIONAL RATION (INR) 2.83; PROTHROMBIN TIME 30.3 SEC (11.4-15.4)
--- NOTE | 2019-03-12 08:52 | PDOC CONSULTATION ---
Consultation Consult Date: 03/12/19 Provider Consulted: PINO BARKER Consult reason:: Chronic wound with osteomyelitis of the right third metatarsal head History of Present Illness Admission Date/PCP: 03/11/19 23:27 RIMA REIS DO History of Present Illness: FRANCIE RUVALCABA is a 63 year old male with known peripheral vascular disease post left leg bypass in the right femoral stent place about 2 years ago. He developed abscess along the right foot which was drained in the wound care cent er about 6 months ago. He had an x-ray of the right foot on 03/10/2019 which showed osteomyelitis of the right third metatarsal head area. He has also chronic wound opposite the third metatarsal bone on the foot. He saw his vascular surgeon about a year ago and told him that the stent area is open. He is not a diabetic. However he smokes about a pack every 3 days. He has atrial fibrillation and taking Coumadin which he last took about 36 hours ago. He denies any fever nor chills. Past Medical History Cardiac Medical History: Reports: Atrial Fibrillation, Coronary Artery Disease, Myocardial Infarction, Hypertension, Peripheral Vascular Disease Pulmonary Medical History: Denies: Asthma, Bronchitis, Chronic Obstructive Pulmonary Disease (COPD), Pneumonia EENT Medical History: Denies: Cataracts, Ears - Hearing aids Neurological Medical History: Denies: Hemorrhagic CVA, Ischemic CVA, Seizures Endocrine Medical History: Reports: Obesity Denies: Diabetes Mellitus Type 1, Diabetes Mellitus Type 2, Hyperthyroidism, Hypothyroidism Renal/ Medical History: Reports: Chronic Kidney Disease Denies: Nephrolithiasis Malignancy Medical History: Reports: None GI Medical History: Denies: Cirrhosis, Hepatitis Musculoskeltal Medical History: Reports: Arthritis Denies: Gout Skin Medical History: Denies: Eczema, Psoriasis Psychiatric Medical History: Reports: Substance Abuse, Tobacco Dependency Denies: Alcohol Dependency, Depression Traumatic Medical History: Reports: None Hematology: Denies: Anemia, Bleeding Tendencies Infectious Medical History: Reports: None Past Surgical History Past Surgical History: Reports: Vascular Surgery - Left femoropopliteal bypass. Prior arterial vascular stenting. Social History Smoking Status: Current Every Day Smoker Cigarettes Packs Per Day: 0.5 Electronic Cigarette use?: No Frequency of Alcohol Use: Occasional Hx Recreational Drug Use: Yes - in past Drugs: Cocaine Hx Prescription Drug Abuse: No - Advance Directive Resuscitation Status: Full Code Family History Family History: CAD, Malignancy Parental Family History Reviewed: Yes Children Family History Reviewed: No Sibling(s) Family History Reviewed.: No Medication/Allergy Home Medications: Acetaminophen with Codeine [Tylenol with Codeine #3 Tablet] 1 tab PO Q6HP PRN 05/14/18 Atorvastatin Calcium [Lipitor 40 mg Tablet] 40 mg PO QHS 05/14/18 Furosemide [Lasix] 20 mg PO DAILY 05/14/18 Nifedipine [Nifedipine ER] 30 mg PO QHS 05/14/18 Tramadol HCl [Ultram 50 mg Tablet] 50 mg PO Q6HP PRN 05/14/18 Warfarin Sodium [Coumadin 2.5 mg Tablet] 2.5 mg PO WE@2200 MDD 7.5 05/14/18 Warfarin Sodium [Coumadin 5 mg Tablet] 5 mg PO QHS 05/14/18 Aspirin [Ecotrin 81 mg EC Tablet] 81 mg PO DAILY tabec 05/16/18 Metoprolol Tartrate [Lopressor 100 mg Tablet] 100 mg PO Q12 tablet 05/16/18 Lisinopril [Prinivil 40 mg Tablet] 40 mg PO Q12 03/12/19 Pentoxifylline 400 mg PO TID 03/12/19 Allergies/Adverse Reactions: No Known Allergies Allergy (Verified 03/11/19 15:14) Review of Systems Constitutional: PRESENT: as per HPI Musculoskeletal: PRESENT: other - Some mild pains right foot Physical Exam Vital Signs: Temp Pulse Resp BP Pulse Ox 97.9 F 77 18 158/80 H 97 03/12/19 08:07 03/12/19 08:07 03/12/19 08:07 03/12/19 08:07 03/12/19 08:07 Intake & Output 03/11/19 03/12/19 03/13/19 06:59 06:59 06:59 Intake Total 300 1000 Balance 300 1000 Weight 89 kg General appearance: PRESENT: no acute distress Head exam: PRESENT: atraumatic Eye exam: PRESENT: conjunctiva pink Mouth exam: PRESENT: moist Neck exam: PRESENT: full ROM Respiratory exam: PRESENT: clear to auscultation [place] Cardiovascular exam: PRESENT: RRR Pulses: PRESENT: normal radial pulses Vascular exam: PRESENT: normal capillary refill GI/Abdominal exam: PRESENT: soft Rectal exam: PRESENT: deferred Extremities exam: PRESENT: full ROM, other - Is a chronic wound opposite the right third metatarsal head area about [address] Domingo at the wound care center apparently removed the tendon in the center about a week ago Neurological exam: PRESENT: alert, oriented to person, oriented to place, oriented to time, oriented to situation Psychiatric exam: PRESENT: appropriate affect Skin exam: PRESENT: normal color, warm Results Laboratory Results: 03/12/19 06:40 03/12/19 06:40 03/11/19 03/11/19 03/11/19 16:28 16:28 16:28 WBC 15.4 H RBC 5.25 Hgb 16.0 Hct 47.8 MCV 91 MCH 30.4 MCHC 33.4 RDW 15.1 H Plt Count 433 Seg Neutrophils % 75.6 Sodium 139.5 Potassium 4.6 Chloride 102 Carbon Dioxide 23 Anion Gap 15 BUN 28 H Creatinine 2.04 H Est GFR ( Amer) 40 L Glucose 90 Lactic Acid 2.3 H Calcium 9.5 Total Bilirubin 0.7 AST 27 Alkaline Phosphatase 137 H Total Protein 7.7 Albumin 3.9 Urine Color Urine Appearance Urine pH Ur Specific [place] Urine Protein Urine Glucose (UA) Urine Ketones Urine Blood Urine RBC (Auto) 03/11/19 03/12/19 03/12/19 19:30 06:40 06:40 WBC 11.3 H RBC 4.65 Hgb 14.1 Hct 41.9 MCV 90 MCH 30.3 MCHC 33.7 RDW 15.1 H Plt Count 315 Seg Neutrophils % Sodium 138.0 Potassium 4.1 Chloride 104 Carbon Dioxide 24 Anion Gap 10 BUN 32 H Creatinine 1.76 H Est GFR ( Amer) 48 L Glucose 96 Lactic Acid Calcium 8.4 Total Bilirubin AST Alkaline Phosphatase Total Protein Albumin Urine Color CHRIS Urine Appearance CLOUDY Urine pH 5.0 Ur Specific [place] 1.024 Urine Protein 100 H Urine Glucose (UA) NEGATIVE Urine Ketones NEGATIVE Urine Blood NEGATIVE Urine RBC (Auto) 2 Assessment & Plan - Diagnosis (1) Chronic atrial fibrillation Is this a current diagnosis for this admission?: Yes (2) Coronary artery disease Qualifiers: Coronary Disease-Associated Artery/Lesion type: [place] artery [place] vs. transplanted heart: [place] heart Is this a current diagnosis for this admission?: Yes (3) Osteomyelitis Qualifiers: Osteomyelitis type: other acute Osteomyelitis location: foot Laterality: right Qualified Code(s): M86.171 - Other acute osteomyelitis, right ankle and foot Is this a current diagnosis for this admission?: Yes (4) Plantar ulcer of right foot Qualifiers: Non-pressure ulcer stage: with necrosis of bone Qualified Code(s): L97.514 - Non-pressure chronic ulcer of other part of right foot with necrosis of bone Is this a current diagnosis for this admission?: Yes (5) Tobacco use disorder, severe, dependence Is this a current diagnosis for this admission?: Yes (6) Wound of foot Is this a current diagnosis for this admission?: Yes (7) Acute renal injury due to circulatory failure Is this a current diagnosis for this admission?: Yes (8) Peripheral vascular disease Is this a current diagnosis for this admission?: Yes - Time Time Spent: 30 to 50 Minutes - Inpatient Certification Medical Necessity: Need For IV Fluids, Need for IV Antibiotics, Need for Surgery - Plan Summary Plan Summary: This 63-year-old male nondiabetic but with peripheral vascular disease had a stent placed in the right femoral artery 2 years ago. 6 months ago started having chronic wound problems along the right foot and had the x-ray yesterday which showed osteomyelitis of the right third metatarsal head area. He is on Coumadin for atrial fibrillation. He also seen Dr. Cagle for cardiology follow-up. Plans: Get cardiac clearance from Dr. Cagle for possible right foot surgery. Check PT/INR since he is on Coumadin. Continue IV antibiotics He is going to need at least right fourth and third toes removal including the metatarsal bones.
[2019-03-12] MEDS ORDERED: MEROPENEM 500 MG VIAL IV SCH (09:00)
[2019-03-12] MEDS ORDERED: LINEZOLID 600 MG/300 ML RTUPB IV SCH (10:00)
[2019-03-12] MEDS ORDERED: DOCUSATE SODIUM 100 MG CAPSULE PO SCH (10:00)
--- NOTE | 2019-03-12 10:12 | PDOC PROGRESS REPORT ---
Subjective Progress Note for:: 03/12/19 Subjective:: The patient is resting comfortably in bed this morning. He recognized me from previous hospitalizations. He states that he is not having any significant pain in his foot but has been frustrated due to the chronicity of the foot ulcers. Reason For Visit: OSTEOMYELITIS,RIGHT FOOT PLANTAR ULCER Physical Exam Vital Signs: Temp Pulse Resp BP Pulse Ox 97.4 F 86 16 190/90 H 100 03/12/19 09:06 03/12/19 09:06 03/12/19 09:06 03/12/19 09:06 03/12/19 09:06 Intake & Output 03/11/19 03/12/19 03/13/19 06:59 06:59 06:59 Intake Total 300 1000 Balance 300 1000 Weight 89 kg 87.9 kg General appearance: PRESENT: no acute distress, cooperative, well-developed Head exam: PRESENT: atraumatic, normocephalic Eye exam: PRESENT: conjunctiva pink. ABSENT: scleral icterus Ear exam: PRESENT: normal external ear exam. ABSENT: bleeding, drainage Mouth exam: PRESENT: moist, tongue midline Respiratory exam: PRESENT: clear to auscultation manuela, symmetrical, unlabored. ABSENT: prolonged expiratory phas, rales, rhonchi, tachypnea, wheezes Cardiovascular exam: PRESENT: RRR, +S1, +S2 Pulses: PRESENT: other - Very difficult to palpate dorsalis pedis pulses but I do believe there was a thin thready right dorsalis pedis pulse GI/Abdominal exam: PRESENT: normal bowel sounds, soft. ABSENT: distended, guarding, tenderness Rectal exam: PRESENT: deferred Gentrourinary exam: ABSENT: indwelling catheter Extremities exam: PRESENT: other - On the plantar aspect of he foot there are 2 ulcerations. There is a narrow linear ulceration under the second metatarsal head area and a wider shorter ulceration between the third and fourth metatarsal heads. There is increased pigmentation on the dorsum of the foot from approximately midfoot forward. There is no tenderness. There is no cyanosis. The ulcerations are not draining.. ABSENT: clubbing, joint swelling, pedal edema Musculoskeletal exam: PRESENT: deformity - Right foot, full ROM, normal inspection - Except right foot Neurological exam: PRESENT: alert, awake, oriented to person, oriented to place, oriented to time, oriented to situation, CN II-XII grossly intact Psychiatric exam: PRESENT: flat affect. ABSENT: agitated, anxious Focused psych exam: ABSENT: delusional, restlessness Skin exam: PRESENT: other - As above otherwise the skin is warm, dry and normal color. Results Laboratory Results: 03/12/19 06:40 03/12/19 06:40 03/11/19 03/11/19 03/11/19 16:28 16:28 16:28 WBC 15.4 H RBC 5.25 Hgb 16.0 Hct 47.8 MCV 91 MCH 30.4 MCHC 33.4 RDW 15.1 H Plt Count 433 Seg Neutrophils % 75.6 Sodium 139.5 Potassium 4.6 Chloride 102 Carbon Dioxide 23 Anion Gap 15 BUN 28 H Creatinine 2.04 H Est GFR ( Amer) 40 L Glucose 90 Lactic Acid 2.3 H Calcium 9.5 Total Bilirubin 0.7 AST 27 Alkaline Phosphatase 137 H Total Protein 7.7 Albumin 3.9 Urine Color Urine Appearance Urine pH Ur Specific [place] Urine Protein Urine Glucose (UA) Urine Ketones Urine Blood Urine RBC (Auto) 03/11/19 03/12/19 03/12/19 19:30 06:40 06:40 WBC 11.3 H RBC 4.65 Hgb 14.1 Hct 41.9 MCV 90 MCH 30.3 MCHC 33.7 RDW 15.1 H Plt Count 315 Seg Neutrophils % Sodium 138.0 Potassium 4.1 Chloride 104 Carbon Dioxide 24 Anion Gap 10 BUN 32 H Creatinine 1.76 H Est GFR ( Amer) 48 L Glucose 96 Lactic Acid Calcium 8.4 Total Bilirubin AST Alkaline Phosphatase Total Protein Albumin Urine Color CHRIS Urine Appearance CLOUDY Urine pH 5.0 Ur Specific [place] 1.024 Urine Protein 100 H Urine Glucose (UA) NEGATIVE Urine Ketones NEGATIVE Urine Blood NEGATIVE Urine RBC (Auto) 2 Assessment and Plan - Diagnosis (1) Osteomyelitis Qualifiers: Osteomyelitis type: other acute Osteomyelitis location: foot Laterality: right Qualified Code(s): M86.171 - Other acute osteomyelitis, right ankle and foot Is this a current diagnosis for this admission?: Yes Plan: 03/12/2019-the patient has ulcerations from peripheral arterial disease. He has been struggling with his peripheral arterial disease for many years. These particular ulcers have been present for quite a time. He is on antibiotic therapy. I did use this opportunity to have a long discussion with the patient regarding amputation. I like and the ulcerations as a tumor that with surgery could potentially resolve this issue permanently. This is especially true if you would take better care of himself with regard to smoking and cardiac medication compliance. He is seen by Dr. Valdivia. The patient is considering his options but I believe the plan will be for surgery. This may likely be a transmetatarsal amputation. We did discuss options to assess the leg. ESEQUIEL studies would not give any indication to the circulation in his foot. TCOM studies not available at this institution. They would be more appropriate to assess oxygenation of tissue in the lower extremity. An arteriogram would be unreasonable given his acute kidney injury. The patient is on broad-spectrum antibiotic therapy to cover methicillin-resistant staph aureus which is a possibility due to the chronicity of his ulcers. Blood cultures are pending. There is no drainage from the ulcers to culture. (2) Plantar ulcer of right foot Qualifiers: Non-pressure ulcer stage: with necrosis of bone Qualified Code(s): L97.514 - Non-pressure chronic ulcer of other part of right foot with necrosis of bone Is this a current diagnosis for this admission?: Yes Plan: 03/12/2019-the patient is being seen at the wound care center for these ulcers. Evidently he was referred to the hospital yesterday because of abnormal test results. Post discharge he will likely continue to follow with the wound care clinic. (3) Peripheral vascular disease Is this a current diagnosis for this admission?: Yes Plan: 03/12/2019-the patient has already had a stent in his right leg. He is on antiplatelet therapy. Is also on warfarin therapy for his atrial fibrillation. Statin therapy and antihypertensives are also present. We will continue current regimen. We will hold agents that might increased bleeding from surgery. (4) Coronary artery disease Qualifiers: Coronary Disease-Associated Artery/Lesion type: [place] artery [place] vs. transplanted heart: [place] heart Is this a current diagnosis for this admission?: Yes Plan: 03/12/2019-currently asymptomatic for any acute coronary syndrome. Continue current medications. Monitor for symptoms. (5) Acute renal injury due to circulatory failure Is this a current diagnosis for this admission?: Yes Plan: 03/12/2019-the patient is receiving IV fluids. He did have a minimally elevated lactic acid and this already is improving. The serum creatinine is improved this morning as well. We will continue IV fluids and monitor intake and output. We will be mindful of the possibility of congestive failure as well. (6) Tobacco use disorder, severe, dependence Is this a current diagnosis for this admission?: Yes Plan: 03/12/2019-despite his significant peripheral vascular disease the patient continues to smoke. A nicotine patch will be made available. We will encourage smoking cessation. (7) Chronic atrial fibrillation Is this a current diagnosis for this admission?: Yes Plan: 03/12/2019-the patient has a history of chronic atrial fibrillation. By auscultation he seemed to be in a regular rhythm however I will obtain an EKG both to check the underlying rhythm and as part of preoperative clearance. Dr. Fontana has consulted Dr. Cagle as well (8) Chronic anticoagulation Is this a current diagnosis for this admission?: Yes Plan: 03/12/2019-warfarin currently on hold in anticipation of surgery. Resume postop with appropriate goals of INR between 2.03.0. - Plan Summary Summary: Patient will be admitted to a medical floor and receive routine supportive and symptomatic cares. He will be treated with IV antibiotics utilizing meropenem and linezolid initially pending culture results. A surgical consultation will be obtained with Dr. Valdez. Patient will be followed with daily CBCs. He will be continued on his usual therapy for his chronic medical problems including coronary artery disease, peripheral vascular disease and atrial fibrillation. He will receive Nubain 5 to 10 mg IV every 3 hours on a as needed basis using a sliding scale for pain control. Smoking cessation is advised and counseled briefly at the bedside. A nicotine replacement patch is available for the patient's use, if he desires. - Time Time Spent with patient: 25-34 minutes Smoking Cessation Education: 3 to 10 minutes Medications reviewed and adjusted accordingly: Yes
--- NOTE | 2019-03-12 10:29 | PDOC H&P ---
History of Present Illness Admission Date/PCP: 03/11/2019 23:29 RIMA REIS DO Patient complains of: Ulceration of right foot History of Present Illness: FRANCIE RUVALCABA is a 63 year old male who presented to the emergency room from the wound care clinic due to a chronic ulceration of his right foot which has resulted in osteomyelitis of the right third and fourth metatarsals in the right third proximal phalanx. He denies acute symptoms and has no associated or accompanying signs and symptoms related to his wound. He admits prior similar problems related to wounds because by his peripheral vascular disease. He denies identification of any additional aggravating or ameliorating factors for his foot wound. In the emergency room he was found to have a plantar ulceration of the right forefoot and his white blood count was noted to be elevated at 15,000. Patient was subsequently admitted to the hospital for further evaluation and treatment after blood cultures were obtained and a wound culture has apparently been obtained at the wound care clinic but the result is not currently available to me. Past Medical History Cardiac Medical History: Reports: Atrial Fibrillation, Coronary Artery Disease, Myocardial Infarction, Hypertension, Peripheral Vascular Disease Pulmonary Medical History: Denies: Asthma, Bronchitis, Chronic Obstructive Pulmonary Disease (COPD), Pneumonia EENT Medical History: Denies: Cataracts, Ears - Hearing aids Neurological Medical History: Denies: Hemorrhagic CVA, Ischemic CVA, Seizures Endocrine Medical History: Reports: Obesity Denies: Diabetes Mellitus Type 1, Diabetes Mellitus Type 2, Hyperthyroidism, Hypothyroidism Renal/ Medical History: Reports: Chronic Kidney Disease Denies: Nephrolithiasis Malignancy Medical History: Reports: None GI Medical History: Denies: Cirrhosis, Hepatitis Musculoskeltal Medical History: Reports: Arthritis Denies: Gout Skin Medical History: Denies: Eczema, Psoriasis Psychiatric Medical History: Reports: Substance Abuse, Tobacco Dependency Denies: Alcohol Dependency, Depression Traumatic Medical History: Reports: None Hematology: Denies: Anemia, Bleeding Tendencies Infectious Medical History: Reports: None Past Surgical History Past Surgical History: Reports: Vascular Surgery - Left femoropopliteal bypass. Prior arterial vascular stenting. Social History Information Source: Patient Smoking Status: Current Every Day Smoker Electronic Cigarette use?: No Frequency of Alcohol Use: Occasional Hx Recreational Drug Use: Yes - in past Drugs: Cocaine Hx Prescription Drug Abuse: No - Advance Directive Resuscitation Status: Full Code Surrogate healthcare decision maker:: Odalis Estrada Family History Family History: CAD, Malignancy Parental Family History Reviewed: Yes Children Family History Reviewed: No Sibling(s) Family History Reviewed.: Yes Medication/Allergy Home Medications: Acetaminophen with Codeine [Tylenol with Codeine #3 Tablet] 1 tab PO Q6HP PRN 05/14/18 Amlodipine Besylate [Norvasc 5 mg Tablet] 5 mg PO DAILY 05/14/18 Atorvastatin Calcium [Lipitor 40 mg Tablet] 40 mg PO QHS 05/14/18 Fenofibrate 160 mg PO QHS 05/14/18 Furosemide [Lasix] 20 mg PO DAILY 05/14/18 Metoprolol Tartrate [Lopressor 100 mg Tablet] 100 mg PO Q12 05/14/18 Nifedipine [Nifedipine ER] 30 mg PO QHS 05/14/18 Tramadol HCl [Ultram 50 mg Tablet] 50 mg PO Q6HP PRN 05/14/18 Warfarin Sodium [Coumadin 2.5 mg Tablet] 2.5 mg PO MOWEFR@1000 05/14/18 Warfarin Sodium [Coumadin 5 mg Tablet] 5 mg PO SUTUTHSA@1000 05/14/18 Acetaminophen with Codeine [Tylenol #3 Tablet] 1 each PO TIDP PRN tablet 05/16/18 Amlodipine Besylate [Norvasc 5 mg Tablet] 5 mg PO DAILY tablet 05/16/18 Aspirin [Ecotrin 81 mg EC Tablet] 81 mg PO DAILY tabec 05/16/18 Loperamide HCl [Imodium 2 mg Capsule] 2 mg PO Q4HP PRN capsule 05/16/18 Metoprolol Tartrate [Lopressor 100 mg Tablet] 100 mg PO Q12 tablet 05/16/18 Mupirocin [Bactroban 2% Ointment 22 gm] 1 applic TP BID tube 05/16/18 Nicotine [Nicoderm 7 mg/24 Hr Transdermal Patch] 1 each TD DAILYP PRN patch.td24 05/16/18 Psyllium Seed [Metamucil-Sf Powder 5.85 gm Packet] 1 packet PO DAILY packet 05/16/18 Amox Tr/Potassium Clavulanate [Augmentin 875-125 Tablet] 1 tab PO BID 10 Days tablet 07/09/18 Allergies/Adverse Reactions: No Known Allergies Allergy (Verified 03/11/19 15:14) Review of Systems Constitutional: ABSENT: chills, fever(s) Eyes: ABSENT: visual disturbances, other - Eye pain Ears: ABSENT: hearing changes, other - Ear pain Nose, Mouth, and Throat: ABSENT: mouth pain, sore throat Cardiovascular: ABSENT: chest pain, palpitations Respiratory: ABSENT: cough, dyspnea Gastrointestinal: ABSENT: abdominal pain, constipation, diarrhea, nausea, vomiting Genitourinary: ABSENT: dysuria, hematuria Musculoskeletal: ABSENT: back pain, joint swelling, muscle weakness Integumentary: PRESENT: as per HPI, wounds - Ulceration of right foot. ABSENT: pruritus, rash Neurological: ABSENT: confusion, convulsions, focal weakness, memory loss, syncope Psychiatric: ABSENT: anxiety, depression Endocrine: ABSENT: cold intolerance, heat intolerance Hematologic/Lymphatic: ABSENT: easy bleeding, easy bruising Allergic/Immunologic: ABSENT: seasonal rhinorrhea Physical Exam Vital Signs: Temp Pulse Resp BP Pulse Ox 98.2 F 68 17 155/93 H 100 03/11/19 20:08 03/11/19 20:08 03/11/19 20:08 03/11/19 20:08 03/11/19 20:08 Intake & Output 03/09/19 03/10/19 03/11/19 23:59 23:59 23:59 Weight 89 kg General appearance: PRESENT: no acute distress, cooperative, obese Head exam: PRESENT: atraumatic, normocephalic Eye exam: PRESENT: conjunctiva pink. ABSENT: conjunctival injection, scleral icterus Ear exam: PRESENT: normal external ear exam. ABSENT: bleeding, drainage Mouth exam: PRESENT: dry mucosa, neck supple Neck exam: ABSENT: thyromegaly, tracheal deviation Respiratory exam: PRESENT: clear to auscultation manuela, symmetrical, unlabored Cardiovascular exam: PRESENT: irregular rhythm - Irregularly irregular rate and rhythm. ABSENT: clicks, gallop, rubs Pulses: PRESENT: normal radial pulses, other - Decreased dorsalis pedis pulses and posterior tibial pulses bilaterally Vascular exam: PRESENT: normal capillary refill. ABSENT: pallor GI/Abdominal exam: PRESENT: normal bowel sounds, soft Rectal exam: PRESENT: deferred Extremities exam: ABSENT: joint swelling, pedal edema Musculoskeletal exam: ABSENT: deformity, dislocation Neurological exam: PRESENT: alert, oriented to person, oriented to place, oriented to time, oriented to situation, CN II-XII grossly intact. ABSENT: motor sensory deficit Psychiatric exam: PRESENT: appropriate affect, normal mood Skin exam: PRESENT: dry, warm, other - Ulceration of the plantar aspect of the distal right forefoot from the distal third metatarsal to the distal fifth metatarsal involving the metatarsal phalangeal joint area.. ABSENT: jaundice, rash, urticaria Results Laboratory Results: 03/11/19 16:28 03/11/19 16:28 03/11/19 03/11/19 03/11/19 16:28 16:28 16:28 WBC 15.4 H RBC 5.25 Hgb 16.0 Hct 47.8 MCV 91 MCH 30.4 MCHC 33.4 RDW 15.1 H Plt Count 433 Seg Neutrophils % 75.6 Sodium 139.5 Potassium 4.6 Chloride 102 Carbon Dioxide 23 Anion Gap 15 BUN 28 H Creatinine 2.04 H Est GFR ( Amer) 40 L Glucose 90 Lactic Acid 2.3 H Calcium 9.5 Total Bilirubin 0.7 AST 27 Alkaline Phosphatase 137 H Total Protein 7.7 Albumin 3.9 Urine Color Urine Appearance Urine pH Ur Specific [place] Urine Protein Urine Glucose (UA) Urine Ketones Urine Blood Urine RBC (Auto) 03/11/19 19:30 WBC RBC Hgb Hct MCV MCH MCHC RDW Plt Count Seg Neutrophils % Sodium Potassium Chloride Carbon Dioxide Anion Gap BUN Creatinine Est GFR ( Amer) Glucose Lactic Acid Calcium Total Bilirubin AST Alkaline Phosphatase Total Protein Albumin Urine Color CHRIS Urine Appearance CLOUDY Urine pH 5.0 Ur Specific [place] 1.024 Urine Protein 100 H Urine Glucose (UA) NEGATIVE Urine Ketones NEGATIVE Urine Blood NEGATIVE Urine RBC (Auto) 2 Assessment and Plan - Diagnosis (1) Osteomyelitis Qualifiers: Osteomyelitis type: other acute Osteomyelitis location: foot Laterality: right Qualified Code(s): M86.171 - Other acute osteomyelitis, right ankle and foot Is this a current diagnosis for this admission?: Yes (2) Plantar ulcer of right foot Qualifiers: Non-pressure ulcer stage: with necrosis of bone Qualified Code(s): L97.514 - Non-pressure chronic ulcer of other part of right foot with necrosis of bone Is this a current diagnosis for this admission?: Yes (3) Peripheral vascular disease Is this a current diagnosis for this admission?: Yes (4) Coronary artery disease Qualifiers: Coronary Disease-Associated Artery/Lesion type: [place] artery [place] vs. transplanted heart: [place] heart Is this a current diagnosis for this admission?: Yes (5) Chronic atrial fibrillation Is this a current diagnosis for this admission?: Yes (6) Tobacco use disorder, severe, dependence Is this a current diagnosis for this admission?: Yes - Plan Summary Summary: Patient will be admitted to a medical floor and receive routine supportive and symptomatic cares. He will be treated with IV antibiotics utilizing meropenem and linezolid initially pending culture results. A surgical consultation will be obtained with Dr. Valdez. Patient will be followed with daily CBCs. He will be continued on his usual therapy for his chronic medical problems including coronary artery disease, peripheral vascular disease and atrial fibrillation. He will receive Nubain 5 to 10 mg IV every 3 hours on a as needed basis using a sliding scale for pain control. Smoking cessation is advised and counseled briefly at the bedside. A nicotine replacement patch is available for the patient's use, if he desires. - Time Time Spent with patient: 25-34 minutes Smoking Cessation Education: 3 to 10 minutes Medications reviewed and adjusted accordingly: Yes Anticipated discharge: Home - Inpatient Certification Based on my medical assessment, after consideration of the patient's comorbidities, presenting symptoms, or acuity I expect that the services needed warrant INPATIENT care.: Yes I certify that my determination is in accordance with my understanding of Medicare's requirements for reasonable and necessary INPATIENT services [42 CFR 412.3e].: Yes Medical Necessity: Significant Comorbidiites Make Outpatient Treatment Too Risky, Need Close Monitoring Due to Risk of Patient Decompensation, Need For IV Fluids, Need for IV Antibiotics, Need for Surgery, Risk of Complication if Not Cared For in Hospital, Risk of Diagnosis Which Will Require Inpatient Eval/Care/Monitoring
[2019-03-12] MEDS: METOPROLOL TARTRATE 100 MG TABLET PO SCH ×2 (11:42→21:43)
[2019-03-12] MEDS: ASPIRIN 81 MG TABLET, ENT COATED PO SCH (11:43)
[2019-03-12] MEDS: LINEZOLID 600 MG/300 ML RTUPB IV SCH ×2 (11:55→21:44)
[2019-03-12] MEDS: LISINOPRIL 10 MG TABLET PO SCH ×2 (12:25→21:43)
[2019-03-12] MEDS: PENTOXIFYLLINE 400 MG TABLET.SA PO SCH ×2 (14:10→18:06)
[2019-03-12] MEDS ORDERED: PHYTONADIONE INJ 10 MG/1 ML AMPULE SUBCUT ONE (14:45)
[2019-03-12] MEDS: MEROPENEM 1 GM in NORMAL SALINE 50 ML IV SCH (18:05)
--- NOTE | 2019-03-12 18:12 | EKG REPORT ---
SEVERITY:- ABNORMAL ECG - ATRIAL FIBRILLATION, V-RATE 76-99 RIGHT BUNDLE BRANCH BLOCK : Confirmed by: Henrique Verma MD 12-Mar-2019 18:11:28
--- NOTE | 2019-03-12 20:24 | PDOC CONSULTATION ---
Consultation-Blank Consultation: CARDIOLOGY CONSULTATION by Dr. Camelia Cagle on 03/12/2019. Patient seen at 8:30 AM. 60 minutes spent on this patient with more than 50% of time spent in direct patient care. REASON FOR CONSULTATION: Preoperative cardiac risk assessment for surgery on the right third toe. Consult REQUESTING PHYSICIAN: Dr. Fontana, surgical list, , [facility]. HISTORY OF PRESENT ILLNESS: Patient is a 63-year-old male with known history of coronary artery disease, prior history chronic atrial fibrillation on Coumadin, and prior history of TIA with no recurrence, and chronic kidney disease stage III and hypertension admitted with the infection of the right third metatarsal with osteomyelitis and drainage and uncontrolled infection. Hence patient for surgical treatment of the same as soon as the patient's PT/INR is within acceptable/safe range. The patient also has significant peripheral vascular disease, and history of left femoral-popliteal bypass surgery, and history of stent in the right lower extremity artery in the past. He does have claudication. The patient continues to smoke. He denies any chest pain or discomfort. There is no PND orthopnea, or palpitations or syncope. Past Medical History Cardiac Medical History: Reports: Atrial Fibrillation, Coronary Artery Disease, Myocardial Infarction, Hypertension, Peripheral Vascular Disease Pulmonary Medical History: Denies: Asthma, Bronchitis, Chronic Obstructive Pulmonary Disease (COPD), Pneumonia EENT Medical History: Denies: Cataracts, Ears - Hearing aids Neurological Medical History: Denies: Hemorrhagic CVA, Ischemic CVA, Seizures Endocrine Medical History: Reports: Obesity Denies: Diabetes Mellitus Type 1, Diabetes Mellitus Type 2, Hyperthyroidism, Hypothyroidism Renal/ Medical History: Reports: Chronic Kidney Disease Denies: Nephrolithiasis Malignancy Medical History: Reports: None GI Medical History: Denies: Cirrhosis, Hepatitis Musculoskeltal Medical History: Reports: Arthritis Denies: Gout Skin Medical History: Denies: Eczema, Psoriasis Psychiatric Medical History: Reports: Substance Abuse, Tobacco Dependency Denies: Alcohol Dependency, Depression Traumatic Medical History: Reports: None Hematology: Denies: Anemia, Bleeding Tendencies Infectious Medical History: Reports: None ENDOCRINE: Denies history of hypothyroidism all diabetes mellitus. RENAL: History of chronic kidney disease stage III. No recurrent UTI's. DEBURRER MACHINE: No history of CVA, but prior history of TIA with no recurrence. No history of headaches migraines or seizures. Past Surgical History Past Surgical History: Reports: Vascular Surgery - Left femoropopliteal bypass. Prior arterial vascular stenting right lower extremity.. Social History Smoking Status: Current Every Day Smoker Cigarettes Packs Per Day: 0.5 Electronic Cigarette use?: No Frequency of Alcohol Use: Occasional Hx Recreational Drug Use: Yes - in past Drugs: Cocaine Hx Prescription Drug Abuse: No - Advance Directive Resuscitation Status: Full Code. He states his sister is his surrogate healthcare decision maker. Family History Family History: CAD, Malignancy Medication/Allergy Home Medications: Acetaminophen with Codeine [Tylenol with Codeine #3 Tablet] 1 tab PO Q6HP PRN 05/14/18 Atorvastatin Calcium [Lipitor 40 mg Tablet] 40 mg PO QHS 05/14/18 Furosemide [Lasix] 20 mg PO DAILY 05/14/18 Nifedipine [Nifedipine ER] 30 mg PO QHS 05/14/18 Tramadol HCl [Ultram 50 mg Tablet] 50 mg PO Q6HP PRN 05/14/18 Warfarin Sodium [Coumadin 2.5 mg Tablet] 2.5 mg PO WE@2200 MDD 7.5 05/14/18 Warfarin Sodium [Coumadin 5 mg Tablet] 5 mg PO QHS 05/14/18 Aspirin [Ecotrin 81 mg EC Tablet] 81 mg PO DAILY tabec 05/16/18 Metoprolol Tartrate [Lopressor 100 mg Tablet] 100 mg PO Q12 tablet 05/16/18 Lisinopril [Prinivil 40 mg Tablet] 40 mg PO Q12 03/12/19 Pentoxifylline 400 mg PO TID 03/12/19 Allergies/Adverse Reactions: No Known Allergies Allergy. Current Medications Generic Name Dose Route Start Last Admin Trade Name Martyq PRN Reason Stop Dose Admin Acetaminophen 650 mg 03/12/19 00:03 Tylenol 325 Mg Tablet PO 04/11/19 00:02 Q4HP PRN For headache, pain or fever Acetaminophen 650 mg 03/12/19 00:03 Tylenol 650 Mg Supp MA 04/11/19 00:02 Q4HP PRN For headache, pain or fever Al Hydrox/Mg Hydrox/Simethicone 30 ml 03/11/19 23:56 Maalox Plus Susp 30 Udcup PO 04/10/19 23:55 Q6HP PRN HEARTBURN Aspirin 81 mg 03/12/19 10:00 03/12/19 11:43 Ecotrin 81 Mg Ec Tablet PO 04/11/19 09:59 81 mg DAILY IVORY Administration Atorvastatin Calcium 40 mg 03/12/19 22:00 Lipitor 40 Mg Tablet PO 04/11/19 21:59 QHS IVORY Budesonide 0.5 mg 03/12/19 08:00 03/12/19 08:12 Pulmicort Neb 0.5 Mg/2 Ml Ampul NEB 04/11/19 07:59 Not Given RTBID IVORY Dextrose 12.5 gm 03/11/19 23:56 Dextrose Inj 50% Syringe (25 Gm/50 Ml) IV 04/10/19 23:55 PRN PRN FOR BG 50-69 IN ALERT PATIENT Protocol Dextrose 25 gm 03/11/19 23:56 Dextrose Inj 50% Syringe (25 Gm/50 Ml) IV 04/10/19 23:55 PRN PRN See Label Comments Protocol Glucagon 1 mg 03/11/19 23:56 Glucagen Inj 1 Mg Vial SUBCUT 04/10/19 23:55 PRN PRN Evaluate for BG < 70 Protocol Glucose 15 gm 03/11/19 23:56 Glutose 40% Gel 15 Gm Tube PO 04/10/19 23:55 PRN PRN For BG 50-69 in Alert Patient Protocol Glucose 30 gm 03/11/19 23:56 Glutose 40% Gel 15 Gm Tube PO 04/10/19 23:55 PRN PRN FOR BG < 50 IN ALERT PATIENT Protocol Heparin Sodium (Porcine) 5,000 unit 03/12/19 06:00 03/12/19 14:12 Heparin Inj 5,000 Units/Ml 1 Ml Vial SUBCUT 04/11/19 05:59 5,000 unit Q8 IVORY Administration Linezolid 600 mg in 300 mls @ 300 mls/hr 03/12/19 10:00 03/12/19 12:55 Zyvox Rtu 600 Mg/300 Ml Premixed IV 03/19/19 09:59 Infused Q12 IVORY Infusion Dextrose/Lactated Ringer's 1,000 mls @ 167 mls/hr 03/11/19 23:56 03/12/19 08:09 D5lr 1000 Ml Iv Soln IV 04/10/19 23:55 167 mls/hr CONTINUOUS PRN Administration THIS MED IS NOT "PRN" Meropenem 1 gm/ Sodium 50 mls @ 100 mls/hr 03/12/19 18:00 03/12/19 18:43 Chloride IV 03/19/19 17:59 Infused Q12A IVORY Infusion Ipratropium Rubicon 0.5 mg 03/12/19 08:00 03/12/19 16:17 Atrovent 0.02% Neb 0.5 Mg/2.5 Ml Ampul NEB 04/11/19 07:59 Not Given RTQ8 IVORY Levalbuterol HCl 0.63 mg 03/12/19 00:03 Xopenex Neb 0.63 Mg/3 Ml Ampul NEB 04/11/19 00:02 RTQ2HP PRN SHORTNESS OF BREATH Levalbuterol HCl 1.25 mg 03/12/19 08:00 03/12/19 16:17 Xopenex Neb 1.25 Mg/3 Ml Ampul NEB 04/11/19 07:59 Not Given RTQ8 IVORY Lisinopril 40 mg 03/12/19 11:00 03/12/19 12:25 Prinivil 10 Mg Tablet PO 04/11/19 10:59 40 mg Q12 IVORY Administration Magnesium Hydroxide 30 ml 03/11/19 23:56 Milk Of Magnesia 30 Ml Udcup PO 04/10/19 23:55 HSP PRN FOR CONSTIPATION Metoprolol Tartrate 100 mg 03/12/19 10:00 03/12/19 11:42 Lopressor 100 Mg Tablet PO 04/11/19 09:59 100 mg Q12 IVORY Administration Nalbuphine HCl 0 mg 03/12/19 00:03 03/12/19 20:01 Nubain Inj 10 Mg/1 Ml Ampule IV 03/19/19 00:02 5 mg Q3H PRN Administration FOR PAIN Protocol Nicotine 1 each 03/12/19 00:03 Nicoderm 21 Mg/24 Hr Transderm Patch TD 04/11/19 00:02 DAILYP PRN WITHDRAWAL SYMPTOMS Ondansetron HCl 4 mg 03/11/19 23:56 Zofran Inj/Pf 4 Mg/2 Ml Sdv IV 04/10/19 23:55 Q4HP PRN FOR NAUSEA/VOMITING Pantoprazole Sodium 40 mg 03/12/19 06:00 03/12/19 18:[address] Tablet PO 04/11/19 05:59 40 mg BID@0600,1700 IVORY Administration Pentoxifylline 400 mg 03/12/19 14:00 03/12/19 18:06 Trental 400 Mg Tablet.Sa PO 04/11/19 13:59 400 mg TID IVORY Administration Sodium Chloride 2.5 ml 03/12/19 06:00 03/12/19 13:53 Saline Flush 2.5 Ml Monoject Prefil Syrin IV 04/11/19 05:59 Not Given Q8 IVORY Temazepam 15 mg 03/11/19 23:56 Restoril 15 Mg Capsule PO 03/18/19 23:55 HSP PRN SLEEP OR INSOMNIA Discontinued Medications Generic Name Dose Route Start Last Admin Trade Name Freq PRN Reason Stop Dose Admin Docusate Sodium 100 mg 03/12/19 10:00 03/12/19 11:44 Colace 100 Mg Capsule PO 04/11/19 09:59 Not Given BID IVORY Linezolid 600 mg in 300 mls @ 300 mls/hr 03/12/19 01:15 03/12/19 04:32 Zyvox Rtu 600 Mg/300 Ml Premixed IV 03/12/19 02:14 Infused NOW ONE Infusion Linezolid Confirm 03/12/19 01:51 03/12/19 03:26 Zyvox Rtu 600 Mg/300 Ml Premixed Administered 03/12/19 01:52 Not Given Dose 600 mg in 300 mls @ ud IV .STK-MED ONE Meropenem 1 gm 03/12/19 02:00 03/12/19 01:53 Merrem 1 Gm Vial IV 03/12/19 02:01 1 gm IVBAG (ED) ONE Administration Meropenem 500 mg 03/12/19 09:00 Merrem 500 Mg Vial IV 03/19/19 08:59 Q12H IVORY Phytonadione 5 mg 03/12/19 14:45 03/12/19 15:29 Aqua-Mephyton Inj 10 Mg/1 Ml Ampule SUBCUT 03/12/19 14:46 5 mg NOW ONE Administration Review of Systems Constitutional: PRESENT: No definite history of fever chills or rigors. Complains of generalized fatigue and weakness. EYES: No history of amblyopia diplopia no amaurosis fugax. EARS: No severe hearing loss. No history of tinnitus. No vertigo. Nose: No history of hayfever. No history of nosebleeds. MOUTH: No history of altered taste sensation. No ulcers in the mouth. THROAT: No history of odynophagia dysphagia no history of recurrent sore throats. Skin: No history of psoriasis. No allergic discoloration of the skin. No pruritus. NECK: No history of neck swelling. No history of neck pain. LUNGS: No history of asthma or COPD. No history of sleep apnea. No history of pulmonary embolism. Patient is a smoker. HEART: History of hypertension present history of chronic atrial fibrillation present. History of old myocardial infarction. No angina for a long time. History of chronic atrial fibrillation on on Coumadin no history of rapid heartbeats. No syncope. No symptoms of congestive heart failure. GI: No history of GI bleed no history of peptic ulcer disease. No history of fatty food intolerance. No history of jaundice. VASCULAR: Hi story of bilateral leg claudication right greater than left. History of chronic nonhealing osteomyelitis with wound infection of the right third toe. RENAL: History of chronic kidney disease stage III. No symptoms of recurrent UTI. DEBURRER MACHINE: Prior history of TIA. No history of recurrence of TIA. No history of CVA. No history of headaches migraines or seizures. PSYCHIATRIC: Denies anxiety or depression. No suicidal ideation. No homicidal ideation. HEMATOLOGY: No history of bleeding diathesis or clotting disorders. PHYSICAL EXAMINATION: The patient is well-built and well-nourished in no acute distress. Selected Entries 03/12/19 08:07 Temperature 97.9 F Temperature Oral Source Pulse Rate [ 77 Right] Respiratory 18 Rate Blood Pressure 158/80 H [Right Upper Arm] Blood Pressure 106 Mean [Right Upper Arm] Blood Pressure Supine Position [Right Upper Arm] O2 Sat by Pulse 97 Oximetry Oxygen Delivery Room Air Method ( includes room air) HEAD: Head is atraumatic normocephalic. Eyes: Pupils are equal round regular reactive light accommodation extraocular movements are normal there is no congenital pallor there is no scleral icterus. Ears: External auditory canals are clear, there are no lesions of the pinna. Nose: No deviated nasal septum and no inflammation of the nasal mucous membrane. Mouth: Mucous membranes of mouth are moist tongue is moist there is no ulcers there is no bleeding from the gums. Throat: There is no redness of the oropharynx there is no exudates. Skin: There is no petechia or ecchymosis there is no skin lesions or skin rashes. Neck: Neck is supple there is no JVD carotids equal there is no bruit there is no lymphadenopathy there is no neck stiffness. There is no goiter trachea central lungs: Lungs are clear to auscultation percussion there is no accessory muscles of respiration in use. There is no rhonchi rales or wheezing. There is no chest wall tenderness. HEART: S1-S2 is heard there is no S3 gallop there is no S4 gallop S1 is of normal intensity. There is no rub. The systolic murmur in the left sternal border and apex without radiation. Abdomen: Abdomen is soft nontender there is no paraspinal megaly bowel sounds well heard there is no tender areas of masses. There is no rebound guarding or rigidity. Extremities: Femorals are very much decreased. There is no femoral bruits. Leg pulses are difficult to palpate. There is dressing in the right foot.. There is no pedal edema there is no DVT. There is no cyanosis or clubbing there is no DVT or cellulitis. There is no calf tenderness. DEBURRER MACHINE: The patient is awake alert oriented 3 with no focal deficits. Psychiatric: The patient judgment and insight are intact and her affect is normal. Abnormal - 24 hr 03/12/19 03/12/19 03/12/19 06:40 06:40 06:40 WBC 11.3 H RDW 15.1 H PT 30.3 H BUN 32 H Creatinine 1.76 H Est GFR ( Amer) 48 L Est GFR (MDRD) Non-Af 40 L 03/12/19 06:40 PT 30.3 H INR 2.83 EKG: Atrial fibrillation with controlled ventricular response. Right bundle branch block pattern. IV LEXISCAN CARDIOLITE STRESS TEST on 02/23/2018.: There is no reversible ischemia. There is evidence of myocardial infarction in the basal inferior wall. ECHOCARDIOGRAM: 02/28/2018 shows normal left ventricular chamber size. Normal wall motion and normal ejection fraction 60 to 65%. Mild aortic regurgitation without aortic stenosis. Mild mitral regurgitation. Mild tricuspid regurgitation. Mild pulmonary hypertension right ventricle systolic pressure is 44 mmHg with a right atrial pressure of 10. IMPRESSION/RECOMMENDATION: 1. Chronic osteomyelitis and diabetic ulcer of the right third metatarsal/toe: For surgical treatment of the same. 2. Coronary artery disease. History of prior myocardial infarction no anginal symptoms. Continue current anti-CAD medication. 3. Chronic atrial fibrillation: Controlled ventricular response. Patient on Coumadin which has been held for impending surgery. Resume Coumadin as soon as safe from surgical point of view. 4. Hypertension: Blood pressure reasonably controlled. 5. Peripheral arterial disease: 6. Chronic kidney disease stage III: Seems to be stable. Avoid nephrotoxic drugs. 7. Hyperlipidemia. 8. History of tobacco abuse disorder. Tobacco cessation counseling given. 9. Preoperative cardiac risk assessment. RECOMMENDATION: The patient's cardiac status is stable the patient has no angina. No acute changes on EKG. His atrial fibrillation is with controlled ventricular response. Hence patient will be an acceptable cardiac risk for this surgical procedure under general or spinal anesthesia. Postoperatively we will continue to monitor the patient heart rhythm on telemetry and get serial EKGs and cardiac enzymes. Will follow this has been discussed with the hospitalist. Discussed with the patient also. Medical decision making is of high complexity. 60 minutes spent on this patient more than 50% of time spent in direct patient care.
[2019-03-12] MEDS: ATORVASTATIN CALCIUM 40 MG TABLET PO SCH (21:43)
[2019-03-13] MEDS: LOPERAMIDE HCL 2 MG CAPSULE PO PRN (05:29)
[2019-03-13] MEDS: PANTOPRAZOLE SODIUM 40 MG TABLET.DR PO SCH ×2 (05:29→17:05)
[2019-03-13] MEDS: HEPARIN SOD (PORCINE) 5,000 UNIT/ML 1 ML VIAL SUBCUT SCH ×3 (05:29→21:56)
[2019-03-13] MEDS: MEROPENEM 1 GM in NORMAL SALINE 50 ML IV SCH ×2 (05:30→17:05)
[2019-03-13] MEDS: NALBUPHINE HCL INJ 10 MG/1 ML AMPULE IV PRN (05:34)
[2019-03-13 06:14] LABS: HEMATOCRIT 39.2 % (37.9-51.0); HEMOGLOBIN 13.3 g/dL (13.5-17.0); INTERNATIONAL RATION (INR) 2.05; MEAN CORPUSCULAR HEMOGLOBIN 30.5 pg (27.0-33.4); MEAN CORPUSCULAR HGB CONC 33.8 g/dL (32.0-36.0); MEAN CORPUSCULAR VOLUME 90 fl (80-97); PLATELET COUNT 297 10^3/uL (150-450); PROTHROMBIN TIME 23.4 SEC (11.4-15.4); RED BLOOD COUNT 4.35 10^6/uL (4.35-5.55); RED CELL DISTRIBUTION WIDTH 15.3 % (11.5-14.0); WHITE BLOOD COUNT 9.7 10^3/uL (4.0-10.5)
[2019-03-13 06:33] LABS: CHOLESTEROL 96.59 mg/dL (0-200); TRIGLYCERIDES 146 mg/dL (<150)
[2019-03-13 06:45] LABS: DIRECT LDL 54 mg/dL (<100)
[2019-03-13] MEDS: DEXTROSE 5%-LACTATED RINGERS 1,000 ML IV PRN ×3 (06:54→21:54)
[2019-03-13] MEDS: LEVALBUTEROL HCL NEB 1.25 MG/3 ML AMPUL NEB SCH (08:42)
[2019-03-13] MEDS: IPRATROPIUM BROMIDE 0.02% NEB 0.5 MG/2.5 ML AMPUL NEB SCH (08:42)
[2019-03-13] MEDS: BUDESONIDE NEB 0.5 MG/2 ML AMPUL NEB SCH (08:42)
[2019-03-13] MEDS: ASPIRIN 81 MG TABLET, ENT COATED PO SCH (09:04)
[2019-03-13] MEDS: PENTOXIFYLLINE 400 MG TABLET.SA PO SCH ×3 (09:05→17:05)
[2019-03-13] MEDS: METOPROLOL TARTRATE 100 MG TABLET PO SCH ×2 (09:07→21:56)
[2019-03-13] MEDS: LISINOPRIL 10 MG TABLET PO SCH ×2 (09:07→21:56)
--- NOTE | 2019-03-13 09:52 | PDOC PROGRESS REPORT ---
Subjective Progress Note for:: 03/13/19 Subjective:: The patient is sleeping comfortably. He states that people keep asking about breathing treatments and he does not report any lung disease. He has asked that these treatment to be stopped. In addition he had more questions about surgery. Dr. Murdock will be coming in to discuss the surgery with him. Reason For Visit: OSTEOMYELITIS,RIGHT FOOT PLANTAR ULCER Physical Exam Vital Signs: Temp Pulse Resp BP Pulse Ox 97.7 F 64 18 184/92 H 100 03/13/19 09:15 03/13/19 09:15 03/13/19 09:15 03/13/19 09:15 03/13/19 09:15 Intake & Output 03/12/19 03/13/19 03/14/19 06:59 06:59 05:59 Intake Total 300 4380 0 Output Total 725 Balance 300 3655 0 Weight 89 kg 90.9 kg General appearance: PRESENT: no acute distress, cooperative, well-developed Head exam: PRESENT: atraumatic, normocephalic Eye exam: PRESENT: conjunctiva pink. ABSENT: scleral icterus Ear exam: PRESENT: normal external ear exam. ABSENT: bleeding, drainage Mouth exam: PRESENT: moist, tongue midline Teeth exam: PRESENT: poor dentation Respiratory exam: PRESENT: clear to auscultation manuel[place], symmetrical, unlabored. ABSENT: rales, rhonchi, tachypnea, wheezes Cardiovascular exam: PRESENT: RRR, +S1, +S2 GI/Abdominal exam: PRESENT: normal bowel sounds, soft. ABSENT: distended, tenderness Rectal exam: PRESENT: deferred Gentrourinary exam: ABSENT: indwelling catheter Extremities exam: PRESENT: other - Dressing on the right foot. ABSENT: joint swelling, pedal edema Musculoskeletal exam: PRESENT: normal inspection Neurological exam: PRESENT: alert, awake, oriented to person, oriented to place, oriented to time, oriented to situation, CN II-XII grossly intact Psychiatric exam: PRESENT: appropriate affect. ABSENT: agitated, anxious Focused psych exam: ABSENT: delusional, restlessness Results Laboratory Results: 03/13/19 05:42 03/12/19 06:40 03/13/19 03/13/19 03/13/19 05:42 05:42 05:42 WBC 9.7 RBC 4.35 Hgb 13.3 L Hct 39.2 MCV 90 MCH 30.5 MCHC 33.8 RDW 15.3 H Plt Count 297 Magnesium 2.0 Triglycerides 146 Cholesterol 96.59 LDL Cholesterol Direct 54 VLDL Cholesterol 29.0 HDL Cholesterol 23 L TSH 1.90 Blood Type Antibody Screen 03/13/19 07:00 WBC RBC Hgb Hct MCV MCH MCHC RDW Plt Count Magnesium Triglycerides Cholesterol LDL Cholesterol Direct VLDL Cholesterol HDL Cholesterol TSH Blood Type O POSITIVE Antibody Screen NEGATIVE Assessment and Plan - Diagnosis (1) Osteomyelitis Qualifiers: Osteomyelitis type: other acute Osteomyelitis location: foot Laterality: right Qualified Code(s): M86.171 - Other acute osteomyelitis, right ankle and foot Is this a current diagnosis for this admission?: Yes Plan: 03/12/2019-the patient has ulcerations from peripheral arterial disease. He has been struggling with his peripheral arterial disease for many years. These particular ulcers have been present for quite a time. He is on antibiotic therapy. I did use this opportunity to have a long discussion with the patient regarding amputation. I like and the ulcerations as a tumor that with surgery could potentially resolve this issue permanently. This is especially true if you would take better care of himself with regard to smoking and cardiac medication compliance. He is seen by Dr. Valdivia. The patient is considering his options but I believe the plan will be for surgery. This may likely be a transmetatarsal amputation. We did discuss options to assess the leg. ESEQUIEL studies would not give any indication to the circulation in his foot. TCOM studies not available at this institution. They would be more appropriate to assess oxygenation of tissue in the lower extremity. An arteriogram would be unreasonable given his acute kidney injury. The patient is on broad-spectrum antibiotic therapy to cover methicillin-resistant staph aureus which is a possibility due to the chronicity of his ulcers. Blood cultures are pending. There is no drainage from the ulcers to culture. March 13, 2019-Dr. Murdock is seen the patient. He in fact is going for surgery this morning. We will continue his antibiotic therapy for the time raul jean baptiste He will not need 6 weeks of antibiotic therapy but should be able to discontinue his antibiotics within 7 to 10 days. (2) Plantar ulcer of right foot Qualifiers: Non-pressure ulcer stage: with necrosis of bone Qualified Code(s): L97.514 - Non-pressure chronic ulcer of other part of right foot with necrosis of bone Is this a current diagnosis for this admission?: Yes Plan: 03/12/2019-the patient is being seen at the wound care center for these ulcers. Evidently he was referred to the hospital yesterday because of abnormal test results. Post discharge he will likely continue to follow with the wound care clinic. March 13, 2019-surgery this morning (3) Peripheral vascular disease Is this a current diagnosis for this admission?: Yes Plan: 03/12/2019-the patient has already had a stent in his right leg. He is on antiplatelet therapy. Is also on warfarin therapy for his atrial fibrillation. Statin therapy and antihypertensives are also present. We will continue current regimen. We will hold agents that might increased bleeding from surgery. From the 2018-continue statin, antiplatelet and antihypertensive therapy (4) Coronary artery disease Qualifiers: Coronary Disease-Associated Artery/Lesion type: [place] artery [place] vs. transplanted heart: [place] heart Is this a current diagnosis for this admission?: Yes Plan: 03/12/2019-currently asymptomatic for any acute coronary syndrome. Continue current medications. Monitor for symptoms. March 13, 2019-remains stable and asymptomatic. Continue current regimen. (5) Acute renal injury due to circulatory failure Is this a current diagnosis for this admission?: Yes Plan: 03/12/2019-the patient is receiving IV fluids. He did have a minimally elevated lactic acid and this already is improving. The serum creatinine is improved this morning as well. We will continue IV fluids and monitor intake and output. We will be mindful of the possibility of congestive failure as well. March 13, 2019-creatinine is slightly better. Going for surgery this morning. We will continue to follow. (6) Tobacco use disorder, severe, dependence Is this a current diagnosis for this admission?: Yes Plan: 03/12/2019-despite his significant peripheral vascular disease the patient continues to smoke. A nicotine patch will be made available. We will encourage smoking cessation. March 13, 2019-continue nicotine patch (7) Chronic atrial fibrillation Is this a current diagnosis for this admission?: Yes Plan: 03/12/2019-the patient has a history of chronic atrial fibrillation. By auscultation he seemed to be in a regular rhythm however I will obtain an EKG both to check the underlying rhythm and as part of preoperative clearance. Dr. Fontana has consulted Dr. Cagle as well March 13, 2019-continue current medications. Resume warfarin therapy after surgery. (8) Chronic anticoagulation Is this a current diagnosis for this admission?: Yes Plan: 03/12/2019-warfarin currently on hold in anticipation of surgery. Resume postop with appropriate goals of INR between 2.03.0. March 13, 2019-the patient did receive vitamin K yesterday. He is getting 2 units of fresh frozen plasma today. Can resume anticoagulation after surgery. - Plan Summary Summary: Patient will be admitted to a medical floor and receive routine supportive and symptomatic cares. He will be treated with IV antibiotics utilizing meropenem and linezolid initially pending culture results. A surgical consultation will be obtained with Dr. Valdez. Patient will be followed with daily CBCs. He will be continued on his usual therapy for his chronic medical problems including coronary artery disease, peripheral vascular disease and atrial fibrillation. He will receive Nubain 5 to 10 mg IV every 3 hours on a as needed basis using a sliding scale for pain control. Smoking cessation is advised and counseled briefly at the bedside. A nicotine replacement patch is available for the patient's use, if he desires. - Time Time Spent with patient: 15-24 minutes Medications reviewed and adjusted accordingly: Yes
[2019-03-13] MEDS ORDERED: BUPIVACAINE HCL 0.25 % INJ/PF (2.5 MG/1 ML) 30 ML VIAL ONE (11:21)
[2019-03-13] MEDS ORDERED: FENTANYL CITRATE INJ/PF 100 MCG/2 ML AMPUL ONE (11:25)
[2019-03-13] MEDS ORDERED: PROPOFOL INJ 200 MG/20 ML VIAL IV ONE (11:25)
[2019-03-13] MEDS ORDERED: MIDAZOLAM 2 MG/2 ML INJ ONE (11:25)
[2019-03-13] MEDS ORDERED: KETAMINE HCL INJ 500 MG/10 ML VIAL ONE (11:40)
[2019-03-13 11:47] LABS: INTERNATIONAL RATION (INR) 1.51; PROTHROMBIN TIME 18.4 SEC (11.4-15.4)
[2019-03-13] MEDS ORDERED: FENTANYL CITRATE INJ/PF 100 MCG/2 ML AMPUL IV PRN ×3 (11:58)
[2019-03-13] MEDS ORDERED: DIPHENHYDRAMINE HCL 50 MG/ML VIAL IV PRN (11:58)
[2019-03-13] MEDS ORDERED: MEPERIDINE HCL/PF INJ 25 MG/1 ML DISP.SYRIN IV PRN (11:58)
[2019-03-13] MEDS ORDERED: PROMETHAZINE HCL INJ 25 MG/1 ML VIAL IV PRN (11:58)
[2019-03-13] MEDS ORDERED: MORPHINE SULFATE 10 MG/ML INJ IV PRN (11:58)
[2019-03-13] MEDS: LINEZOLID 600 MG/300 ML RTUPB IV SCH ×2 (13:37→21:53)
[2019-03-13] MEDS: HYDROCODONE/ACETAMINOPHEN 10-325 MG TABLET PO PRN ×3 (13:43→21:54)
[2019-03-13] MEDS ORDERED: NALBUPHINE HCL INJ 10 MG/1 ML AMPULE IV PRN ×2 (14:02→14:03)
[2019-03-13] MEDS: MORPHINE SULFATE 10 MG/ML INJ IV PRN ×2 (15:45→19:50)
--- NOTE | 2019-03-13 17:16 | PDOC PROGRESS REPORT ---
Subjective Progress Note for:: 03/13/19 Subjective:: This is a 63-year-old male with osteomyelitis of the right foot. He denies fevers, chills, nausea, vomiting, headache, dizziness, blurry vision. He reports drainage of the ulcer on the plantar surface of the right foot. He reports some right foot pain. Reason For Visit: OSTEOMYELITIS,RIGHT FOOT PLANTAR ULCER Physical Exam Vital Signs: Temp Pulse Resp BP Pulse Ox 97.7 F 70 18 152/98 H 100 03/13/19 09:58 03/13/19 09:58 03/13/19 09:58 03/13/19 09:58 03/13/19 09:58 Intake & Output 03/12/19 03/13/19 03/14/19 06:59 06:59 05:59 Intake Total 300 4380 325 Output Total 725 525 Balance 300 3655 -200 Weight 89 kg 90.9 kg General appearance: PRESENT: no acute distress, cooperative Head exam: PRESENT: atraumatic, normocephalic Eye exam: PRESENT: EOMI, PERRLA Mouth exam: PRESENT: moist, neck supple Neck exam: ABSENT: tenderness, thyromegaly, tracheal deviation Respiratory exam: PRESENT: unlabored. ABSENT: tachypnea, wheezes Cardiovascular exam: PRESENT: RRR GI/Abdominal exam: PRESENT: soft. ABSENT: distended, firm, guarding, tenderness Rectal exam: PRESENT: deferred Extremities exam: PRESENT: other - Right foot with ulcer to the plantar surface over the third metatarsal head. There is serous fluid emanating from the wound. There is tenderness to palpation over the ulcer. Neurological exam: PRESENT: alert, awake, oriented to person, oriented to place, oriented to time, oriented to situation, CN II-XII grossly intact Psychiatric exam: ABSENT: agitated, anxious, depressed Focused psych exam: ABSENT: delusional Skin exam: ABSENT: cyanosis, erythema, jaundice Results Laboratory Results: 03/13/19 05:42 03/12/19 06:40 03/13/19 03/13/19 03/13/19 05:42 05:42 05:42 WBC 9.7 RBC 4.35 Hgb 13.3 L Hct 39.2 MCV 90 MCH 30.5 MCHC 33.8 RDW 15.3 H Plt Count 297 Magnesium 2.0 Triglycerides 146 Cholesterol 96.59 LDL Cholesterol Direct 54 VLDL Cholesterol 29.0 HDL Cholesterol 23 L TSH 1.90 Blood Type Antibody Screen 03/13/19 07:00 WBC RBC Hgb Hct MCV MCH MCHC RDW Plt Count Magnesium Triglycerides Cholesterol LDL Cholesterol Direct VLDL Cholesterol HDL Cholesterol TSH Blood Type O POSITIVE Antibody Screen NEGATIVE Assessment & Plan - Diagnosis (1) Osteomyelitis Qualifiers: Osteomyelitis type: other acute Osteomyelitis location: foot Laterality: right Qualified Code(s): M86.171 - Other acute osteomyelitis, right ankle and foot Is this a current diagnosis for this admission?: Yes (2) Plantar ulcer of right foot Qualifiers: Non-pressure ulcer stage: with necrosis of bone Qualified Code(s): L97.514 - Non-pressure chronic ulcer of other 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 He has an ulcerated area over the third metatarsal head. His x-rays are concerning for osteomyelitis of the third metatarsal, and fourth toe. I have recommended amputation of these 2 digits, with resection of the metatarsal head to alleviate the infection. The patient has agreed to this. Risks/benefits discussed, informed consent obtained, and all questions answered.
--- NOTE | 2019-03-13 17:23 | Operative Report ---
Nonrecallable Operative Report DATE OF SURGERY: 03/13/19 PREOPERATIVE DIAGNOSIS: Osteomyelitis of the third metatarsal head and fourth toe on the right foot. POSTOPERATIVE DIAGNOSIS: Same as above OPERATION: Amputation of the third and fourth toes of the right foot with d ebridement and resection of the midportion of the metatarsal bone. SURGEON: KELECHI OLMOS ANESTHESIA: LMAC TISSUE REMOVED OR ALTERED: Third and fourth toes with accompanying metatarsal bones COMPLICATIONS: None apparent ESTIMATED BLOOD LOSS: Minimal PROCEDURE: Drains/implants: Surgicel packed into the open portion of the wound. Procedure in detail: After informed consent was obtained, the patient was brought to the operating room and laid in the supine position. The area of the right foot was prepped and draped in a normal sterile fashion. An incision was created around the third and fourth toes, and carried down to the bones of the toe. On the dorsal surface, a tennis racquet like incision was created. The incision was carried on the plantar surface in order to excise the chronic ulcer overlying the third metatarsal head. The third toe was disarticulated from the joint and passed off the field. The fourth toe had previously undergone resection of the metatarsal head, without amputation of the toe. The fourth toe was removed easily. Next attention was turned to trimming and debridement of the metatarsal bones. The third metatarsal head was spongy and weak from osteomyelitis. The third metatarsal was trimmed back to an area that appeared more normal. The fourth metatarsal head had previously been resected. A small portion of the remaining metatarsal bone was taken, to ensure that all infected tissue was removed. Once this was completed, hemostasis was achieved using electrocautery. The soft tissues were closed on the plantar and dorsal surface using 2-0 Vicryl suture in interrupted fashion. 3-0 nylon was then used to close the skin of the plantar surface. Several stitches were used in the proximal dorsal surface, however the distal aspect of the incision was left open. There was oozing at the skin edges. The wound was packed with Surgicel. Good hemostasis was achieved. A dressing was then placed, and the procedure was concluded. All sponge, instrument, and needle counts were correct x2. Condition: Stable.
--- NOTE | 2019-03-13 21:34 | Progress Note ---
Provider Note Provider Note: CARDIOLOGY PROGRESS NOTE by Dr. Camelia Cagle on 03/13/2019. Subjective: The patient had amputation of his right third and fourth toes under LMAC anesthesia. The patient pain is well controlled. He denies any chest pain or discomfort. There is no shortness of breath. There is no PND orthopnea. He continues to be chronic atrial fibrillation with controlled ventricular response. Would recommend asking the surgeon to see when the Coumadin can be restarted. There is no TIA CVA symptoms. PHYSICAL EXAMINATION: The patient is mildly obese. In no acute distress. Selected Entries 03/13/19 15:30 Temperature 97.7 F Pulse Rate 72 Respiratory 20 Rate Blood Pressure 142/72 H O2 Sat by Pulse 100 Oximetry Oxygen Delivery Room Air Method ( includes room air) HEAD: Head is atraumatic normocephalic. Eyes: Pupils are equal round regular reactive light accommodation extraocular movements are normal there is no congenital pallor there is no scleral icterus. Ears: External auditory canals are clear, there are no lesions of the pinna. Nose: No deviated nasal septum and no inflammation of the nasal mucous membrane. Mouth: Mucous membranes of mouth are moist tongue is moist there is no ulcers there is no bleeding from the gums. Throat: There is no redness of the oropharynx there is no exudates. Skin: There is no petechia or ecchymosis there is no skin lesions or skin rashes. Neck: Neck is supple there is no JVD carotids equal there is no bruit there is no lymphadenopathy there is no neck stiffness. There is no goiter trachea central lungs: Lungs are clear to auscultation percussion there is no accessory muscles of respiration in use. There is no rhonchi rales or wheezing. There is no chest wall tenderness. HEART: S1-S2 is heard there is no S3 gallop there is no S4 gallop S1 is of normal intensity. There is no rub. The systolic murmur in the left sternal border and apex without radiation. Abdomen: Abdomen is soft nontender there is no paraspinal megaly bowel sounds well heard there is no tender areas of masses. There is no rebound guarding or rigidity. Extremities: Femorals are very much decreased. There is no femoral bruits. Leg pulses are difficult to palpate. There is dressing in the right foot.. There is no pedal edema there is no DVT. There is no cyanosis or clubbing there is no DVT or cellulitis. There is no calf tenderness. MILK BOTTLER: The patient is awake alert oriented 3 with no focal deficits. Psychiatric: The patient judgment and insight are intact and her affect is normal. Labs- All tests 24 hr 03/13/19 03/13/19 03/13/19 05:42 05:42 05:42 WBC 9.7 RBC 4.35 Hgb 13.3 L Hct 39.2 MCV 90 MCH 30.5 MCHC 33.8 RDW 15.3 H Plt Count 297 ESR Cancelled PT 23.4 H INR 2.05 Magnesium 2.0 Triglycerides 146 Cholesterol 96.59 LDL Cholesterol Direct 54 VLDL Cholesterol 29.0 HDL Cholesterol 23 L TSH Blood Type Antibody Screen 03/13/19 03/13/19 03/13/19 05:42 07:00 11:26 WBC RBC Hgb Hct MCV MCH MCHC RDW Plt Count ESR PT 18.4 H INR 1.51 Magnesium Triglycerides Cholesterol LDL Cholesterol Direct VLDL Cholesterol HDL Cholesterol TSH 1.90 Blood Type O POSITIVE Antibody Screen NEGATIVE IMPRESSION/RECOMMENDATION: 1. Chronic osteomyelitis and diabetic ulcer of the right third metatarsal/toe: For surgical treatment of the same. 2. Coronary artery disease. History of prior myocardial infarction no anginal symptoms. Continue current anti-CAD medication. 3. Chronic atrial fibrillation: Controlled ventricular response. Patient on Coumadin which has been held for impending surgery. Resume Coumadin as soon as safe from surgical point of view. Will check EKG in the a.m. and also troponin. 4. Hypertension: Blood pressure reasonably controlled. 5. Peripheral arterial disease: 6. Chronic kidney disease stage III: Seems to be stable. Avoid nephrotoxic drugs. 7. Hyperlipidemia. 8. History of tobacco abuse disorder. Tobacco cessation counseling given again. Ill effects of tobacco was reinforced t again. Medications reviewed. Management plan discussed with the attending physician in the surgical list. Medical decision making is of moderate complexity. 40 minutes spent on this patient more than 50% of time spent in direct patient c are. Will follow..
[2019-03-13] MEDS: ATORVASTATIN CALCIUM 40 MG TABLET PO SCH (21:56)
[2019-03-14] MEDS: MORPHINE SULFATE 10 MG/ML INJ IV PRN ×3 (00:10→22:05)
[2019-03-14] MEDS: HYDROCODONE/ACETAMINOPHEN 10-325 MG TABLET PO PRN ×2 (05:47→14:04)
[2019-03-14] MEDS: HEPARIN SOD (PORCINE) 5,000 UNIT/ML 1 ML VIAL SUBCUT SCH ×3 (05:47→22:04)
[2019-03-14] MEDS: PANTOPRAZOLE SODIUM 40 MG TABLET.DR PO SCH ×2 (05:47→17:36)
[2019-03-14] MEDS: MEROPENEM 1 GM in NORMAL SALINE 50 ML IV SCH ×2 (05:47→17:36)
[2019-03-14] MEDS: DEXTROSE 5%-LACTATED RINGERS 1,000 ML IV PRN (05:57)
[2019-03-14 06:34] LABS: HEMATOCRIT 37.3 % (37.9-51.0); HEMOGLOBIN 12.3 g/dL (13.5-17.0); MEAN CORPUSCULAR HEMOGLOBIN 30.3 pg (27.0-33.4); MEAN CORPUSCULAR HGB CONC 33.1 g/dL (32.0-36.0); MEAN CORPUSCULAR VOLUME 91 fl (80-97); PLATELET COUNT 274 10^3/uL (150-450); RED BLOOD COUNT 4.08 10^6/uL (4.35-5.55); RED CELL DISTRIBUTION WIDTH 15.1 % (11.5-14.0); WHITE BLOOD COUNT 8.9 10^3/uL (4.0-10.5)
[2019-03-14 06:59] LABS: ANION GAP 5 (5-19); BLOOD UREA NITROGEN 11 mg/dL (7-20); CARBON DIOXIDE 30 mmol/L (22-30); CHLORIDE 102 mmol/L (98-107); GLUCOSE 77 mg/dL (75-110); POTASSIUM 4.3 mmol/L (3.6-5.0)
[2019-03-14 07:14] LABS: INTERNATIONAL RATION (INR) 1.32; PROTHROMBIN TIME 16.5 SEC (11.4-15.4)
--- NOTE | 2019-03-14 08:10 | EKG REPORT ---
SEVERITY:- ABNORMAL ECG - ATRIAL FIBRILLATION RIGHT BUNDLE BRANCH BLOCK : Confirmed by: Henrique Verma MD 14-Mar-2019 08:10:03
[2019-03-14] MEDS: LOPERAMIDE HCL 2 MG CAPSULE PO PRN (10:27)
[2019-03-14] MEDS: PENTOXIFYLLINE 400 MG TABLET.SA PO SCH ×3 (10:27→17:36)
[2019-03-14] MEDS: ASPIRIN 81 MG TABLET, ENT COATED PO SCH (10:27)
[2019-03-14] MEDS: LINEZOLID 600 MG/300 ML RTUPB IV SCH ×2 (10:27→22:01)
[2019-03-14] MEDS: METOPROLOL TARTRATE 100 MG TABLET PO SCH ×2 (10:27→22:03)
[2019-03-14] MEDS: LISINOPRIL 10 MG TABLET PO SCH ×2 (10:28→22:03)
--- NOTE | 2019-03-14 10:30 | Progress Note ---
Provider Note Provider Note: CARDIOLOGY PROGRESS NOTE by Dr. Camelia Cagle on 03/14/2019. SUBJECTIVE: The patient denies any chest pain or discomfort. The patient continues to be atrial fibrillation. There is no ventricular arrhythmia seen on the monitor. There is no palpitations. There is no shortness of breath. There is no PND orthopnea. The patient's blood pressure still little high. The patient's Coumadin will be restarted today. There is no TIA CVA symptoms. PHYSICAL EXAMINATION: The patient is mildly obese. In no acute distress. Selected Entries 03/13/19 03/14/19 23:51 08:55 Temperature 97.6 F Pulse Rate 60 Respiratory 16 Rate Blood Pressure 167/76 H Blood Pressure 106 Mean O2 Sat by Pulse 100 Oximetry Oxygen Delivery Room Air Method ( includes room air) HEAD: Head is atraumatic normocephalic. Eyes: Pupils are equal round regular reactive light accommodation extraocular movements are normal there is no congenital pallor there is no scleral icterus. Ears: External auditory canals are clear, there are no lesions of the pinna. Nose: No deviated nasal septum and no inflammation of the nasal mucous membrane. Mouth: Mucous membranes of mouth are moist tongue is moist there is no ulcers there is no bleeding from the gums. Throat: There is no redness of the oropharynx there is no exudates. Skin: There is no petechia or ecchymosis there is no skin lesions or skin rashes. Neck: Neck is supple there is no JVD carotids equal there is no bruit t here is no lymphadenopathy there is no neck stiffness. There is no goiter trachea central lungs: Lungs are clear to auscultation percussion there is no accessory muscles of respiration in use. There is no rhonchi rales or wheezing. There is no chest wall tenderness. HEART: S1-S2 is heard there is no S3 gallop there is no S4 gallop S1 is of normal intensity. There is no rub. The systolic murmur in the left sternal border and apex without radiation. Abdomen: Abdomen is soft nontender there is no paraspinal megaly bowel sounds well heard there is no tender areas of masses. There is no rebound guarding or rigidity. Extremities: Femorals are very much decreased. There is no femoral bruits. Leg pulses are difficult to palpate. There is dressing in the right foot.. There is no pedal edema there is no DVT. There is no cyanosis or clubbing there is no DVT or cellulitis. There is no calf tenderness. ELECTRODYNAMICIST: The patient is awake alert oriented 3 with no focal deficits. Psychiatric: The patient judgment and insight are intact and her affect is normal. The patient EKG: Shows atrial fibrillation with right bundle branch block pattern. No acute ischemia or injury seen. Note that the patient's troponin I is negative. Labs- All tests 24 hr 03/13/19 03/13/19 03/14/19 07:00 11:26 05:36 WBC 8.9 RBC 4.08 L Hgb 12.3 L Hct 37.3 L MCV 91 MCH 30.3 MCHC 33.1 RDW 15.1 H Plt Count 274 PT 18.4 H INR 1.51 Sodium Potassium Chloride Carbon Dioxide Anion Gap BUN Creatinine Est GFR ( Amer) Est GFR (MDRD) Non-Af Glucose Calcium Troponin I Blood Type O POSITIVE Antibody Screen NEGATIVE 03/14/19 03/14/19 03/14/19 05:36 05:36 06:40 WBC RBC Hgb Hct MCV MCH MCHC RDW Plt Count PT 16.5 H INR 1.32 Sodium 137.0 Potassium 4.3 Chloride 102 Carbon Dioxide 30 Anion Gap 5 BUN 11 Creatinine 1.37 H Est GFR ( Amer) > 60 Est GFR (MDRD) Non-Af 53 L Glucose 77 Calcium 8.0 L Troponin I < 0.012 Blood Type Antibody Screen IMPRESSION/RECOMMENDATION: 1. Chronic osteomyelitis and diabetic ulcer of the right third metatarsal/toe: Status post amputation of the third and fourth toes on the right foot. 2. Coronary artery disease. History of prior myocardial infarction no anginal symptoms. Continue current anti-CAD medication. 3. Chronic atrial fibrillation: Controlled ventricular response. Patient on Coumadin which has been held for impending surgery. Resume Coumadin as soon as safe from surgical point of view. Will check EKG in the a.m. and also troponin. 4. Hypertension: Blood pressure appears to be uncontrolled at present. We will start the patient on amlodipine 5 mg p.o. daily. 5. Peripheral arterial disease: 6. Chronic kidney disease stage III: Seems to be stable. Avoid nephrotoxic drugs. 7. Hyperlipidemia. 8. History of tobacco abuse disorder. Tobacco cessation counseling given again. Ill effects of tobacco was reinforced t again. MEDICATIONS reviewed. Medications added. Medical regimen and management plan discussed with the hospitalist and the surgical list taking care of the patient. Medical decision making is of high complexity in view of the need to start new medications. 40 minutes spent on this patient with more than 50% of time spent in direct patient care. Will follow.
--- NOTE | 2019-03-14 12:22 | PDOC PROGRESS REPORT ---
Subjective Progress Note for:: 03/14/19 Subjective:: The patient is postop day #1. He is in good spirits. He is not reporting any pain. He is heel weightbearing and using his cane. He did suggest considering a walker and we will have physical therapy see the patient. Discharge planning was discussing disposition earlier today. Reason For Visit: OSTEOMYELITIS,RIGHT FOOT PLANTAR ULCER Physical Exam Vital Signs: Temp Pulse Resp BP Pulse Ox 97.6 F 60 16 167/76 H 100 03/14/19 08:55 03/14/19 08:55 03/14/19 08:55 03/14/19 08:55 03/14/19 08:55 Intake & Output 03/13/19 03/14/19 03/15/19 07:59 06:59 06:59 Intake Total Output Total Balance Weight General appearance: PRESENT: no acute distress, cooperative, well-developed Head exam: PRESENT: atraumatic, normocephalic Mouth exam: PRESENT: dry mucosa, tongue midline Teeth exam: PRESENT: poor dentation Respiratory exam: PRESENT: clear to auscultation manuela, symmetrical, unlabored. ABSENT: rales, rhonchi, tachypnea, wheezes Cardiovascular exam: PRESENT: irregular rhythm GI/Abdominal exam: PRESENT: normal bowel sounds, soft, other - Protuberant abdomen. ABSENT: distended, tenderness Rectal exam: PRESENT: deferred Extremities exam: PRESENT: other - Right foot with dressing in place. ABSENT: pedal edema Neurological exam: PRESENT: alert, awake, oriented to person, oriented to place, oriented to time, oriented to situation, CN II-XII grossly intact Psychiatric exam: PRESENT: appropriate affect, normal mood. ABSENT: agitated, anxious Focused psych exam: ABSENT: delusional, restlessness Results Laboratory Results: 03/14/19 05:36 03/14/19 05:36 03/13/19 03/14/19 03/14/19 07:00 05:36 05:36 WBC 8.9 RBC 4.08 L Hgb 12.3 L Hct 37.3 L MCV 91 MCH 30.3 MCHC 33.1 RDW 15.1 H Plt Count 274 Sodium 137.0 Potassium 4.3 Chloride 102 Carbon Dioxide 30 Anion Gap 5 BUN 11 Creatinine 1.37 H Est GFR ( Amer) > 60 Glucose 77 Calcium 8.0 L Blood Type O POSITIVE Antibody Screen NEGATIVE 03/14/19 05:36 Troponin I < 0.012 Assessment and Plan - Diagnosis (1) Osteomyelitis Qualifiers: Osteomyelitis type: other acute Osteomyelitis location: foot Laterality: right Qualified Code(s): M86.171 - Other acute osteomyelitis, right ankle and foot Is this a current diagnosis for this admission?: Yes Plan: 03/12/2019-the patient has ulcerations from peripheral arterial disease. He has been struggling with his peripheral arterial disease for many years. These particular ulcers have been present for quite a time. He is on antibiotic therapy. I did use this opportunity to have a long discussion with the patient regarding amputation. I like and the ulcerations as a tumor that with surgery could potentially resolve this issue permanently. This is especially true if you would take better care of himself with regard to smoking and cardiac medication compliance. He is seen by Dr. Valdivia. The patient is considering his options but I believe the plan will be for surgery. This may likely be a transmetatarsal amputation. We did discuss options to assess the leg. ESEQUIEL studies would not give any indication to the circulation in his foot. TCOM studies not available at this institution. They would be more appropriate to assess oxygenation of tissue in the lower extremity. An arteriogram would be unreasonable given his acute kidney injury. The patient is on broad-spectrum antibiotic therapy to cover methicillin-resistant staph aureus which is a possibility due to the chronicity of his ulcers. Blood cultures are pending. There is no drainage from the ulcers to culture. March 13, 2019-Dr. Murdock is seen the patient. He in fact is going for surgery this morning. We will continue his antibiotic therapy for the time raul hastings. He will not need 6 weeks of antibiotic therapy but should be able to discontinue his antibiotics within 7 to 10 days. 03/14/2019-surgical excision of infected bone and tissue yesterday. The surgical wound is left open to heal by intention. A negative pressure dressing may be considered in the future. Initial wound culture is growing gram-negative bacilli. We will keep cefepime and Zyvox in place for now until final identification and sensitivities available. (2) Plantar ulcer of right foot Qualifiers: Non-pressure ulcer stage: with necrosis of bone Qualified Code(s): L97.514 - Non-pressure chronic ulcer of other part of right foot with necrosis of bone Is this a current diagnosis for this admission?: Yes Plan: 03/12/2019-the patient is being seen at the wound care center for these ulcers. Evidently he was referred to the hospital yesterday because of abnormal test results. Post discharge he will likely continue to follow with the wound care clinic. March 13, 2019-surgery this morning 03/14/2019-surgically excised (3) Peripheral vascular disease Is this a current diagnosis for this admission?: Yes Plan: 03/12/2019-the patient has already had a stent in his right leg. He is on antiplatelet therapy. Is also on warfarin therapy for his atrial fibrillation. Statin therapy and antihypertensives are also present. We will continue current regimen. We will hold agents that might increased bleeding from surgery. March 13 2019-continue statin, antiplatelet and antihypertensive therapy 03/14/2019-the patient is on antiplatelet, antihypertensive and statin therapy. Resuming anticoagulation for his A. fib as well. (4) Coronary artery disease Qualifiers: Coronary Disease-Associated Artery/Lesion type: grayling artery [place] vs. transplanted heart: grayling heart Is this a current diagnosis for this admission?: Yes Plan: 03/12/2019-currently asymptomatic for any acute coronary syndrome. Continue current medications. Monitor for symptoms. March 13, 2019-remains stable and asymptomatic. Continue current regimen. 03/14/2019-continue current medication regimen (5) Acute renal injury due to circulatory failure Is this a current diagnosis for this admission?: Yes Plan: 03/12/2019-the patient is receiving IV fluids. He did have a minimally elevated lactic acid and this already is improving. The serum creatinine is improved this morning as well. We will continue IV fluids and monitor intake and output. We will be mindful of the possibility of congestive failure as well. March 13, 2019-creatinine is slightly better. Going for surgery this morning. We will continue to follow. 03/14/2019-we will resume diuretic therapy now that patient is postop. We will discontinue IV fluids. (6) Tobacco use disorder, severe, dependence Is this a current diagnosis for this admission?: Yes Plan: 03/12/2019-despite his significant peripheral vascular disease the patient continues to smoke. A nicotine patch will be made available. We will encourage smoking cessation. March 13, 2019-continue nicotine patch 03/14/2019-nicotine patch (7) Chronic atrial fibrillation Is this a current diagnosis for this admission?: Yes Plan: 03/12/2019-the patient has a history of chronic atrial fibrillation. By auscultation he seemed to be in a regular rhythm however I will obtain an EKG both to check the underlying rhythm and as part of preoperative clearance. Dr. Fontana has consulted Dr. Cagle as well March 13, 2019-continue current medications. Resume warfarin therapy after surgery. 03/14/2019-good control. Continue nicotine patch. (8) Chronic anticoagulation Is this a current diagnosis for this admission?: Yes Plan: 03/12/2019-warfarin currently on hold in anticipation of surgery. Resume postop with appropriate goals of INR between 2.03.0. March 13, 2019-the patient did receive vitamin K yesterday. He is getting 2 units of fresh frozen plasma today. Can resume anticoagulation after surgery. 03/14/2019-we will resume warfarin therapy. Will start with 10 mg of Coumadin for 2 days and then 5 mg daily. - Plan Summary Summary: Patient will be admitted to a medical floor and receive routine supportive and symptomatic cares. He will be treated with IV antibiotics utilizing meropenem and linezolid initially pending culture results. A surgical consultation will be obtained with Dr. Valdez. Patient will be followed with daily CBCs. He will be continued on his usual therapy for his chronic medical problems including coronary artery disease, peripheral vascular disease and atrial fibrillation. He will receive Nubain 5 to 10 mg IV every 3 hours on a as needed basis using a sliding scale for pain control. Smoking cessation is advised and counseled briefly at the bedside. A nicotine replacement patch is available for the patient's use, if he desires. - Time Time Spent with patient: 15-24 minutes Medications reviewed and adjusted accordingly: Yes
[2019-03-14] MEDS: NIFEDIPINE 30 MG TAB.ER.24 PO SCH ×2 (12:36→22:05)
[2019-03-14] MEDS: FUROSEMIDE 20 MG TABLET PO SCH (13:45)
--- NOTE | 2019-03-14 18:13 | PDOC PROGRESS REPORT ---
Subjective Progress Note for:: 03/14/19 Subjective:: pains operative site Reason For Visit: OSTEOMYELITIS,RIGHT FOOT PLANTAR ULCER Physical Exam Vital Signs: Temp Pulse Resp BP Pulse Ox 98.1 F 73 16 170/85 H 98 03/14/19 16:00 03/14/19 16:00 03/14/19 16:00 03/14/19 17:35 03/14/19 16:00 Intake & Output 03/13/19 03/14/19 03/15/19 07:59 06:59 06:59 Intake Total 1300 Output Total Balance 1300 Weight Exam: Packing with surgicel was removewd from dorsal part of incision on the right foot and wet to dry saline dressing placed. No inflammation at operative site. No bleeding . Results Laboratory Results: 03/14/19 05:36 03/14/19 05:36 03/13/19 03/14/19 03/14/19 07:00 05:36 05:36 WBC 8.9 RBC 4.08 L Hgb 12.3 L Hct 37.3 L MCV 91 MCH 30.3 MCHC 33.1 RDW 15.1 H Plt Count 274 Sodium 137.0 Potassium 4.3 Chloride 102 Carbon Dioxide 30 Anion Gap 5 BUN 11 Creatinine 1.37 H Est GFR ( Amer) > 60 Glucose 77 Calcium 8.0 L Blood Type O POSITIVE Antibody Screen NEGATIVE 03/14/19 05:36 Troponin I < 0.012 Assessment & Plan - Diagnosis (1) Chronic atrial fibrillation Is this a current diagnosis for this admission?: Yes (2) Coronary artery disease Qualifiers: Coronary Disease-Associated Artery/Lesion type: [place] artery [place] vs. transplanted heart: [place] heart Is this a current diagnosis for this admission?: Yes (3) Osteomyelitis Qualifiers: Osteomyelitis type: other acute Osteomyelitis location: foot Laterality: right Qualified Code(s): M86.171 - Other acute osteomyelitis, right ankle and foot Is this a current diagnosis for this admission?: Yes (4) Plantar ulcer of right foot Qualifiers: Non-pressure ulcer stage: with necrosis of bone Qualified Code(s): L97.514 - Non-pressure chronic ulcer of other part of right foot with necrosis of bone Is this a current diagnosis for this admission?: Yes (5) Tobacco use disorder, severe, dependence Is this a current diagnosis for this admission?: Yes (6) Wound of foot Is this a current diagnosis for this admission?: Yes (7) Acute renal injury due to circulatory failure Is this a current diagnosis for this admission?: Yes (8) Peripheral vascular disease Is this a current diagnosis for this admission?: Yes - Time Time Spent with patient: 15-24 minutes - Inpatient Certification Medical Necessity: Need for IV Antibiotics - Plan Summary Plan Summary: POD #1 Post right 4th toe and 3rd toe with MT amputation Plans: Continue IV antibiotics Wet to dry saline dressing over small open area on the dorsum of incision.
[2019-03-14] MEDS ORDERED: (PENDING PHARMACY ID) (Nifedipine [Nifedipine Er] 30 MG) PO SCH (22:00)
[2019-03-14] MEDS ORDERED: NIFEDIPINE 30 MG TAB.ER.24 PO SCH (22:00)
[2019-03-14] MEDS: WARFARIN SODIUM 5 MG TABLET PO SCH (22:02)
[2019-03-14] MEDS: ATORVASTATIN CALCIUM 40 MG TABLET PO SCH (22:03)
[2019-03-15] MEDS: HYDROCODONE/ACETAMINOPHEN 10-325 MG TABLET PO PRN ×3 (02:52→22:41)
[2019-03-15] MEDS: MEROPENEM 1 GM in NORMAL SALINE 50 ML IV SCH (05:32)
[2019-03-15] MEDS: PANTOPRAZOLE SODIUM 40 MG TABLET.DR PO SCH ×2 (05:32→16:59)
[2019-03-15 06:10] LABS: HEMATOCRIT 40.6 % (37.9-51.0); HEMOGLOBIN 13.5 g/dL (13.5-17.0); MEAN CORPUSCULAR HEMOGLOBIN 30.2 pg (27.0-33.4); MEAN CORPUSCULAR HGB CONC 33.2 g/dL (32.0-36.0); MEAN CORPUSCULAR VOLUME 91 fl (80-97); PLATELET COUNT 244 10^3/uL (150-450); RED BLOOD COUNT 4.47 10^6/uL (4.35-5.55); RED CELL DISTRIBUTION WIDTH 15.3 % (11.5-14.0); WHITE BLOOD COUNT 10.5 10^3/uL (4.0-10.5)
[2019-03-15 06:20] LABS: INTERNATIONAL RATION (INR) 1.23; PROTHROMBIN TIME 15.6 SEC (11.4-15.4)
[2019-03-15] MEDS: MORPHINE SULFATE 10 MG/ML INJ IV PRN (06:25)
[2019-03-15 06:26] LABS: ANION GAP 8 (5-19); BLOOD UREA NITROGEN 16 mg/dL (7-20); CALCIUM 8.4 mg/dL (8.4-10.2); CARBON DIOXIDE 27 mmol/L (22-30); CHLORIDE 100 mmol/L (98-107); GLUCOSE 87 mg/dL (75-110); POTASSIUM 4.2 mmol/L (3.6-5.0)
[2019-03-15 07:10] LABS: APPEARANCE,URINE CLEAR; BILIRUBIN,URINE NEGATIVE (NEGATIVE); COLOR,URINE COLORLESS; GLUCOSE, URINE 50 mg/dL (NEGATIVE); KETONES,URINE NEGATIVE (NEGATIVE); LEUKOCYTE ESTERASE,URINE NEGATIVE (NEGATIVE); NITRITE,URINE NEGATIVE (NEGATIVE); PROTEIN,URINE NEGATIVE (NEGATIVE); URINE SPECIFIC GRAVITY 1.005; UROBILINOGEN,URINE NEGATIVE mg/dL (<2.0)
[2019-03-15 07:14] LABS: ADD MANUAL MICROSCOPIC YES; WBC,URINE NONE SEEN /HPF
[2019-03-15 07:15] LABS: RBC,URINE RARE /HPF
[2019-03-15] MEDS: LINEZOLID 600 MG/300 ML RTUPB IV SCH (09:22)
[2019-03-15] MEDS: NIFEDIPINE 30 MG TAB.ER.24 PO SCH ×2 (09:23→22:37)
[2019-03-15] MEDS: LISINOPRIL 10 MG TABLET PO SCH ×2 (09:23→22:37)
[2019-03-15] MEDS: FUROSEMIDE 20 MG TABLET PO SCH (09:23)
[2019-03-15] MEDS: ASPIRIN 81 MG TABLET, ENT COATED PO SCH (09:23)
[2019-03-15] MEDS: PENTOXIFYLLINE 400 MG TABLET.SA PO SCH ×3 (09:23→17:22)
[2019-03-15] MEDS: METOPROLOL TARTRATE 100 MG TABLET PO SCH ×2 (09:23→22:37)
--- NOTE | 2019-03-15 10:49 | PDOC PROGRESS REPORT ---
Subjective Progress Note for:: 03/15/19 Subjective:: The patient is resting comfortably in bed. Pain is tolerable. No new medical issues at this time. Culture of right foot growing gram-negative bacilli at this time. The patient states that he is able to ambulate with heel weightbearing on the right leg and does not utilize his cane very much. Reason For Visit: OSTEOMYELITIS,RIGHT FOOT PLANTAR ULCER Physical Exam Vital Signs: Temp Pulse Resp BP Pulse Ox 98.4 F 91 12 130/82 H 96 03/15/19 07:50 03/15/19 07:50 03/15/19 07:50 03/15/19 07:50 03/15/19 07:50 Intake & Output 03/14/19 03/15/19 03/16/19 06:59 06:59 06:59 Intake Total 4390 Output Total 1250 Balance 3140 Weight 90.9 kg General appearance: PRESENT: no acute distress, cooperative, well-developed Head exam: PRESENT: atraumatic, normocephalic Teeth exam: PRESENT: poor dentation Respiratory exam: PRESENT: clear to auscultation manuela, symmetrical, unlabored. ABSENT: accessory muscle use, rales, rhonchi, tachypnea, wheezes Cardiovascular exam: PRESENT: irregular rhythm GI/Abdominal exam: PRESENT: normal bowel sounds, soft. ABSENT: distended, guarding, tenderness Rectal exam: PRESENT: deferred Gentrourinary exam: ABSENT: indwelling catheter Extremities exam: PRESENT: full ROM, other - Dressing on right foot. ABSENT: joint swelling, pedal edema Musculoskeletal exam: PRESENT: ambulatory, full ROM, normal inspection Neurological exam: PRESENT: alert, awake, oriented to person, oriented to place, oriented to time, oriented to situation, CN II-XII grossly intact Psychiatric exam: PRESENT: appropriate affect, normal mood. ABSENT: agitated, anxious Skin exam: PRESENT: dry, warm, other - Right foot wound. Dressing in place. I did not unwrap the dressing this morning.. ABSENT: rash Results Laboratory Results: 03/15/19 05:56 03/15/19 05:56 03/13/19 03/15/19 03/15/19 07:00 05:56 05:56 WBC 10.5 RBC 4.47 Hgb 13.5 Hct 40.6 MCV 91 MCH 30.2 MCHC 33.2 RDW 15.3 H Plt Count 244 Sodium 134.9 L Potassium 4.2 Chloride 100 Carbon Dioxide 27 Anion Gap 8 BUN 16 Creatinine 1.47 H Est GFR ( Amer) 59 L Glucose 87 Calcium 8.4 Urine Color Urine Appearance Urine pH Ur Specific [place] Urine Protein Urine Glucose (UA) Urine Ketones Urine Blood Urine Nitrite Ur Leukocyte Esterase Stool Occult Blood Blood Type O POSITIVE Antibody Screen NEGATIVE 03/15/19 03/15/19 06:30 07:00 WBC RBC Hgb Hct MCV MCH MCHC RDW Plt Count Sodium Potassium Chloride Carbon Dioxide Anion Gap BUN Creatinine Est GFR ( Amer) Glucose Calcium Urine Color COLORLESS Urine Appearance CLEAR Urine pH 8.0 Ur Specific [place] 1.005 Urine Protein NEGATIVE Urine Glucose (UA) 50 H Urine Ketones NEGATIVE Urine Blood SMALL H Urine Nitrite NEGATIVE Ur Leukocyte Esterase NEGATIVE Stool Occult Blood POSITIVE Blood Type Antibody Screen 03/14/19 05:36 Troponin I < 0.012 Assessment and Plan - Diagnosis (1) Osteomyelitis Qualifiers: Osteomyelitis type: other acute Osteomyelitis location: foot Laterality: right Qualified Code(s): M86.171 - Other acute osteomyelitis, right ankle and foot Is this a current diagnosis for this admission?: Yes Plan: 03/12/2019-the patient has ulcerations from peripheral arterial disease. He has been struggling with his peripheral arterial disease for many years. These particular ulcers have been present for quite a time. He is on antibiotic therapy. I did use this opportunity to have a long discussion with the patient regarding amputation. I like and the ulcerations as a tumor that with surgery could potentially resolve this issue permanently. This is especially true if you would take better care of himself with regard to smoking and cardiac medication compliance. He is seen by Dr. Valdivia. The patient is considering his options but I believe the plan will be for surgery. This may likely be a transmetatarsal amputation. We did discuss options to assess the leg. ESEQUIEL studies would not give any indication to the circulation in his foot. TCOM studies not available at this institution. They would be more appropriate to assess oxygenation of tissue in the lower extremity. An arteriogram would be unreasonable given his acute kidney injury. The patient is on broad-spectrum antibiotic therapy to cover methicillin-resistant staph aureus which is a possibility due to the chronicity of his ulcers. Blood cultures are pending. There is no drainage from the ulcers to culture. March 13, 2019-Dr. Murdock is seen the patient. He in fact is going for surgery this morning. We will continue his antibiotic therapy for the time being. He will not need 6 weeks of antibiotic therapy but should be able to discontinue his antibiotics within 7 to 10 days. 03/14/2019-surgical excision of infected bone and tissue yesterday. The surgical wound is left open to heal by intention. A negative pressure dressing may be considered in the future. Initial wound culture is growing gram-negative bacilli. We will keep cefepime and Zyvox in place for now until final identification and sensitivities available. 03/15/2019-status post excision of infected bone and tissue. Postop day 2. I spoke with the microbiology lab. The culture reveals Proteus mirabilis. It was peters sensitive. In addition, there appear to be anaerobic organisms likely streptococcal. I will discontinue the Zyvox and meropenem and initiate Unasyn therapy. (2) Plantar ulcer of right foot Qualifiers: Non-pressure ulcer stage: with necrosis of bone Qualified Code(s): L97.514 - Non-pressure chronic ulcer of other part of right foot with necrosis of bone Is this a current diagnosis for this admission?: Yes Plan: 03/12/2019-the patient is being seen at the wound care center for these ulcers. Evidently he was referred to the hospital yesterday because of abnormal test results. Post discharge he will likely continue to follow with the wound care clinic. March 13, 2019-surgery this morning 03/14/2019-surgically excised (3) Peripheral vascular disease Is this a current diagnosis for this admission?: Yes Plan: 03/12/2019-the patient has already had a stent in his right leg. He is on antiplatelet therapy. Is also on warfarin therapy for his atrial fibrillation. Statin therapy and antihypertensives are also present. We will continue current regimen. We will hold agents that might increased bleeding from surgery. March 13 2019-continue statin, antiplatelet and antihypertensive therapy 03/14/2019-the patient is on antiplatelet, antihypertensive and statin therapy. Resuming anticoagulation for his A. fib as well. 03/15/2019-we will continue baseline medications at this time. (4) Coronary artery disease Qualifiers: Coronary Disease-Associated Artery/Lesion type: [place] artery [place] vs. transplanted heart: [place] heart Is this a current diagnosis for this admission?: Yes Plan: 03/12/2019-currently asymptomatic for any acute coronary syndrome. Continue current medications. Monitor for symptoms. March 13, 2019-remains stable and asymptomatic. Continue current regimen. 03/14/2019-continue current medication regimen 03/15/2019-no cardiac symptoms. Continue current medications. (5) Acute renal injury due to circulatory failure Is this a current diagnosis for this admission?: Yes Plan: 03/12/2019-the patient is receiving IV fluids. He did have a minimally elevated lactic acid and this already is improving. The serum creatinine is improved this morning as well. We will continue IV fluids and monitor intake and output. We will be mindful of the possibility of congestive failure as well. March 13, 2019-creatinine is slightly better. Going for surgery this morning. We will continue to follow. 03/14/2019-we will resume diuretic therapy now that patient is postop. We will discontinue IV fluids. 03/15/2019-seems to be at baseline. GFR is 59 today. Continue current regimen and monitor renal function. (6) Tobacco use disorder, severe, dependence Is this a current diagnosis for this admission?: Yes Plan: 03/12/2019-despite his significant peripheral vascular disease the patient continues to smoke. A nicotine patch will be made available. We will encourage smoking cessation. March 13, 2019-continue nicotine patch 03/14/2019-nicotine patch 03/15/2019-encourage tobacco cessation (7) Chronic atrial fibrillation Is this a current diagnosis for this admission?: Yes Plan: 03/12/2019-the patient has a history of chronic atrial fibrillation. By auscultation he seemed to be in a regular rhythm however I will obtain an EKG both to check the underlying rhythm and as part of preoperative clearance. Dr. Fontana has consulted Dr. Cagle as well March 13, 2019-continue current medications. Resume warfarin therapy after surgery. 03/14/2019-good control. Continue nicotine patch. 03/15/2019-reasonable rate control (8) Chronic anticoagulation Is this a current diagnosis for this admission?: Yes Plan: 03/12/2019-warfarin currently on hold in anticipation of surgery. Resume postop with appropriate goals of INR between 2.03.0. March 13, 2019-the patient did receive vitamin K yesterday. He is getting 2 units of fresh frozen plasma today. Can resume anticoagulation after surgery. 03/14/2019-we will resume warfarin therapy. Will start with 10 mg of Coumadin for 2 days and then 5 mg daily. 03/15/2019-patient will receive 10 mg again today and start 5 mg tomorrow. Check INR Friday. (9) Hypertension Qualifiers: Hypertension type: essential hypertension Qualified Code(s): I10 - Essential (primary) hypertension Is this a current diagnosis for this admission?: Yes Plan: 03/15/2019-despite several medications his blood pressure still up. Dr. Cagle increased his nifedipine. We will continue to monitor his blood pressure. - Plan Summary Summary: Patient will be admitted to a medical floor and receive routine supportive and symptomatic cares. He will be treated with IV antibiotics utilizing meropenem and linezolid initially pending culture results. A surgical consultation will be obtained with Dr. Valdez. Patient will be followed with daily CBCs. He will be continued on his usual therapy for his chronic medical problems including coronary artery disease, peripheral vascular disease and atrial fibrillation. He will receive Nubain 5 to 10 mg IV every 3 hours on a as needed basis using a sliding scale for pain control. Smoking cessation is advised and counseled briefly at the bedside. A nicotine replacement patch is available for the patient's use, if he desires. - Time Time Spent with patient: 15-24 minutes Medications reviewed and adjusted accordingly: Yes Anticipated discharge: Home with Homehealth
[2019-03-15] MEDS: AMPICILLIN SODIUM/SULBACTAM NA 1.5 GM in NORMAL SALINE 50 ML IV SCH ×3 (12:05→23:06)
[2019-03-15] MEDS ORDERED: FUROSEMIDE 20 MG TABLET PO SCH (12:30)
[2019-03-15] MEDS ORDERED: CLINDAMYCIN 300 MG/D5W RTU 300 MG/50 ML RTUPB IV SCH (14:00)
--- NOTE | 2019-03-15 22:00 | Progress Note ---
Provider Note Provider Note: CARDIOLOGY PROGRESS NOTE by Dr. Camelia Cagle on 03/15/2019. SUBJECTIVE: Patient denies any chest pain or discomfort. There is no shortness of breath and no acute exacerbation of COPD. The patient has been restarted on Coumadin. There is no TIA CVA symptoms. He continues to be in atrial fibrillation with controlled ventricular response. The patient's blood pressure is well controlled on nifedipine. PHYSICAL EXAMINATION: The patient is mildly obese. In no acute distress. Selected Entries 03/15/19 07:50 Temperature 98.4 F Temperature Oral Source Pulse Rate 91 Respiratory 12 Rate Blood Pressure 130/82 H Blood Pressure 98 Mean BP Location Left Arm BP Position Sitting O2 Sat by Pulse 96 Oximetry Oxygen Delivery Room Air Method HEAD: Head is atraumatic normocephalic. Eyes: Pupils are equal round regular reactive light accommodation extraocular movements are normal there is no congenital pallor there is no scleral icterus. Ears: External auditory canals are clear, there are no lesions of the pinna. Nose: No deviated nasal septum and no inflammation of the nasal mucous membrane. Mouth: Mucous membranes of mouth are moist tongue is moist there is no ulcers there is no bleeding from the gums. Throat: There is no redness of the oropharynx there is no exudates. Skin: There is no petechia or ecchymosis there is no skin lesions or skin rashes. Neck: Neck is supple there is no JVD carotids equal there is no bruit there is no lymphadenopathy there is no neck stiffness. There is no goiter trachea central lungs: Lungs are clear to auscultation percussion there is no accessory muscles of respiration in use. There is no rhonchi rales or wheezing. There is no chest wall tenderness. HEART: S1-S2 is heard there is no S3 gallop there is no S4 gallop S1 is of normal intensity. There is no rub. The systolic murmur in the left sternal border and apex without radiation. Abdomen: Abdomen is soft nontender there is no paraspinal megaly bowel sounds well heard there is no tender areas of masses. There is no rebound guarding or rigidity. Extremities: Femorals are very much decreased. There is no femoral bruits. Leg pulses are difficult to palpate. There is dressing in the right foot.. There is no pedal edema there is no DVT. There is no cyanosis or clubbing there is no DVT or cellulitis. There is no calf tenderness. CLOTH CUTTER: The patient is awake alert oriented 3 with no focal deficits. Psychiatric: The patient judgment and insight are intact and her affect is normal. Labs- All tests 24 hr 03/13/19 03/15/19 03/15/19 07:00 05:56 05:56 WBC 10.5 RBC 4.47 Hgb 13.5 Hct 40.6 MCV 91 MCH 30.2 MCHC 33.2 RDW 15.3 H Plt Count 244 PT INR Sodium 134.9 L Potassium 4.2 Chloride 100 Carbon Dioxide 27 Anion Gap 8 BUN 16 Creatinine 1.47 H Est GFR ( Amer) 59 L Est GFR (MDRD) Non-Af 49 L Glucose 87 Calcium 8.4 Urine Color Urine Appearance Urine pH Ur Specific [place] Urine Protein Urine Glucose (UA) Urine Ketones Urine Blood Urine Nitrite Urine Bilirubin Urine Urobilinogen Ur Leukocyte Esterase Urine RBC Urine WBC Urine Ascorbic Acid Stool Occult Blood Blood Type O POSITIVE Antibody Screen NEGATIVE 03/15/19 03/15/19 03/15/19 05:56 06:30 07:00 WBC RBC Hgb Hct MCV MCH MCHC RDW Plt Count PT 15.6 H INR 1.23 Sodium Potassium Chloride Carbon Dioxide Anion Gap BUN Creatinine Est GFR ( Amer) Est GFR (MDRD) Non-Af Glucose Calcium Urine Color COLORLESS Urine Appearance CLEAR Urine pH 8.0 Ur Specific [place] 1.005 Urine Protein NEGATIVE Urine Glucose (UA) 50 H Urine Ketones NEGATIVE Urine Blood SMALL H Urine Nitrite NEGATIVE Urine Bilirubin NEGATIVE Urine Urobilinogen NEGATIVE Ur Leukocyte Esterase NEGATIVE Urine RBC RARE Urine WBC NONE SEEN Urine Ascorbic Acid NEGATIVE Stool Occult Blood POSITIVE Blood Type Antibody Screen IMPRESSION/RECOMMENDATION: 1. Chronic osteomyelitis and diabetic ulcer of the right third metatarsal/toe: Status post amputation of the third and fourth toes on the right foot. 2. Coronary artery disease. History of prior myocardial infarction no anginal symptoms. Continue current anti-CAD medication. 3. Chronic atrial fibrillation: Controlled ventricular response. The patient's Coumadin has been restarted. 4. Hypertension: Blood pressure appears to be controlled at present. 5. Peripheral arterial disease: 6. Chronic kidney disease stage III: Seems to be stable. Avoid nephrotoxic drugs. 7. Hyperlipidemia. 8. History of tobacco abuse disorder. Tobacco cessation counseling given again. Ill effects of tobacco was reinforced t again. Medications reviewed. Medical regimen and management plan discussed with the attending physician in the surgical list on the case. Medical decision making is of moderate complexity. 40 minutes spent on this patient more than 50% of time spent in direct patient care. Will sign off will follow the patient in the office in a week or 2.
[2019-03-15] MEDS: ATORVASTATIN CALCIUM 40 MG TABLET PO SCH (22:37)
[2019-03-15] MEDS: WARFARIN SODIUM 5 MG TABLET PO SCH (22:38)
[2019-03-15] MEDS: LOPERAMIDE HCL 2 MG CAPSULE PO PRN (22:48)
[2019-03-16 05:47] LABS: INTERNATIONAL RATION (INR) 1.23; PROTHROMBIN TIME 15.6 SEC (11.4-15.4)
[2019-03-16] MEDS: PANTOPRAZOLE SODIUM 40 MG TABLET.DR PO SCH ×2 (05:47→18:48)
[2019-03-16] MEDS: AMPICILLIN SODIUM/SULBACTAM NA 1.5 GM in NORMAL SALINE 50 ML IV SCH ×4 (05:47→23:41)
[2019-03-16] MEDS: HYDROCODONE/ACETAMINOPHEN 10-325 MG TABLET PO PRN ×4 (05:52→21:47)
[2019-03-16] MEDS: METOPROLOL TARTRATE 100 MG TABLET PO SCH ×2 (10:15→21:38)
[2019-03-16] MEDS: PENTOXIFYLLINE 400 MG TABLET.SA PO SCH ×3 (10:15→18:48)
[2019-03-16] MEDS: ASPIRIN 81 MG TABLET, ENT COATED PO SCH (10:16)
[2019-03-16] MEDS: FUROSEMIDE 20 MG TABLET PO SCH (10:16)
[2019-03-16] MEDS: NIFEDIPINE 30 MG TAB.ER.24 PO SCH ×2 (10:16→21:38)
[2019-03-16] MEDS: LISINOPRIL 10 MG TABLET PO SCH ×2 (10:18→21:38)
[2019-03-16] MEDS: MORPHINE SULFATE 10 MG/ML INJ IV PRN (15:27)
--- NOTE | 2019-03-16 18:05 | PDOC PROGRESS REPORT ---
Subjective Progress Note for:: 03/16/19 Subjective:: This is a 63-year-old male who was admitted for right foot osteomyelitis. He was started on IV antibiotics. He underwent amputation of the third and fourth toes of the right foot with debridement and resection of the midportion of the metatarsal bone on 03/13. No acute event overnight. He denies acute complaints. He continues to improve. Cultures growing Proteus and gram-positive cocci. Anticipate switching to oral antibiotics and discharge in the next 24 hours pending final culture results. Reason For Visit: OSTEOMYELITIS,RIGHT FOOT PLANTAR ULCER Physical Exam Vital Signs: Temp Pulse Resp BP Pulse Ox 98.4 F 76 18 151/89 H 99 03/16/19 10:53 03/16/19 10:53 03/16/19 10:53 03/16/19 10:53 03/16/19 10:53 Intake & Output 03/15/19 03/16/19 03/17/19 06:59 06:59 06:59 Intake Total 4390 1317 Output Total 1250 150 Balance 3140 1167 Weight 200 lb 6.403 oz 208 lb 8.917 oz General appearance: PRESENT: no acute distress, well-developed, well-nourished Head exam: PRESENT: atraumatic, normocephalic Eye exam: PRESENT: conjunctiva pink, EOMI, PERRLA. ABSENT: scleral icterus Ear exam: PRESENT: normal external ear exam Mouth exam: PRESENT: moist, tongue midline Neck exam: ABSENT: carotid bruit, JVD, lymphadenopathy, thyromegaly Respiratory exam: PRESENT: clear to auscultation manuela. ABSENT: rales, rhonchi, wheezes Cardiovascular exam: PRESENT: RRR. ABSENT: diastolic murmur, rubs, systolic murmur Pulses: PRESENT: normal dorsalis pedis pul GI/Abdominal exam: PRESENT: normal bowel sounds, soft. ABSENT: distended, guarding, mass, organolmegaly, rebound, tenderness Rectal exam: PRESENT: deferred Extremities exam: PRESENT: other - dressing on right foot Neurological exam: PRESENT: alert, awake, oriented to person, oriented to place, oriented to time, oriented to situation, CN II-XII grossly intact. ABSENT: motor sensory deficit Results Laboratory Results: 03/15/19 05:56 03/15/19 05:56 03/13/19 12:03 Foot - Tissue (Surgical) Gram Stain - Final 03/14/19 05:36 Troponin I < 0.012 Assessment and Plan - Diagnosis (1) Osteomyelitis Qualifiers: Osteomyelitis type: other acute Osteomyelitis location: foot Laterality: right Qualified Code(s): M86.171 - Other acute osteomyelitis, right ankle and foot Is this a current diagnosis for this admission?: Yes Plan: Cultures growing Proteus and gram-positive cocci. Anticipate switching to oral antibiotics and discharge in the next 24 hours pending final culture results. (2) Chronic atrial fibrillation Is this a current diagnosis for this admission?: Yes Plan: Coumadin resumed. (3) Coronary artery disease Qualifiers: Coronary Disease-Associated Artery/Lesion type: [place] artery [place] vs. transplanted heart: [place] heart Is this a current diagnosis for this admission?: Yes Plan: Stable. Continue home meds. (4) Hypertension Qualifiers: Hypertension type: essential hypertension Qualified Code(s): I10 - Essential (primary) hypertension Is this a current diagnosis for this admission?: Yes Plan: Blood pressures better. Continue lisinopril, metoprolol and nifedipine.
[2019-03-16] MEDS: ATORVASTATIN CALCIUM 40 MG TABLET PO SCH (21:38)
[2019-03-16] MEDS ORDERED: WARFARIN SODIUM 5 MG TABLET PO SCH (22:00)
[2019-03-17] MEDS: PANTOPRAZOLE SODIUM 40 MG TABLET.DR PO SCH (05:10)
[2019-03-17] MEDS: AMPICILLIN SODIUM/SULBACTAM NA 1.5 GM in NORMAL SALINE 50 ML IV SCH ×2 (05:10→12:19)
[2019-03-17] MEDS: HYDROCODONE/ACETAMINOPHEN 10-325 MG TABLET PO PRN (06:36)
[2019-03-17 06:48] LABS: INTERNATIONAL RATION (INR) 1.77; PROTHROMBIN TIME 20.8 SEC (11.4-15.4)
[2019-03-17] MEDS: ASPIRIN 81 MG TABLET, ENT COATED PO SCH (09:46)
[2019-03-17] MEDS: NIFEDIPINE 30 MG TAB.ER.24 PO SCH (09:47)
[2019-03-17] MEDS: FUROSEMIDE 20 MG TABLET PO SCH (09:47)
[2019-03-17] MEDS: METOPROLOL TARTRATE 100 MG TABLET PO SCH (09:48)
[2019-03-17] MEDS: LISINOPRIL 10 MG TABLET PO SCH (09:48)
[2019-03-17] MEDS: PENTOXIFYLLINE 400 MG TABLET.SA PO SCH (09:48)
[2019-03-17] MEDS: MORPHINE SULFATE 10 MG/ML INJ IV PRN (09:49)
[2019-03-17 11:38] VITALS: BP 159/89
--- NOTE | 2019-03-18 17:58 | PDOC DISCHARGE SUMMARY ---
Impression - Admit/DC Date/PCP Admission Date/Primary Care Provider: 03/11/19 23:27 RIMA REIS DO Discharge Date: 03/17/19 - Discharge Diagnosis (1) Osteomyelitis Is this a current diagnosis for this admission?: Yes (2) Chronic atrial fibrillation Is this a current diagnosis for this admission?: Yes (3) Coronary artery disease Is this a current diagnosis for this admission?: Yes (4) Hypertension Is this a current diagnosis for this admission?: Yes - Additional Information Resuscitation Status: Full Code Discharge Diet: Cardiac Discharge Activity: Balance Activity w/Rest, No Driving, Keep Legs Elevated, Slowly Increase Activity, No tub bath Referrals: WOUND CARE [Outside] - 03/18/19 11:00 am (IF TRANSPORTATION IS AN ISSUE GIVE WOUND CARE CLINIC A CALL.) RIMA REIS DO [Primary Care Provider] - 03/19/19 4:00 pm Prescriptions: Amoxicillin/Potassium Clav [Augmentin 500-125 Tablet] 1 each PO Q12 7 Days #14 tablet Acetaminophen with Codeine [Tylenol with Codeine #3 Tablet] 1 tab PO Q6HP PRN #16 PRN Reason: For Pain Home Medications: Atorvastatin Calcium [Lipitor 40 mg Tablet] 40 mg PO QHS 05/14/18 Furosemide [Lasix] 20 mg PO DAILY 05/14/18 Nifedipine [Nifedipine ER] 30 mg PO QHS 05/14/18 Warfarin Sodium [Coumadin 5 mg Tablet] 5 mg PO QHS 05/14/18 Aspirin [Ecotrin 81 mg EC Tablet] 81 mg PO DAILY tabec 05/16/18 Metoprolol Tartrate [Lopressor 100 mg Tablet] 100 mg PO Q12 tablet 05/16/18 Cyclobenzaprine HCl [Flexeril 10 mg Tablet] 10 mg PO Q8HP PRN 03/12/19 Lisinopril [Prinivil 40 mg Tablet] 40 mg PO Q12 03/12/19 Loperamide HCl [Loperamide] 4 mg PO DAILY 03/12/19 Pentoxifylline 400 mg PO TID 03/12/19 Acetaminophen with Codeine [Tylenol with Codeine #3 Tablet] 1 tab PO Q6HP PRN #16 03/17/19 Amoxicillin/Potassium Clav [Augmentin 500-125 Tablet] 1 each PO Q12 7 Days #14 tablet 03/17/19 History of Present Illiness History of Present Illness: Admitting hospitalist's H&P: FRANCIE RUVALCABA is a 63 year old male who presented to the emergency room from the wound care clinic due to a chronic ulceration of his right foot which has re sulted in osteomyelitis of the right third and fourth metatarsals in the right third proximal phalanx. He denies acute symptoms and has no associated or accompanying signs and symptoms related to his wound. He admits prior similar problems related to wounds because by his peripheral vascular disease. He denies identification of any additional aggravating or ameliorating factors for his foot wound. In the emergency room he was found to have a plantar ulceration of the right forefoot and his white blood count was noted to be elevated at 15,000. Patient was subsequently admitted to the hospital for further evaluation and treatment after blood cultures were obtained and a wound culture has apparently been obtained at the wound care clinic. Hospital Course Hospital Course: This is a 63-year-old male who was admitted for right foot osteomyelitis. He was started on IV antibiotics. He underwent amputation of the third and fourth toes of the right foot with debridement and resection of the midportion of the metatarsal bone on 03/13. Wound cultures grew Proteus and Enterococcus He will be discharged on Augmentin. He will closely follow-up with the wound clinic. Physical Exam Vital Signs: Temp Pulse Resp BP Pulse Ox 98.4 F 79 17 159/89 H 100 03/17/19 11:38 03/17/19 11:38 03/17/19 11:38 03/17/19 11:38 03/17/19 11:38 Intake & Output 03/16/19 03/17/19 03/18/19 06:59 06:59 06:59 Intake Total 1317 2113 530 Output Total 150 1050 200 Balance 1167 1063 330 Weight 208 lb 8.917 oz 215 lb 9.793 oz General appearance: PRESENT: no acute distress, well-developed, well-nourished Head exam: PRESENT: atraumatic, normocephalic Eye exam: PRESENT: conjunctiva pink, EOMI, PERRLA. ABSENT: scleral icterus Ear exam: PRESENT: normal external ear exam Mouth exam: PRESENT: moist, tongue midline Neck exam: ABSENT: carotid bruit, JVD, lymphadenopathy, thyromegaly Respiratory exam: PRESENT: clear to auscultation manuela. ABSENT: rales, rhonchi, wheezes Cardiovascular exam: PRESENT: irregular rhythm. ABSENT: systolic murmur Pulses: PRESENT: normal dorsalis pedis pul GI/Abdominal exam: PRESENT: normal bowel sounds, soft. ABSENT: distended, guarding, mass, organolmegaly, rebound, tenderness Rectal exam: PRESENT: deferred Neurological exam: PRESENT: alert, awake, oriented to person, oriented to place, oriented to time, oriented to situation, CN II-XII grossly intact. ABSENT: motor sensory deficit Results Laboratory Results: WBC 10.5 10^3/uL (4.0-10.5) 03/15/19 05:56 RBC 4.47 10^6/uL (4.35-5.55) 03/15/19 05:56 Hgb 13.5 g/dL (13.5-17.0) 03/15/19 05:56 Hct 40.6 % (37.9-51.0) 03/15/19 05:56 MCV 91 fl (80-97) 03/15/19 05:56 MCH 30.2 pg (27.0-33.4) 03/15/19 05:56 MCHC 33.2 g/dL (32.0-36.0) 03/15/19 05:56 RDW 15.3 % (11.5-14.0) H 03/15/19 05:56 Plt Count 244 10^3/uL (150-450) 03/15/19 05:56 Lymph % (Auto) 17.5 % (13-45) 03/11/19 16:28 Early % (Auto) 5.6 % (3-13) 03/11/19 16:28 Eos % (Auto) 0.7 % (0-6) 03/11/19 16:28 Baso % (Auto) 0.6 % (0-2) 03/11/19 16:28 Absolute Neuts (auto) 11.6 10^3/uL (1.7-8.2) H 03/11/19 16:28 Absolute Lymphs (auto) 2.7 10^3/uL (0.5-4.7) 03/11/19 16:28 Absolute Monos (auto) 0.9 10^3/uL (0.1-1.4) 03/11/19 16:28 Absolute Eos (auto) 0.1 10^3/uL (0.0-0.6) 03/11/19 16:28 Absolute Basos (auto) 0.1 10^3/uL (0.0-0.2) 03/11/19 16:28 Seg Neutrophils % 75.6 % (42-78) 03/11/19 16:28 ESR Cancelled 03/13/19 05:42 PT 20.8 SEC (11.4-15.4) H 03/17/19 06:20 INR 1.77 03/17/19 06:20 Sodium 134.9 mmol/L (137-145) L 03/15/19 05:56 Potassium 4.2 mmol/L (3.6-5.0) 03/15/19 05:56 Chloride 100 mmol/L (98-107) 03/15/19 05:56 Carbon Dioxide 27 mmol/L (22-30) 03/15/19 05:56 Anion Gap 8 (5-19) 03/15/19 05:56 BUN 16 mg/dL (7-20) 03/15/19 05:56 Creatinine 1.47 mg/dL (0.52-1.25) H 03/15/19 05:56 Est GFR ( Amer) 59 (>60) L 03/15/19 05:56 Est GFR (MDRD) Non-Af 49 (>60) L 03/15/19 05:56 Glucose 87 mg/dL (75-110) 03/15/19 05:56 Lactic Acid 2.3 mmol/L (0.7-2.1) H 03/11/19 16:28 Calcium 8.4 mg/dL (8.4-10.2) 03/15/19 05:56 Magnesium 2.0 mg/dL (1.6-2.3) 03/13/19 05:42 Total Bilirubin 0.7 mg/dL (0.2-1.3) 03/11/19 16:28 Direct Bilirubin 0.3 mg/dL (0.0-0.4) 03/11/19 16:28 Neonat Total Bilirubin Not Reportable 03/11/19 16:28 Neonat Direct Bilirubin Not Reportable 03/11/19 16:28 Neonat Indirect Bili Not Reportable 03/11/19 16:28 AST 27 U/L (17-59) 03/11/19 16:28 ALT 19 U/L (<50) 03/11/19 16:28 Alkaline Phosphatase 137 U/L (38-126) H 03/11/19 16:28 Troponin I < 0.012 ng/mL 03/14/19 05:36 Total Protein 7.7 g/dL (6.3-8.2) 03/11/19 16:28 Albumin 3.9 g/dL (3.5-5.0) 03/11/19 16:28 Triglycerides 146 mg/dL (<150) 03/13/19 05:42 Cholesterol 96.59 mg/dL (0-200) 03/13/19 05:42 LDL Cholesterol Direct 54 mg/dL (<100) 03/13/19 05:42 VLDL Cholesterol 29.0 mg/dL (-31) 03/13/19 05:42 HDL Cholesterol 23 mg/dL (>40) L 03/13/19 05:42 TSH 1.90 uIU/mL (0.47-4.68) 03/13/19 05:42 Urine Color COLORLESS 03/15/19 06:30 Urine Appearance CLEAR 03/15/19 06:30 Urine pH 8.0 (5.0-9.0) 03/15/19 06:30 Ur Specific [place] 1.005 03/15/19 06:30 Urine Protein NEGATIVE mg/dL (NEGATIVE) 03/15/19 06:30 Urine Glucose (UA) 50 mg/dL (NEGATIVE) H 03/15/19 06:30 Urine Ketones NEGATIVE mg/dL (NEGATIVE) 03/15/19 06:30 Urine Blood SMALL (NEGATIVE) H 03/15/19 06:30 Urine Nitrite NEGATIVE (NEGATIVE) 03/15/19 06:30 Urine Nitrite (Reflex) NEGATIVE (NEGATIVE) 03/11/19 19:30 Urine Bilirubin NEGATIVE (NEGATIVE) 03/15/19 06:30 Urine Urobilinogen NEGATIVE mg/dL (<2.0) 03/15/19 06:30 Ur Leukocyte Esterase NEGATIVE (NEGATIVE) 03/15/19 06:30 Leukocyte Esterase Rfl NEGATIVE (NEGATIVE) 03/11/19 19:30 Urine RBC (Auto) 2 /HPF 03/11/19 19:30 U Hyaline Cast (Auto) 16 /LPF 03/11/19 19:30 Urine RBC RARE /HPF 03/15/19 06:30 Urine WBC NONE SEEN /HPF 03/15/19 06:30 Urine WBC (Reflex) 1 /HPF 03/11/19 19:30 Urine Mucus (Auto) FEW /LPF 03/11/19 19:30 Urine Ascorbic Acid NEGATIVE (NEGATIVE) 03/15/19 06:30 Stool Occult Blood POSITIVE (NEGATIVE) 03/15/19 07:00 Blood Type O POSITIVE 03/13/19 07:00 Antibody Screen NEGATIVE 03/13/19 07:00 03/14/19 05:36 Troponin I < 0.012 Stroke Is this a Stroke Patient?: No Acute Heart Failure - Is this a Heart Failure Patient?: No
== END 2019-03-17 13:15 | disposition home health service (06) | DRG 504 ==
LOC: ER 14:42 → EH 23:27 → 4W 03-12 08:44 → 4N 03-17 06:05
PROVIDERS: ADMIT Emergency Medicine; ATTEND Internal Medicine
PROC: 0Y6V0Z2 Detachment at Right 4th Toe, Mid, Open Approach (ICD-10-PCS; 2019-03-13)
PROC: 30233K1 Transfusion of Nonautologous Frozen Plasma into Peripheral Vein, Percutaneous Approach (ICD-10-PCS; 2019-03-13)
PROC: 0Y6T0Z2 Detachment at Right 3rd Toe, Mid, Open Approach (ICD-10-PCS; principal; 2019-03-13 12:00)
DX: M86.171 Other acute osteomyelitis, right ankle and foot (principal); I48.20 Chronic atrial fibrillation, unspecified; N17.9 Acute kidney failure, unspecified; L08.9 Local infection of the skin and subcutaneous tissue, unspecified; L97.514 Non-pressure chronic ulcer of other part of right foot with necrosis of bone; N18.3 Chronic kidney disease, stage 3 (moderate); I25.10 Atherosclerotic heart disease of native coronary artery without angina pectoris; I73.9 Peripheral vascular disease, unspecified; B96.4 Proteus (mirabilis) (morganii) as the cause of diseases classified elsewhere; B95.2 Enterococcus as the cause of diseases classified elsewhere; I25.2 Old myocardial infarction; F12.10 Cannabis abuse, uncomplicated; F17.210 Nicotine dependence, cigarettes, uncomplicated; Z79.01 Long term (current) use of anticoagulants; Z79.2 Long term (current) use of antibiotics; Z79.82 Long term (current) use of aspirin; Z79.899 Other long term (current) drug therapy
CPT/HCPCS: 01480; 36415; 36430; 80048; 80053; 80061; 81001; 82272; 83605; 83735; 84443; 84484; 85025; 85027; 85610; 85652; 86140; 86850; 86900; 86901; 87040; 87070; 87075; 87077; 87186; 87205; 88305; 88311; 93005; 93010; 99284; J0295; J1644; J2020; J2185; J2250; J2270; J2300; J2704; J3010; J3430; J3490; J7121; P9017

== ENCOUNTER → 2019-03-22 | Outpatient (CLI) | payer MEDICARE, MEDICAID ==
[2019-03-22 10:31] LABS: INTERNATIONAL RATION (INR) 2.66; PROTHROMBIN TIME 28.9 SEC (11.4-15.4)
== END ==
LOC: OD 09:06
PROVIDERS: ATTEND Specialist
DX: I48.20 Chronic atrial fibrillation, unspecified (principal); Z79.01 Long term (current) use of anticoagulants; I25.10 Atherosclerotic heart disease of native coronary artery without angina pectoris; I25.2 Old myocardial infarction; I73.9 Peripheral vascular disease, unspecified; E78.5 Hyperlipidemia, unspecified; I12.9 Hypertensive chronic kidney disease with stage 1 through stage 4 chronic kidney disease, or unspecified chronic kidney disease; N18.3 Chronic kidney disease, stage 3 (moderate); F17.210 Nicotine dependence, cigarettes, uncomplicated; G45.9 Transient cerebral ischemic attack, unspecified; I34.0 Nonrheumatic mitral (valve) insufficiency; I36.1 Nonrheumatic tricuspid (valve) insufficiency; R01.1 Cardiac murmur, unspecified; R06.00 Dyspnea, unspecified; Z79.899 Other long term (current) drug therapy
CPT/HCPCS: 36415; 85610

== ENCOUNTER → 2019-04-14 | Outpatient (CLI) | payer MEDICARE, MEDICAID ==
[2019-04-14 18:32] LABS: INTERNATIONAL RATION (INR) 5.36; PROTHROMBIN TIME 50.5 SEC (11.4-15.4)
== END ==
LOC: OD 16:10
PROVIDERS: ATTEND Specialist
DX: I25.10 Atherosclerotic heart disease of native coronary artery without angina pectoris (principal); I25.2 Old myocardial infarction; I48.20 Chronic atrial fibrillation, unspecified; I73.9 Peripheral vascular disease, unspecified; E78.5 Hyperlipidemia, unspecified; F17.210 Nicotine dependence, cigarettes, uncomplicated; I34.0 Nonrheumatic mitral (valve) insufficiency; I12.9 Hypertensive chronic kidney disease with stage 1 through stage 4 chronic kidney disease, or unspecified chronic kidney disease; N18.3 Chronic kidney disease, stage 3 (moderate); R01.1 Cardiac murmur, unspecified; R06.00 Dyspnea, unspecified; Z79.01 Long term (current) use of anticoagulants; Z79.899 Other long term (current) drug therapy
CPT/HCPCS: 36415; 85610

== ENCOUNTER → 2019-04-14 | Outpatient (CLI) | payer MEDICARE, MEDICAID ==
--- NOTE | 2019-04-14 17:48 | RADIOLOGY REPORT (SQ) ---
EXAM DESCRIPTION: FOOT RIGHT COMPLETE COMPLETED DATE/TIME: 04/14/2019 4:42 pm REASON FOR STUDY: CHRONIC ULCER L97.512 NON-PRS CHRONIC ULCER OTH PRT RIGHT FOOT W FAT LAYER I73.9 PERIPHERAL VASCULAR DISEASE, UNSPECIFIED COMPARISON: None. NUMBER OF VIEWS: Three views. TECHNIQUE: AP, lateral and oblique radiographic images acquired of the right foot. LIMITATIONS: None. FINDINGS: MINERALIZATION: Normal. BONES: Amputation of the 3rd and 4th digits from the level of the mid metatarsals. No evidence of os teomyelitis. JOINTS: No effusions. SOFT TISSUES: No soft tissue swelling. No foreign body. OTHER: No other significant finding. IMPRESSION: There is no evidence of osteomyelitis. TECHNICAL DOCUMENTATION: JOB ID: [id number] [employer]- All Rights Reserved Reading location - IP/workstation name: [email or web address]
[2019-04-14 18:09] LABS: ABSOLUTE BASOPHILS # (AUTO) 0.1 10^3/uL (0.0-0.2); ABSOLUTE EOSINOPHILS # (AUTO) 0.2 10^3/uL (0.0-0.6); ABSOLUTE LYMPHOCYTES (AUTO) 2.9 10^3/uL (0.5-4.7); ABSOLUTE MONOCYTES (AUTO) 0.9 10^3/uL (0.1-1.4); ABSOLUTE NEUT (AUTO) 7.4 10^3/uL (1.7-8.2); BASOPHILS % (AUTO) 0.7 % (0-2); EOSINOPHILS % (AUTO) 2.1 % (0-6); HEMATOCRIT 46.4 % (37.9-51.0); HEMOGLOBIN 15.3 g/dL (13.5-17.0); LYMPHOCYTES % (AUTO) 25.5 % (13-45); MEAN CORPUSCULAR HEMOGLOBIN 30.9 pg (27.0-33.4); MEAN CORPUSCULAR HGB CONC 32.9 g/dL (32.0-36.0); MEAN CORPUSCULAR VOLUME 94 fl (80-97); MONOCYTES % (AUTO) 7.7 % (3-13); PLATELET COUNT 247 10^3/uL (150-450); RED BLOOD COUNT 4.95 10^6/uL (4.35-5.55); RED CELL DISTRIBUTION WIDTH 17.7 % (11.5-14.0); TOTAL CELLS COUNTED % (AUTO) 100 %; WHITE BLOOD COUNT 11.5 10^3/uL (4.0-10.5)
[2019-04-14 18:37] LABS: ALBUMIN 4.2 g/dL (3.5-5.0); ALKALINE PHOSPHATASE 118 U/L (38-126); ANION GAP 10 (5-19); ASPARTATE AMINO TRANSFERASE 23 U/L (17-59); BILIRUBIN,DIRECT 0.3 mg/dL (0.0-0.4); BILIRUBIN,TOTAL 0.8 mg/dL (0.2-1.3); BLOOD UREA NITROGEN 25 mg/dL (7-20); C-REACTIVE PROTEIN 16.3 mg/L (<10.0); CALCIUM 9.5 mg/dL (8.4-10.2); CARBON DIOXIDE 27 mmol/L (22-30); CHLORIDE 102 mmol/L (98-107); GLUCOSE 76 mg/dL (75-110); POTASSIUM 4.5 mmol/L (3.6-5.0); TOTAL PROTEIN 7.7 g/dL (6.3-8.2)
[2019-04-14 19:08] LABS: ERYTHROCYTE SEDIMENTATION RATE 18 mm/hr (0-20)
== END ==
LOC: WC 16:15
PROVIDERS: ATTEND Preventive Medicine Undersea and Hyperbaric Medicine
DX: L97.512 Non-pressure chronic ulcer of other part of right foot with fat layer exposed (principal); I73.9 Peripheral vascular disease, unspecified
CPT/HCPCS: 36415; 80053; 85025; 85652; 86140